=== PATIENT | male | born 1955 | race Caucasian/White ===

== ENCOUNTER 2024-02-21 08:27 | Outpatient (OUT) | payer MEDICARE, OTHER, SELFPAY ==
[2024-02-21 10:13] LABS: Basophils Percent Auto 0.5 % (0.2-2.0); Eosinophils Absolute Auto 0.1 10^3/uL (0.0-0.7); Eosinophils Percent Auto 1.7 % (0.9-7.0); Hematocrit 39.3 % (42.0-54.0); Hemoglobin 13.1 g/dL (14.0-18.0); Immature Granulocytes Abs Auto 0.03 10^3/uL (0.00-0.03); Immature Granulocytes Pct Auto 0.4 % (0.0-0.5); Lymphocytes Absolute Auto 1.9 10^3/uL (1.2-3.8); Lymphocytes Percent Auto 24.4 % (20.5-60.0); Mean Corpuscular HGB Conc 33.3 g/dL (29.9-35.2); Mean Corpuscular Hemoglobin 30.5 pg (25.9-34.0); Mean Corpuscular Volume 91.6 fL (80.0-94.0); Mean Platelet Volume 9.4 fL (9.5-13.5); Monocytes Percent Auto 13.3 % (1.7-12.0); Neutrophils Absolute Auto 4.5 10^3/uL (1.4-6.5); Neutrophils Percent Auto 59.7 % (43.0-75.0); Platelet Count 214 10^3/uL (150-450); Red Blood Count 4.29 10^6/uL (4.70-6.10); Red Cell Distribution Width 12.3 % (11.0-15.0); White Blood Count 7.6 10^3/uL (4.0-11.0)
[2024-02-21 11:30] LABS: Alanine Aminotransferase 33 U/L (16-63); Anion Gap 10.7; Aspartate Amino Transferase 24 U/L (15-37); BUN Creatinine Ratio 20.5; Calcium 9.1 mg/dL (8.5-10.1); Carbon Dioxide 24.5 mmol/L (21.0-32.0); Chloride 107 mmol/L (98-107); Chol HDL Ratio 2.6; Cholesterol 102 mg/dL (<=200); Estimated GFR (African America >60 (>=60); Estimated GFR (Non-African Ame >60 (>=60); Glucose 110 mg/dL (74-106); HDL Cholesterol 39 mg/dL (40-60); Potassium 4.2 mmol/L (3.5-5.1); Sodium 138 mmol/L (136-145); Thyroid Stimulating Hormone 7.153 uIU/mL (0.358-3.740); Triglycerides 60 mg/dL (<=150)
== END 2024-02-21 08:28 | disposition home or self-care (01) ==
PROVIDERS: PCP Internal Medicine; Visit Provider Internal Medicine Cardiovascular Disease
DX: E78.2 Mixed hyperlipidemia (principal); Z12.5 Encounter for screening for malignant neoplasm of prostate; I48.92 Unspecified atrial flutter; Z79.899 Other long term (current) drug therapy; E03.9 Hypothyroidism, unspecified
CPT/HCPCS: 36415; 80048; 80061; 84153; 84443; 84450; 84460; 85025

== ENCOUNTER 2024-02-21 08:33 | Outpatient (OUT) | payer MEDICARE, OTHER, SELFPAY ==
[2024-02-21 11:44] LABS: Prostate Specific Antigen Dx 0.89 ng/mL (<=4.00)
== END 2024-02-21 08:34 | disposition home or self-care (01) ==
LOC: LAB 08:34
PROVIDERS: PCP Internal Medicine; Visit Provider Internal Medicine
DX: Z12.5 Encounter for screening for malignant neoplasm of prostate (principal)
CPT/HCPCS: 36415; 84153

== ENCOUNTER 2024-05-02 09:21 | Outpatient (OUT) | payer MEDICARE, OTHER, SELFPAY ==
--- NOTE | 2024-05-02 09:30 | FL_ITS ---
The [address] [address] Patient Name: PAIGE MONTIEL MRN: [id number] date: 1955 Sex: M Assigned Patient Location: [place] Current Patient Location: [place] Accession/Order Number: [id number] Exam Date: 05/02/2024 09:45 Report Date: 05/02/2024 10:32 At the request of: LOGAN GODDARD Procedure: FL upper GI w air PROCEDURE: FL upper GI w air, FL cineradiography COMPARISON: None. HISTORY: Esophageal Dysphagia R13.19 TECHNIQUE: An air contrast upper gastrointestinal series was performed in the usual manner. Standard level fluoroscopic mode of operation utilized. FINDINGS: ESOPHAGUS:Moderate amount of gastroesophageal reflux extending to the thoracic inlet. No abnormal dilation, stricture, or mucosal irregularity. STOMACH: No obstruction, mass, or ulceration. Normal motility. DUODENUM:No ulceration or diverticulum. OTHER: Negative. FL/FL upper GI w air IMPRESSION: 1. Moderate gastroesophageal reflux. Otherwise unremarkable upper GI study. Electronically authenticated by: DAVID KIM Date: 05/02/2024 10:32
--- NOTE | 2024-05-02 09:30 | FL_ITS ---
The [address] [address] Patient Name: PAIGE MONTIEL MRN: [id number] date: 1955 Sex: M Assigned Patient Location: [place] Current Patient Location: [place] Accession/Order Number: [id number] Exam Date: 05/02/2024 09:45 Report Date: 05/02/2024 10:32 At the request of: LOGAN GODDARD Procedure: FL cineradiography PROCEDURE: FL upper GI w air, FL cineradiography COMPARISON: None. HISTORY: Esophageal Dysphagia R13.19 TECHNIQUE: An air contrast upper gastrointestinal series was performed in the usual manner. Standard level fluoroscopic mode of operation utilized. FINDINGS: ESOPHAGUS:Moderate amount of gastroesophageal reflux extending to the thoracic inlet. No abnormal dilation, stricture, or mucosal irregularity. STOMACH: No obstruction, mass, or ulceration. Normal motility. DUODENUM:No ulceration or diverticulum. OTHER: Negative. FL/FL cineradiography IMPRESSION: 1. Moderate gastroesophageal reflux. Otherwise unremarkable upper GI study. Electronically authenticated by: DAVID KIM Date: 05/02/2024 10:32
--- OUTSIDE RECORDS SUMMARY | 2024-05-02 09:43 | XMS_ITS | CCD ---
Author Organization [facility] Care Team Providers Care Supervisor [employer] Name Role Phone Brian Crowley Primary Care Provider Brian Do Unavailable BRIAN DO Admitting Unavailable BRIAN DO Attending Unavailable BRIAN CROWLEY Referring Unavailable BRIAN CROWLEY Primary Care Unavailable Brian Crowley II Primary Care Provider [phone] Day Romano Unavailable LAURYN Crowley Primary Care Provider [phone] DO Sujit White Emergency Provider Unavailable Unavailable LAURYN Crowley Primary Care Provider DO Sujit White Emergency Provider [phone] DO Vivek Muñiz Admit Provider [phone] DO Vivek Muñiz Attending Provider Unavailable Unavailable DR DAY ROMANO Attending Unavailable ROMANO, DR DAY [place] Consulting Unavailable ROMANO, DR DAY o[place] Admitting Unavailable KEO, DR FORD Primary Care Unavailable [facility] Unavailable KEO, DR FORD Primary Care Unavailable HEMYADIEL, DR NEGIN [place] Admitting Unavailable HEMYADIEL, DR NEGIN [place] Attending Unavailable HEMMER, DR NEGIN [place] Consulting Unavailable KEO, DR FORD Primary Care Unavailable [facility] Unavailable HEMYADIEL, DR NEGIN [place] Admitting Unavailable HEMYADIEL, DR NEGIN [place] Attending Unavailable HEMYADIEL, DR NEGIN [place] Consulting Unavailable LAURYN Crowley Primary Care Provider [phone] DO Jose Owens Attending Provider Jose Owens Attending Unavailable Brian Crowley Primary Care Unavailable Jose Owens Admitting Unavailable Fringjimenez, Vivek Admitting Unavailable Fringjimenez, Vivek Attending Unavailable Brian Crowley Primary Care Unavailable Graciela, Joseluis Meredith Attending Unavail able BRIAN CROWLEY Primary Care Unavailable Graciela, Joseluis Meredith Admitting Unavail able Graciela, Joseluis Meredith Admitting Unavail able Graciela, Joseluis Meredith Attending Unavail able BRIAN CROWLEY Primary Care Unavailable Keo COMBS, Dr. Brian Cano Primary Care [facility] [place] Referring Unavailable Day Romano Attending Unavailable Day Romano Attending Unavailable Keo COMBS, Dr. Brian Cano Primary Care [facility] [place] Referring Unavailable Brian Crowley MD Primary Care Provider [phone] DAY ROMANO Attending BRIAN Riojas Primary Care Unavailable CATHY DUMONT Attending BRIAN Riojas Attending Unavailable BRIAN CROWLEY Attending Unavailable Allergies Allergy Classification Reported Allergen(s) Allergy Type Date of Onset Reaction(s) Facility (1 source) hydrALAZINE Drug Allergy 02-24-2017 [facility] Medications Current Medications Medication Drug Class(es) Dates Sig (Normalized) Sig (Original) amLODIPine 10 mg oral tablet (8 sources) Dihydropyridine Calcium Channel Megan Start: 12-25-2021 End: 02-15-2024 take 1 tablet by mouth once daily amLODIPine (Norvasc) 10 mg tablet Take 1 tablet (10 mg) by mouth once daily. 12/25/2021 02/15/2024 Discontinued (Side effects) Comment on above: Take 10 mg by mouth once daily. apixaban 5 mg oral tablet (9 sources) Factor Xa Inhibitor Start: 02-12-2024 End: 02-15-2024 take 1 tablet by mouth twice daily Eliquis 5 mg tablet Indications: Unspecified atrial flutter (Multi) TAKE 1 TABLET BY MOUTH TWICE A DAY 180 tablet 3 02/12/2024 02/15/2024 Discontinued (Med List Cleanup) Start: 02-23-2022 take 2 tablets by [facility] twice daily Apixaban (Eliquis) 2.5 mg Tablet Active 5 MG PO Twice daily February 23, 2022 12:00am Start: 02-23-2022 take 1 tablet by farzana th twice daily Apixaban (Eliquis) 2.5 mg Tablet Active 2.5 MG PO Twice daily February 23, 2022 9:28am Start: 11-26-2021 take 1 tablet by farzana th twice daily Eliquis 5 MG Oral Tablet take 1 tablet by mouth twice a day Quantity: 180 Refills: 3 Ordered: 10-Jan-2023 Day Romano MD Start : 26-Nov-2021 Active Comment on above: Take 5 mg by mouth t wice daily. atorvastatin 40 mg oral tablet (8 sources) HMG-CoA Reductase Inhibitor Start: 2 take 1 tablet by mouth once daily atorvastatin (Lipitor) 40 mg tablet Take 1 tablet (40 mg) by mouth once daily. 12/03/2021 Active Comment on above: Take 40 mg by mouth once daily. carvedilol 12.5 mg oral tablet (6 sources) alpha-Adrenergic Megan, beta-Adrenergic Megan Start: 2 take 12.5 mg by mouth twice daily Carvedilol Active 12.5 MG PO Twice daily June 25, 2022 12:00am Start: 02-26-2022 take 1 tablet by farzana twice daily at mealtime carvedilol (COREG) 12.5 mg tablet Take 1 tablet by mouth twice daily with meals. 60 tablet 1 02/26/2022 Active take 1 tablet by farzana twice daily carvedilol (Coreg) 6.25 mg tablet Take 1 tablet (6.25 mg) by mouth 2 times daily (morning and late afternoon). Active take 0.5 tablet by m outh in the morning, then take 1 tablet by mouth in the evening Carvedilol 12.5 MG Oral Tablet take 1/2 tablet in the morning, and one whole tablet in the evening Quantity: 0 Refills: 0 Ordered: 10-Jan-2023 DO Active Comment on above: Take 1 tablet by farzana twice daily with meals. chlorthalidone 25 mg oral tablet (4 sources) Thiazide-like Diuretic Start: 2 take 25 mg by mouth once daily Chlorthalidone Active 25 MG PO Daily June 25, 2022 12:00am Start: 02-27-2022 take 1 tablet by farzana th once daily chlorthalidone (HYGROTON) 25 mg tablet Take 1 tablet by mouth once daily. 30 tablet 1 02/27/2022 Active Comment on above: Take 1 tablet by farzana th once daily. ezetimibe 10 mg oral tablet (8 sources) Dietary Cholesterol Absorption Inhibitor Start: take 1 tablet by mouth once daily ezetimibe (Zetia) 10 mg tablet Take 1 tablet (10 mg) by mouth once daily. 09/15/2021 Active Comment on above: Take 10 mg by mouth once daily. GABAPENTIN, BULK, MISC (1 source) GABAPENTIN, BULK , MISC 2 times a day. Active hydroCHLOROthiazide 25 mg / triamterene 37.5 mg oral tablet (7 sources) Potassium-sparing Diuretic, Thiazide Diuretic Start: End: take 1 tablet by mouth once daily triamterene-hydrochl orothiazid (Maxzide-25) 37.5-25 mg tablet Take 1 tablet by mouth once daily. 12/12/2021 Active levothyroxine sodium 0.15 mg oral capsule (7 sources) l-Thyroxine Start: take 150 ug by mouth once daily Levothyroxine Active 150 MCG PO Daily February 23, 2022 12:00am Start: 01-19-2022 take 1 tablet by farzana th once daily Levothyroxine Sodium 150 MCG Oral Tablet TAKE 1 TABLET DAILY. Quantity: 0 Refills: 0 Ordered: 19-Jan-2022 DO Start : 19-Jan-2022 Active Comment on above: Take 150 mcg by mout h daily before breakfast. olmesartan medoxomil 40 mg oral tablet (8 sources) Angiotensin 2 Receptor Megan Start: 2 take 1 tablet by mouth once daily olmesartan (BENIcar) 40 mg tablet Take 1 tablet (40 mg) by mouth once daily. 11/30/2021 Active Comment on above: Take 40 mg by mouth once daily. pantoprazole 40 mg delayed release oral tablet (8 sources) Proton Pump Inhibitor Start: 2 take 1 tablet by mouth once daily pantoprazole (ProtoNix) 40 mg EC tablet Take 1 tablet (40 mg) by mouth once daily. 10/13/2021 Active Comment on above: Take 40 mg by mouth once daily. potassium chloride 20 meq extended release oral tablet (8 sources) Start: take 20 mEq by mouth once daily Potassium Chloride Active 20 MEQ PO Daily February 23, 2022 12:00am Start: 12-03-2021 End: 02-15-2024 take 1 tablet by mouth twice daily potassium chloride CR 20 mEq ER tablet Take 1 tablet (20 mEq) by mouth 2 times a day. 12/03/2021 02/15/2024 Discontinued (Med List Cleanup) take 1 tablet by farzana th once daily potassium chloride CR 20 mEq ER tablet Take 1 tablet (20 mEq) by mouth once daily. Do not crush or chew. Active tamsulosin hydrochloride 0.4 mg oral capsule (8 sources) alpha-Adrenergic Megan Start: 11-09-2021 take 1 capsule by mouth once daily tamsulosin (Flomax) 0.4 mg 24 hr capsule Take 1 capsule (0.4 mg) by mouth once daily. 11/09/2021 Active Comment on above: Take 0.4 mg by mouth once daily. tiZANidine 4 mg oral tablet (7 sources) Central alpha-2 Adrenergic Agonist Start: 01-27-2022 End: 02-15-2024 take 1 tablet by mouth once daily at bedtime tiZANidine (Zanaflex) 4 mg tablet Take 1 tablet (4 mg) by mouth once daily at bedtime. 01/27/2022 02/15/2024 Discontinued (Therapy completed) Start: 01-27-2022 take 4 mg by mouth t hree times daily Tizanidine Active 4 MG PO Three times daily June 25, 2022 12:00am Comment on above: Take 4 mg by mouth o nce daily. Completed/Discontinued Medications Medication Drug Class(es) Dates Sig (Normalized) Sig (Original) levoFLOXacin 500 mg oral tablet (1 source) Quinolone Antimicrobial take 1 tablet by mouth once daily levoFLOXacin 500 MG Oral Tablet TAKE 1 TABLET DAILY. Quantity: 0 Refills: 0 Ordered: 31-Jan-2022 DO Active spironolactone 50 mg oral tablet (1 source) Aldosterone Antagonist Start: 02-27-2022 take 1 tablet by mouth once daily spironolactone (ALDACTONE) 50 mg tablet Take 1 tablet by mouth once daily. 30 tablet 1 02/27/2022 Active Comment on above: Take 1 tablet by farzanaazar rizo once daily. Problems Active Problems Problem Classification Problem Date Documented Da te Episodic/Chronic Aortic; peripheral; and visceral artery aneurysms (9 sources) Dissection of aorta; Translations: [Dissection of unspecified site of aorta] Onset: 02-23-2022 02-23-2022 Chronic Cardiac dysrhythmias (8 sources) Longstanding persistent atrial fibrillation; Translations: [Longstanding persistent atrial fibrillation] Onset: 06-20-2019 02-23-2022 Chronic Cardiac dysrhythmias (1 source) Bradycardia; Translations: [Bradycardia, unspecified] 02-15-2024 Episodic Complications of surgical procedures or medical care (1 source) Drug-induced hypotension; Translations: [Hypotension due to drugs] 02-15-2024 Episodic Disorders of lipid metabolism (8 sources) Mixed hyperlipidemia; Translations: [Mixed hyperlipidemia] Onset: 02-23-2022 02-23-2022 Chronic Essential hypertension (8 sources) Essential hypertension; Translations: [Essential (primary) hypertension] Onset: 02-23-2022 02-23-2022 Chronic Other aftercare (2 sources) Drug therapy finding; Translations: [Long-term (current) use of other medications] Episodic Other aftercare (2 sources) Taking high risk medication; Translations: [Other jail (current) drug therapy] Onset: 11-06-2023 02-15-2024 Episodic Other aftercare (2 sources) Other superintendent terminal (current) drug therapy; Translations: [Other superintendent terminal (current) drug therapy] Onset: 11-06-2023 Episodic Other circulatory disease (4 sources) Other specified disorders of arteries and arterioles; Translations: [OTH SPEC D/O ARTERIES AND ARTERIOLES] Onset: 02-18-2022 Chronic Other injuries and conditions due to external causes (2 sources) At risk for falls ; Translations: [History of fall] Episodic Other nutritional; endocrine; and metabolic disorders (1 source) Simple obesity ; Translations: [Obesity, unspecified] Chronic Other nutritional; endocrine; and metabolic disorders (2 sources) Obesity; Translations: [Obesity, unspecified] Chronic Other nutritional; endocrine; and metabolic disorders (2 sources) Body mass index 30+ - obesity; Translations: [Body mass index (BMI) 38.0-38.9, adult] Onset: 02-15-2024 02-15-2024 Chronic Other nutritional; endocrine; and metabolic disorders (2 sources) Body mass index (BMI) 38.0-38.9, adult; Translations: [Body mass index (BMI) 38.0-38.9, adult] Onset: 02-15-2024 Chronic Other nutritional; endocrine; and metabolic disorders (2 sources) H/O: hypothyroidism; Translations: [Personal history of other endocrine, nutritional and metabolic disease] Onset: 02-23-2022 02-23-2022 Episodic Other nutritional; endocrine; and metabolic disorders (1 source) H/O: raised blood lipids; Translations: [Personal history of other endocrine, nutritional and metabolic disease] Onset: 02-23-2022 02-24-2022 Episodic Residual codes; unclassified (4 sources) Sleep apnea; Translations: [Unspecified sleep apnea] Onset: 11-06-2023 02-15-2024 Chronic Residual codes; unclassified (2 sources) Sleep apnea, unspecified; Translations: [Sleep apnea, unspecified] Onset: 11-06-2023 Chronic Thyroid disorders (10 sources) Hypothyroidism; Translations: [Unspecified acquired hypothyroidism] Onset: 01-13-2023 Chronic Past or Other Problems Problem Classification Problem Date Documented Da te Episodic/Chronic Nonspecific chest pain (6 sources) Chest pain; Translations: [Chest pain, unspecified] Onset: 06-25-2022 06-25-2022 Episodic Other lower respiratory disease (4 sources) Pleurodynia; Translations: [PLEURODYNIA] Onset: 02-08-2022 Episodic Unclassified (2 sources) Never smoked tobacco; Translations: [Never a smoker] Unclassified (1 source) Onset: 02-15-2024 02-15-2024 Results Test Name Value Interpretation Reference Range Facility Office Visit (Cardiology)on 06-08-2023 Follow-up visit Diagnoses/Problems Assessed Atrial flutter (427.32) (I48.92) Hypertension (401.9) (I10) Hyperlipidemia (272.4) (E78.5) Type 1 dissection of ascending aorta (441.01) (I71.010) High risk medication use (V58.69) (Z79.899) Class 2 obesity with body mass index (BMI) of 36.0 to 36.9 in adult (278.00,V85.36) (E66.9,Z68.36) Never a smoker Patient Instructions Please bring all medicines, vitamins, and herbal supplements with you when you come to the office. Prescriptions will not be filled unless you are compliant with your follow up appointments or have a follow up appointment scheduled as per instruction of your physician. Refills should be requested at the time of your visit. Follow up in 6 months Same meds.-remain on Coreg 6.25 mg Chief Complaint PAIGE MONTIEL is being seen for a 6 month follow-up of. Patient is in the office for follow-up for the problems noted below. He has had no cardiac events since he was last seen but he had to cut back on his beta-megan due to dizziness when he stands up. He had recent lab data which I reviewed and discussed with him and his numbers look great. He sees his PCP regularly. He lost 22 pounds since his last visit by healthy lifestyle that he adopted. He was encouraged to continue on same pattern. He has chronic atrial flutter treated with Eliquis and his rate is controlled. He does not have any symptoms associated with it. Apart from class II obesity physical examination was unremarkable Assessment/recommendations : 1?permanent atrial flutter that remains asymptomatic status post radiofrequency ablation.. The patient will be managed with rate control and anticoagulation due to lack of symptoms, Nuclear stress test at [facility] 2018 was normal, echocardiogram 2021 showed normal ejection fraction in 2020 2?high-risk medication with anticoagulation with no bleeding complications, CBC is ordered 3?hypertension on medical therapy under control, 4?sleep apnea on CPAP machine 5?hyperlipidemia on statin therapy,Lipid profile is under excellent control 6?Class II obesity, The patient changed his lifestyle and lost 22 pounds in the process by eating healthy and maintaining adequate exercise. 7?hypothyroidism on replacement therapy followed by PCP 8?status post type I ascending aortic dissection status post surgical repair in [place], most recent CT scan was June 2022 with no progression or changes Surgical History Problems History of Aortic valve repair History of Complete colonoscopy History of Elbow surgery History of Knee replacement History of Lower back surgery Current Meds Medication NameInstruction amLODIPine Besylate 10 MG Oral TabletTAKE 1 TABLET DAILY. Atorvastatin Calcium 40 MG Oral TabletTAKE 1 TABLET DAILY. Eliquis 5 MG Oral Tablettake 1 tablet by mouth twice a day Ezetimibe 10 MG Oral TabletTAKE 1 TABLET DAILY. Levothyroxine Sodium 175 MCG Oral TabletTAKE 1 TABLET DAILY. Olmesartan Medoxomil 40 MG Oral TabletTAKE 1 TABLET DAILY. Pantoprazole Sodium 40 MG Oral Tablet Delayed ReleaseTAKE 1 TABLET DAILY. Potassium Chloride ER 20 MEQ Oral Tablet Extended ReleaseTake 1 tablet twice daily Tamsulosin HCl - 0.4 MG Oral CapsuleTAKE 1 CAPSULE Daily tiZANidine HCl - 4 MG Oral TabletTAKE 1 TABLET AT BEDTIME. Triamterene-HCTZ 37.5-25 MG Oral TabletTAKE 1 TABLET DAILY. Allergies Medication No Known Drug Allergies Recorded By: Eneida Rosenthal; 12/17/2021 10:04:44 AM Social History Problems Alcohol ingestion (V69.8) (Z78.9) ON THE WEEKENDS Caffeine use (V49.89) (Z78.9) 4 CUPS OF COFFEE DAILY Never a smoker No illicit drug use Review of Systems Constitutional: not feeling tired. Cardiovascular: no intermittent leg claudication and as noted in HPI. Respiratory: no cough and no shortness of breath. Gastrointestinal: no change in bowel habits and no blood in stools. Integumentary: no skin rashes. Neurological: no seizures and no frequent falls. All other systems have been reviewed and are negative for complaint. Vitals Vital Signs Recorded: [id number] 08:49AM Heart Rate74, L Radial Qfxajrhx453, LUE, Sitting Caislasrh49, LUE, Sitting Height6 ft 5 in Pabbto289 lb BMI Rsedwkvhxf49.64 kg/m2 BSA Calculated2.69 Tobacco Useb) No Falls Screening (Age 18+)a) No falls within the last year Physical Exam Constitutional: alert and in no acute distress. Neck: neck is supple, symmetric, trachea midline, no masses and no thyromegaly . Pulmonary: no increased work of breathing or signs of respiratory distress and lungs clear to auscultation. Cardiovascular: carotid pulses 2+ bilaterally with no bruit , JVP was normal, no thrills , regular rhythm, normal S1 and S2, no murmurs , pedal pulses 2+ bilaterally and no edema . Abdomen: abdomen non-tender, no masses and no hepatomegaly . Skin: skin warm and dry, normal skin turgor . Psychiatric judgment and insight is normal and oriented to person, place and time . Signatures El (more content not included)... Normal [facility] Coding Summaryon 05-03-2023 Coding Summary HTMLBase 64 OoyuowgjVXf4lHj+PGhlYWQ+PE 6JWGGdY94rkVYalS7gN9POJOmP XaukMZVYBZhVBvMosaUtXG2epZ NjZXJu IC8+UK5tYXTtYyowgFRio6E5uE D1Q25qxu2bIHftbTO5KYBdDyPv vpmbq1nuiJu5HZkoAdqjIqHa SPHvxL03GZG0cK62Ix80zHGccJ Iqr1goyCh4BqOlSHToTXF8qCza ACveb3WlCWEaU79fdCYxa1D5 XHUmvQlliXKgIlKjnXE0nJ6hTG tsllgty5ufnwtqYwl8pq04aMWk z8F6rCQ4B9GmsrT2GZJelJEn WgkogKPAaI5tjwxfs6aigcxfSd HxTGXiSRr0FTx1JDDegBniLmRy VB50XKX0LINhboAmK7KwBCGa jEvrBuD0j3W0Zr1CD0GPWvrdT9 VNTUFSWTwvdGQ+WJ86ae48A9Km JgmlZpc2GWVoEXL5pKN4pG2v QTTnYQcbh8J7cVA1R3IqldMiiv 0lh3afSVEaRPbzL02olOWdp5M7 ZYDjqCV9MDZoeZbeEkSrfU19 Oyc+MTChaOszm3CmLlarl1snb2 tfdAa6StkwSDDeetBcvNiwATY3 q4VpDx9cAESahBB6gYK9hH8q RoWyQgA9FCfuE809LnLuuLTpQp pkU91vS8DwsYN+JDHgBkt0ZODh lBivJU4rC5XhAATomovkrZYw uAhsLE8uHVLmlwntPXFxxN1dDW WfM6g9AfYcQpK5ZAssR9LyIDOq pkbtXv75xD1rVeFqCuH6CTkq B1QqkuL1ECQzpGStMMvpDSW8O0 9sj7Z9FKDqZYAaHGQ1gNW7tD5o bGlnbjogbGVmdDsgdmVydGlj XEuxSPykR040PHIllZsaJsIhIW luZyBEYXRlOiAgMDgvMjMvMjAy MzwvdGQ+EEAfHQG1yLkwXNTc bFRzYGrpSy4haXijgFhtYT7qYX ZebdvyZGBarA4aMJZsdRThmFdz RI0yWLPhthvff768RdZsVZF9 XGXdlFZdY0AqaP8pEsIzKEDrZW UcT9LagKEcIRhxN920QTlmZpP7 SDAynvZyF6NwZOCbwIbsNqW2 j9S0Mr6He1EjiariT9LgiYWdMr KaPshyIUg2D0RoBkaowTH+PC90 RQWfCJ01HUl3DQP6eYwvSAqd ZHGcU3KbtS5oSmSpJSRqYZYrBo c+PHRhYmxlIHdpZHRoPScxMDAl FwPkbIzhJM6zNx6yKNCrOQUs aHtcuXUzDlPcz3vsQRLiDGqbTB 8ysEbmS5QkrSQ9XJXag4b5Ha31 S08iT9LzuPA+TLKvqCZ1xEH6 yC7jUjQmEeA5QOliS277VgBtvY OgTjysr7dqr9mtsWd4IjU6HOMu saDsbAhnJRG2l4MwRi36D83z IHdpZHRoPSIxNSUiIHZhbGlnbj 0pxB2gQi2+ZRNkoSG0rXT5hA8q XiTnQpV7QDxiM086MoQgvDFu Cvnxb0bjw5eljNe8QaVqLOAiss LmxHjbZWX5z5VzAk54H1BmsAyz p2EtLna0ut27dKWos5R2dJX8 I2GtGXHbkoeioTYmvPjmOD3pZB OklwvhWGCjaT2hZAJtQ3l9BqQz ZhY6LWldJ2KumiC8YCUmmIVz WABzuDUFoM6dysppx4tlskopPn HfBJYrQLi4NSh4DACtdWriXkQo WNN2OfO3RNS1kKJlvA0uxKcd pptrqU2bMgz+UKQ9qPFbjYDCDM 1lOjwvdGQ+JCBfUYH6zKsgCLnk DOOjnS4yLSFwR9l2XmEaHcY3 JCfzS1ZmmcQ5PBXrmTIaYAWxkJ TYcL9wgsona3cgweuaUeImNKNa LUa7KKf3ACXhaEvrUqTaONK8 LaI2KYY4zSRinG5oiIncxngpyA 9wOyc+QltffIkhSND9ZGp7I0Zt Bjf0TVJyzDcsTN8ukHNgMJht Lr8xcHpzqPwiKT0pREReqkyng4 67EeHes0vxHFBbpQJnTQnkWGU1 C28ir1T9EIFjULYkIBS9zEU2 eJ2qfPosateeqKSjxBfydePxfK fsIFcbVRqlT374BCShkEhgBzKt GDr7I8AmJhv8QBImfJywDZ5d eQZpTUtxLl3hcLsjwRmkRE3tTH Brkqcpl705EdUje0avEOIlvDCc SPleRUN3M84cu0K4IBDwUCDf SVZ8eQF4sQ2qgYdbeevdvUWzsJ ddjhXckUdcPJjwMEadF499GEVf bSflRzQqcSd6V9ZpMob4WYFs hOhiGO4cwFVqKTliEy0bzNxcwA xbPQ1zKEXtarhfg252JhAfx6kp VBNruJAcHFzzNYM7R84db4F6 IYIjWPFfTUQ5sHZ2fQ8jgGkuzr ogbGVmdDsgdmVydGljYWwtYWxp K050WMKroZvjBiZaxCnvzbWd COopNOm3H2HbIhplxBQ+PC90YW RiVD91uYTxrMYqm9nghMk5CaXb AUSrMLO2vRteZNakj3ZxOAPh N46lmQQqz4G2RLHajZzyqCQnMg MhhTK4lM5xYEjtiuukm7vtqroy Ltzue1hmey34kS74O54oCIuz LUNeJSCaPCPjBHPgmLyooo4uyZ 9wIi8+SCEcvQA2hKJ1gI6fBBYr CwL7RRmpA996JaYpiCVpMmdj q0mch6fcyKv8DzD6XNHdlvWsmI xlJYS0y3UfBw77I85eBKmsQOCa EUQhVLIwLVKdjRgbha1hdA4x Ii8+VHYodMS8pJC3xU3jOtFzQr S3RRysX880PoSvnHExBzgaS05a D7MgmRD+XGZrUxn6KOBdvDwj SN8loWArQTboCp5fEIQ6AiSxFz PqVCixT3LkMNVevtedjrzzjCM5 YKKwJJMvkE59Rh2cvYjlNNZg wFNXtY4rhlzgi8vvkoalFsHiHC ZxODa7LNb5JUDpnUxsMkVeKOD3 XqF0XHW3sKBykM8gpEruifkl yY0oV2CdIXPgpfmeXw50uP8yIv ZoXjZ9OLrmZyq+P1iJSCRIRgqb R1DFFDLRRTqXPySFIV78YB35 vOHdr3O7pSH9V4PzFJMqictvjx obyUQ4HHUfPJIlrU06rDBkMGpi Qv8gm0E9q534HNPnMHZghQ81 Kr9fgKzcTOLpfIFGsL1qvtiwt9 phweczZyYdTPXcBMa0TAu8SXFi uQtgVuRfTGW9LjE9GIY0fRYo zG0saSnyypbjzX8wDsv+MDkvMj JlBRi4QFxmpOC+LLDxGWM8qYzk CXbdIBLczB8lXUUbT4r1TmYu BuP1NQnkM2DsJFXhjdeaXo21pQ 7vUwMxDpL3QXcnJ0KxsmK2DTHs xPQqJDgeOYR5O45px1V4CJIg IPKiQQR8kEE7cA1yiDwlpbvbxH HqlZrndrPfrPxiXObjULicG283 KCUjfVffNmM5CLenRCJyYS66 RA63bZQzs2B7cYS4W7IrBDZyem mcopzhnJC1IHEbVCUzzA34rHEs PQyfEr1sn7L3b836CAInPNZb lM14Nq2fpJivUATbfQOEtW9iwt hqi8ebyicfUiFsYEDvIHa8RBk3 PSQmiUugOgJyAFA0LoV8WEH8 wTJtzG4smVwbsllszY0wCuw+TU FMRTwvdGQ+PTGlANF6lUdkETve MDCttT7yTHGtY2o5AwYzPvI2 OOriR3AcTWKtfgvvHb11gI6eZr OqXmP2VSihG2QhugU7VKTvtLMb VItiQPG9Q86ih7W2BQLmNFWe OMJ0rVQ2aU6dyMwaiaukaVVntP rtycBgyGwpPBwqCBxqC160PDGs zIvjGzOyoLXSgRDqCIL8GI75 ZI44E9QgHheomVKfxYZ+PHRhYm xlIHdpZHRoPScxMDAlJyBzdHls HE9tVj0uVGYyERHetMqqlTFv SpYnh9fnPNYvYExpCR1qqEdfV8 CccGD3GILqk3c8Fz58L41nY4Dv dXA+EXNpeVG3aVP5bG7uPlOl WhA3LVdhZ161QsPdiMOwVsshg0 hdp2kyuPx8GjRwFFJnyrTqzCku PXU7g4HlTz43X07eAYypJFAd TMMmUGHmHHHqdXgtep1ciH7mRn 8+YIXddOG2qKI7pH2uVeSePxE5 WXkwY789QqQnzDWjMtphV92w J7QoxZM+YLUgGvw6MHImoEwlFV 7htZEdTRjbFm9dRAA1LbQyEkJf VApgQ5LiTUKkwnpdvyuijFG9 KKTyCFGcsS46Ag6ujAvuNm1uSS YyKDX1VISweXNsI7MxiY9qEbWw LYKeIBPyX2LepGJrZJyrW979 BQcsIiV9VLQunpKzV8WnCUIsgT fxUmO2a2P3Fo5WdSkayLIeFJ0m TdQwGVl1F3OeQfb6YUJbbGtx BP5vxSNyYSsnCt2wlQlxdWwiWL 9aRGDlhsnls939CbPjy3djOVIj pRQnZLsbOFM0H22bb2V9AVOs GZHwCUJ9hNA6xE4reYmjwdnaeQ RlbCsoufMorHqgZNdcTInuO203 YHNfaMyzQiVQVju0Q8OjDhh7 PPAirHcgGY0acDNzQJkhMi7dgV ybmAozXJ8bYBAasfbwa580CbUz b8geCQWukPWtIHvbDTE3Q58z w9H6WGYiFRCvMCE2yER3gV1jzJ lnbjogbGVmdDsgdmVydGljYWwt TMitH029GYGfdIanNe9DNkn2 L8WlZss7PJRytMjmOO0orKFvGY ibVb6lpYsgdMtvMG7uKKVrbqrb o765HxAqu2kkTAHuvNZqHRxf DHQ8G32ux2S6NZYbSHZeHZV3hN A2lI0dnFxvnmzvzIWnpWiigcRz gKwcBCayEUebC806YPHxpDxt PlBheWVyOjwvdGQ+XS82gb71M2 JfXbcrMsb5NXUhHMU4lDS6jE7w NYVlFNywa3U6fSV6W6HdaoAn ci1 (more content not included)... [facility] Resultson 3 [facility] - [facility] Results [id number]#1.[facility] Teston Pathology Send Out. See Report [facility] Comment on above: Order Comment: GANGL ION CYST OF RIGHT ELBOW Performed By: #### 2 [id number] ####[facility] (DEFAULT)[address] [place] [address] Consent Formson 04-25-2023 Consent Forms [id number]#1.[facility] Discharge Instructions [id number]#1.00[facility] Outside Recordson 04-25-2023 Outside Records [id number]#1.00[facility] Telemetry Stripson 3 Telemetry Strips [id number]#1.00[facility] 04-24-2023 Anesthesia Note Patient: SA HELEN MONTIEL Age: 67 years Sex: MALE : 1955 Associated Diagnoses: None Author: Jeromy Holman MD Postoperative Information Anesthetic utilized: General. Assessment Anesthetic outcome No anesthetic complications noted. Plan Transfer/ Discharge: Patient can be discharged from PACU when criteria met. Condition good. [Electronically Signed on: 04/24/2023 12:21 EDT] Jeromy Holman MD [Verified on: 04/24/2023 12:21 EDT] Jeromy Holman MD [facility] Anesthesia Note Patient: SA HELEN MONTIEL Age: 67 years Sex: MALE : 1955 Associated Diagnoses: None Author: Jeromy Holman MD Preoperative Information Anesthesia history: Family history. Patient history: No prior anesthesia problems. Review of Systems Constitutional: Negative. Cardiovascular: No Chest Pain. No SOB. Health Status Allergies: Allergic Reactions (All) No known allergies Current medications: Home Medications (13) Active amLODIPine 10 mg oral tablet 10 mg = 1 tab(s), PO, Daily apixaban 5 mg oral tablet 5 mg = 1 tab(s), PO, BID atorvastatin 40 mg oral tablet 40 mg = 1 tab(s), PO, Daily carvedilol 12.5 mg oral tablet 12.5 mg = 1 tab(s), PO, BID chlorthalidone 25 mg oral tablet 25 mg = 1 tab(s), PO, Daily gabapentin 100 mg oral capsule 200 mg = 2 cap(s), PO, TID Klor-Con M20 oral tablet, extended release 20 mEq = 1 tab(s), PO, Daily levothyroxine 175 mcg (0.175 mg) oral tablet 175 mcg = 1 tab(s), PO, Daily olmesartan 40 mg oral tablet 40 mg = 1 tab(s), PO, Daily pantoprazole 40 mg oral delayed release tablet 40 mg = 1 tab(s), PO, Daily spironolactone 50 mg oral tablet 50 mg = 1 tab(s), PO, Daily tamsulosin 0.4 mg oral capsule 0.4 mg = 1 cap(s), PO, Daily Zetia 10 mg oral tablet 10 mg = 1 tab(s), PO, Daily Problem list (past medical history): All Problems Aortic dissection / SNOMED CT 157701441 / Confirmed H/O hyperlipidemia / SNOMED CT 876576530 / Confirmed H/O sleep apnea / SNOMED CT 365786003 / Confirmed H/O atrial flutter / SNOMED CT 5810761677 / Confirmed HTN (hypertension) / SNOMED CT 3230126508 / Confirmed Hypothyroid / SNOMED CT 33267006 / Confirmed Histories Family History: Aorta Father Procedure history: Dissection of ascending aorta and aortic arch ([id number]) in 2013 at 58 Years. 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 Back ([id number]) in 2010 at 56 Years. Comments: 04/18/2023 13:30 Ijeoma Mcghee RN rods in back Colonoscopy ([id number]). Social History Electronic Cigarette/Vaping Assessment Electronic Cigarette Use: Never. Alcohol Assessment Use: Current. Beer, 1-2 times per week Tobacco Assessment Never tobacco user Tobacco Use:. Substance Abuse Assessment Substance use: Never. Employment/School Assessment Retired . Social & Psychosocial Habits Alcohol 04/18/2023 Alcohol Use: Current Type: Beer Frequency: 1-2 times per week Employment/School 04/18/2023 Status: Retired Substance Use 04/18/2023 Substance use: Never Tobacco 04/18/2023 Smoking tobacco use: Never tobacco user Electronic Cigarette/Vaping 04/18/2023 Electronic Cigarette Use: Never . Physical Examination Pain assessment: Self-reports no pain. General: Alert and oriented. Airway: Mallampati classification: II (soft palate, fauces, uvula visible). Temporomandibular joint mobility: Good. Mouth: Teeth ( Several missing; deines loose ). HENT: Normocephalic. Respiratory: Lungs are clear to auscultation. Cardiovascular: Regular rhythm. Neurologic: Alert, Oriented. Review / Management Laboratory Results Plan Citizen Of The [place] Society of Anesthesiologists#(ASA) physical status classification: Class III. Anesthetic Preoperative Plan Anesthesia: General. . Anesthetic plan, risks, benefits, and alternatives discussed with the patient and/or family. Patient verbalized understanding. Informed consent was given. Anesthetic technique: General anesthesia. [Electronically Signed on: 04/24/2023 10:43 EDT] Jeromy Holman MD [Verified on: 04/24/2023 10:43 EDT] Jeromy Holman MD Normal [facility] Inpatient Patient Summaryon 04-24-2023 [place]patient [place] [address] Patient Discharge Instructions Name: DINESHPAIGE : 1955 Patient Address: [address] [place] [address] Primary Care Provider: Name: BRIAN CROWLEY After you are discharged if you find you have any questions, please, call [phone] ext [phone] to speak to a nurse. Discharge Diagnosis: Ulnar neuropathy at elbow of right upper extremity Prescription Information: If you have been given a prescription for narcotics, seek immediate medical attention if you have any difficulty breathing or any sudden status changes such as confusion and sleepiness. If you or anyone you know is experiencing suicidal thoughts, mental health, alcohol and/or drug addiction problems; contact the [facility] 03/04 Crisis Hotline -Text 4HIYF rb [phone]. If you received any narcotics, sedation, or any other medication that causes drowsiness for the next 24 hours, unless otherwise directed: ? Do not drive a car. ? Do not operate machinery such as power tools, lawn mowers, drills, sewing machines, or stoves ? Avoid alcoholic beverages and drugs for allergies, nerves, or sleep ? Do not make important personal or business decisions or sign any legal documents [facility] would like to thank you for allowing us to assist you with your healthcare needs. The following includes patient education materials and information regarding your injury/illness. PAIGE MONTIEL has been given the following list of follow-up instructions, prescriptions, and patient education materials: Follow-up Instructions With: Address: When: Javi [address] [place] [address] [facility] (1) 05/04/2023 10:45 AM Medications During the course of your visit, your medication list was updated with the most current information. The details of those changes are reflected below: Medications to Continue That Have Not Changed Other Medications amLODIPine (amLODIPine 10 mg oral tablet) 1 tab(s) Oral every day. apixaban (apixaban 5 mg oral tablet) 1 tab(s) Oral 2 times a day. atorvastatin (atorvastatin 40 mg oral tablet) 1 tab(s) Oral every day. carvedilol (carvedilol 12.5 mg oral tablet) 1 tab(s) Oral 2 times a day. chlorthalidone (chlorthalidone 25 mg oral tablet) 1 tab(s) Oral every day. ezetimibe (Zetia 10 mg oral tablet) 1 tab(s) Oral every day. gabapentin (gabapentin 100 mg oral capsule) 2 cap(s) Oral 3 times a day. levothyroxine (levothyroxine 175 mcg (0.175 mg) oral tablet) 1 tab(s) Oral every day. olmesartan (olmesartan 40 mg oral tablet) 1 tab(s) Oral every day. pantoprazole (pantoprazole 40 mg oral delayed release tablet) 1 tab(s) Oral every day. potassium chloride (Klor-Con M20 oral tablet, extended release) 1 tab(s) Oral every day. spironolactone (spironolactone 50 mg oral tablet) 1 tab(s) Oral every day. tamsulosin (tamsulosin 0.4 mg oral capsule) 1 cap(s) Oral every day. It is important to always keep an active list of medications available so that you can share with other providers and manage your medications appropriately. As an additional courtesy, we are also providing you with your final active medications list that you can keep with you. amLODIPine (amLODIPine 10 mg oral tablet) 1 tab(s) Oral every day. apixaban (apixaban 5 mg oral tablet) 1 tab(s) Oral 2 times a day. atorvastatin (atorvastatin 40 mg oral tablet) 1 tab(s) Oral every day. carvedilol (carvedilol 12.5 mg oral tablet) 1 tab(s) Oral 2 times a day. chlorthalidone (chlorthalidone 25 mg oral tablet) 1 tab(s) Oral every day. ezetimibe (Zetia 10 mg oral tablet) 1 tab(s) Oral every day. gabapentin (gabapentin 100 mg oral capsule) 2 cap(s) Oral 3 times a day. levothyroxine (levothyroxine 175 mcg (0.175 mg) oral tablet) 1 tab(s) Oral every day. olmesartan (olmesartan 40 mg oral tablet) 1 tab(s) Oral every day. pantoprazole (pantoprazole 40 mg oral delayed release tablet) 1 tab(s) Oral every day. potassium chloride (Klor-Con M20 oral tablet, extended release) 1 tab(s) Oral every day. spironolactone (spironolactone 50 mg oral tablet) 1 tab(s) Oral every day. tamsulosin (tamsulosin 0.4 mg oral capsule) 1 cap(s) Oral every day. Take only the medications listed above. Contact your doctor prior to taking any medications not on this list. Diet & Activity Patient Activity Level: Patient Diet: Patient Activity Restrictions: Comment: Patient education materials, if any, will display below DR. MILLER POST OPERATIVE ELBOW/ULNAR NERVE TRANSPOSITION INSTRUCTIONS SURGEONS WRITTEN INSTRUCTIONS: Keep your hand elevated above your elbow as much as possible. Wiggle your fingers frequently while awake DO NOT lift heavy objects or fireworks inspector forcefully with the affected extremity. DO NOT remove your dressing until seen in office. If the dressing/splint becomes (more content not included)... [facility] 04-24-2023 L ------ Specimen: [id number] Received: 04/25/23 Status: DERREK Pickett Num: [id number] Spec Type: Surgical Subm Dr: Masoud Owens Tissues: A Ganglion Cyst (RT ELBOW) Procedures: HE, Gross/Micro L3 Age/ Patient Sex Location Account Attending Physician Paige Montiel 67/M [facility] [id number] Masoud Owens SPEC NUM: [id number] RECD: 04/25/23 STATUS: DERREK PICKETT NUM: [id number] KAVITA: 04/24/23-8 [facility] DR: Masoud Owens ENTERED: 04/25/23-12[address] [facility] [address]: Radha,Lab SPEC TYPE: Surgical DEPT: MAG BHARDWAJ ORDERED: ANGIE, Gross/Micro L3 ORDERED: ANGIE, Gross/Micro L3 Pathological Diagnosis Soft tissue, right elbow, excision: - Chronic and large degenerated ganglion cyst Clinical Information None provided Gross Description Received in formalin labeled with the patient's name, date of and ganglion cyst right elbow is a 1.7 x 0.6 x 0.3 cm cárdenas-white, rubbery tissue with a rubbery, pacheco-cárdenas cut surface. Entirely submitted in one cassette labeled A1. Microscopic Description One H E slide reviewed. The microscopic examination confirms the diagnosis. CPT Codes 01213 Specimen: [id number] Received: 04/25/23 Status: DERREK Pickett Num: [id number] Spec Type: Surgical Subm Dr: Masoud Owens Tissues: A Ganglion Cyst (RT ELBOW) Procedures: Marivel DOTSON/Kate L3 Patient: Paige Montiel [id number] (Continued) Signed (signature on file) Elliott Burkett MD 04/26/231913 [facility] MAGR Intraoperative Recordon 04-24-2023 MAGR Intraoperative Record MAGR Intra-Op Record Summary Primary Physician: Joseluis Owens DO Finalized Date/Time: 04/24/23 12:22:48 Pt. Name: PAIGE MONTIEL /Sex: 1955 MALE Med Rec #: [id number] Physician: Joseluis Owens DO Financial #: [id number] Pt. Type: D Room/Bed: / Admit/Disch: 04/24/23 07:46:32 - Institution: Case Times MAGR Entry 1 Patient In Room Time 04/24/23 10:40:00 Out Room Time 04/24/23 12:22:00 Anesthesia Start Time 04/24/23 10:41:00 Stop Time 04/24/23 12:21:00 Surgery Start Time 04/24/23 11:04:00 Stop Time 04/24/23 12:13:00 Last Modified By: Phyllis Wills RN 04/24/23 12:22:21 Case Attendance MAGR Entry 1 Entry 2 Entry 3 Case Attendee Joseluis Owens William MD Kokinda, Diane RN Andrew DO Role Performed Surgeon - Primary Anesthesiologist of Jute Bag Cutting Machine Operator Record Time In 04/24/23 10:55:00 04/24/23 10:40:00 04/24/23 10:40:00 Time Out 04/24/23 12:02:00 04/24/23 12:22:00 04/24/23 12:22:00 Procedure Ulnar Nerve Ulnar Nerve Ulnar Nerve Decompression(Right) Decompression(Right) Decompression(Right) Last Modified By: Phyllis Wills RN, Diane RN Kokinda, Diane RN 04/24/23 12:22:23 04/24/23 12:22:23 04/24/23 12:22:23 Entry 4 Entry 5 Case Attendee Laury Pelayo Leigh-Ann CSFA CATTLE CARE WORKER CATTLE CARE WORKER Role Performed Scrub Personnel Embedded Systems Software Engineer Time In 04/24/23 10:40:00 04/24/23 10:40:00 Time Out 04/24/23 12:22:00 04/24/23 12:22:00 Procedure Ulnar Nerve Ulnar Nerve Decompression(Right) Decompression(Right) Last Modified By: Phyllis Wills RN, Diane RN 04/24/23 12:22:23 04/24/23 12:22:23 Surgical Procedures MAGR Pre-Care Text: A.20 Verifies operative procedure, surgical site, and laterality Im.150 Develops individualized plan of care Entry 1 Procedure Ulnar Nerve Primary Procedure Yes Decompression Primary Surgeon Joseluis Owens Modifiers Right Masoud DO Surgeon Comment RIGHT ULNAR NERVE Start 04/24/23 11:04:00 TRANSPOSTION Stop 04/24/23 12:13:00 Anesthesia Type General Surgical Service Orthopedics Wound Class Clean Technique Details Closure Technique Primary Entire procedure No was performed via laparoscope or robotic assistance Last Modified By: Phyllis Wills RN 04/24/23 12:22:32 Post-Care Text: O.730 The patient's care is consistent with the individualized perioperative plan of care General Case Data MAGR Pre-Care Text: A.350.1 Classifies surgical wound Entry 1 Case Information OR MAGR OR 01 Case Level Level 4 Wound Class Clean Specialty Orthopedics ASA Class 3 Diagnosis Preop Diagnosis ULNAR NEUROPATHY Postop Same As Preop No Postop Diagnosis ULNAR NEUROPATHY-DECOMPRESSION ULNAR NERVE Blunt or No Is the procedure No penetrating injury considered occured prior to Emergent/Urgent? the start of the procedure: Last Modified By: Phyllis Wills RN 04/24/23 11:46:21 Post-Care Text: O.760 Patient receives consistent and comparable care regardless of the setting Patient Positioning MAGR Pre-Care Text: A.280 Identifies baseline musculoskeletal status Im.40 Positions the patient Im.80 Applies safety devices Entry 1 Procedure Ulnar Nerve Body Position Supine Decompression(Right) Left Arm Position Extended on Hand Table Right Arm Position Extended on padded arm board Left Leg Position Extended Right Leg Position Extended Feet Uncrossed? Yes Press Points Checked Yes Positioning Device Arm Boards, Arm Strap, Outcome Met (O.80) Yes Pillow, Safety Strap Last Modified By: Phyllis Wills RN 04/24/23 11:11:08 Post-Care Text: E.290 Evaluates musculoskeletal status O.80 Patient is free from signs and symptoms of injury related to positioning Skin Prep MAGR Pre-Care Text: A.30 Verifies allergies Im.270 Performs skin preparation Im.270.1 Implements protective measures to prevent skin and tissue injury due to chemical sources Entry 1 Skin Prep Syntegrity Prep Agents (Im.270) 7.5% Povidone-Iodine Prep By Phyllis Wills RN Scrub 10% Povidone-Iodine [place] Prep Area (Im.270) Elbow and forearm, Hand Prep Area Details Right Skin Prep Agent Dry Yes Without Pooling Hair Removal Syntegrity Hair Removal Methods No hair removal performed Outcome Met (O.100) Yes Last Modified By: Phyllis Wills RN 04/24/23 11:11:45 Post-Care Text: E.10 Evaluates for signs and symptoms of physical injury to skin and tissue O.100 Patient is free from signs and symptoms of chemical injury Counts Verification MAGR Pre-Care Text: A.20 Verifies operative procedure, surgical site, and laterality A.20.2 Assesses the risk for unintended retained foreign body Im.20 Performs required counts Entry 1 Procedure Ulnar Nerve Decompression(Right) Counts Verification Initial Counts Items included in Sponges, Sharps Initial Counts Manual the Initial Count Method Initial Counts Phyllis Wills RN, Initial Count Time 04/24/23 10:24:00 (more content not included)... [facility] Record [facility] Physician: Joseluis Owens DO Finalized Date/Time: 04/24/23 13:04:42 Pt. Name: PAIGE MONTIEL/Sex: 1955 MALE Med Rec #: [id number] Physician: Joseluis Owens DO Financial #: [id number] Pt. Type: D Room/Bed: / Admit/Disch: 04/24/23 07:46:32 - Institution: PACU Case Times MAGR Entry 1 In PACU I 04/24/23 12:23:00 Discharge from PACU 04/24/23 13:03:00 I Last Modified By: Kimberly Bryant RN 04/24/23 13:04:40 Finalized By: Kimberly Bryant RN Document Signatures Signed By: Kimberly Bryant RN 04/24/23 13:04 [facility] 04-24-2023 MAGR Postoperative Record MAGR Phase II Record Summary Primary Physician: Joseluis Owens DO Finalized Date/Time: 04/24/23 13:50:16 Pt. Name: PAIGE MONTIEL/Sex: 1955 MALE Med Rec #: [id number] Physician: Joseluis Owens DO Financial #: [id number] Pt. Type: D Room/Bed: / Admit/Disch: 04/24/23 07:46:32 - Institution: Phase II Case Times MAGR Pre-Care Text: Patient is free from s/s of injury. Patient remains free from compromised physical state related to surgery or anesthesia. Patient comfort maintained. Patient/family verbalize understanding of discharge instructions. Entry 1 In PACU II 04/24/23 13:05:00 Discharge from PACU 04/24/23 13:42:00 II Last Modified By: Isabel Arriola RN 04/24/23 13:50:09 Post-Care Text: The patient remains free from s/s of injury. Patient's vital signs stable, circulation maintained, return to preop mental and physical status, opsite/dressing intact, minimal or absent nausea and vomiting, tolerates po intake. Patient verbalizes adequate pain control. Patient/family express understanding of discharge instructions. Finalized By: Isaebl Arriola RN Document Signatures Signed By: Isabel Arriola RN 04/24/23 13:50 [facility] 0 04-24-2023 MAGR Preoperative Record MAGR Pre-Op Record Summary Primary Physician: Joseluis Owens DO Finalized Date/Time: 04/24/23 13:11:44 Pt. Name: PAIGE MONTIEL/Sex: 1955 MALE Med Rec #: [id number] Physician: Joseluis Owens DO Financial #: [id number] Pt. Type: D Room/Bed: / Admit/Disch: 04/24/23 07:46:32 - Institution: Pre-Op Case Times MAGR Pre-Care Text: Patient will be optimally prepared for surgery. Patient is free from s/s of injury. Provide information to patient/family related to plan of care. Verify patient allergies. Confirm identity and verify consent before the operative or invasive procedure. Entry 1 Patient Arrival Time 04/24/23 07:55:00 Preop Departure 04/24/23 10:38:00 Last Modified By: Isabel Arriola RN 04/24/23 13:11:36 Post-Care Text: Patient is prepared mentally and physically and is ready for surgery. The patient remains free from s/s of injury. Patient/family express understanding of plan of care and participate in decisions affecting his or her perioperrative plan of care. Allergies documented appropriately. Patient identifiers and consent correct. General Comments: Reviewed for the next 24 hours not to do anything that requires concentration. Denies chest pain, shortness of breath or illnessess. Denies pacemaker/defib. Denies sleep apnea. 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 Anesthesia: General Indications for surgery: The patient had progressive loss of function of the ulnar nerve with atrophy of the interosseous muscle weakness and loss of sensation. He had failed conservative treatment and he was experiencing an ongoing neurologic deficit. Estimated blood loss: Scant Complications: None Findings: Entrapment of the ulnar nerve at the cubital tunnel additionally an incidental finding was made of a large ganglion compressing the ulnar nerve distal to the cubital tunnel the ganglion was 3 cm in diameter Procedure summary: After administration of general anesthesia the right upper extremities prepped and draped in usual fashion a timeout was taken the arm was exsanguinated and tourniquet was inflated to 250 mmHg. A curvilinear incision was made over the cubital tunnel. It was noted that the patient had a previous surgical scar around the triceps and ulna but this was not in direct communication with the cubital tunnel. The ulnar nerve was identified the cubital tunnel was incised and other nerve was gently freed up I then created a fascial sling anterior to the medial epicondyle. I began to transpose the nerve into the sling but distally the nerve was hung up so I dissected further and discovered a ganglion cyst in direct approximation and compression on the nerve. The cyst had a stalk that seem to emanate from the ulnar humeral joint. This was cut off at its base and then sewed closed with a #2 Vicryl suture. Approximately 3 cc of gelatinous fluid was expressed from the cyst and a small amount of capsule was excised and sent to the lab for histopathologic studies the cyst was then direct approximation and partially scarred to the nerve. I was then able to complete the transposition of the nerve. The sling was sewed over the nerve with a #2 Vicryl suture. I then took the elbow through range of motion and noted that the nerve was free and could be translated within the fascial sling. I irrigated thoroughly and achieved hemostasis and then closed the subcutaneous layer with a #2 Ethibond suture and then the skin with a 3-0 nylon suture. Sterile dressings were applied. [Electronically Signed on: 04/24/2023 12:13 EDT] Joseluis Owens DO [Verified on: 04/24/2023 12:13 EDT] Joseluis Owens DO [facility] Patient Handouton 04-24-[address] MILLER POST OPERATIVE ELBOW/ULNAR NERVE TRANSPOSITION INSTRUCTIONS SURGEONS WRITTEN INSTRUCTIONS: Keep your hand elevated above your elbow as much as possible. Wiggle your fingers frequently while awake DO NOT lift heavy objects or fireworks inspector forcefully with the affected extremity. DO NOT remove your dressing until seen in office. If the dressing/splint becomes too tight, you may loosen or remove and rewrap the outer elastic bandage. You may shower in 1 day but you must keep the dressing dry. If you have any problems or concerns, please call the office at [phone] or go to the emergency room. 7. Follow up as scheduled Normal [facility] Coding Summaryon 04-21-2023 Coding Summary HTMLBase 64 NvgwkbecPZp5fMf+PGhlYWQ+PE 2UVGNmQ26btYOltZ8cR4PYQOxS XjtpKVEZCGhCObBcojMiMW2vaH NjZXJu IC8+QM6fQTBvGbhgcPDzk5A3yE J3X39jfk9rDBxriJV1EPQkIkIr ltlrm9wfcEh2ODbqUlkqYrMp HHHvgM65PTO8iG04Nq75tPIslM Feg0cpgMx5LzKxFMJdOEH5rMmr SVhcd5WoWPHgC29maNIvf7J4 RKZsaIobzETeXhAwqIC0xJ5bLB rdhcwdi3ffgthtMcz4da36tUCz n2E0kNQ8E2SzprO4TUGgtPNa IwqufWDFcM5lbpoyf7hlicbxEx JnOHFbMUc6BBq8CGWfuVnwAbSt UM35SXY7FOUftgStU7GhKNFg zZhiEtW0f0M8Ti1LE6JMNfykH3 VNTUFSWTwvdGQ+OV04xc22Z3Ct PuorHdi1KGFjLSG9vMF1dB0s HDVmVHloz0P6hAC0B4VdljVaqf 3hy8wnMARuVMeuD32tdKTnw0J3 ZAHzeWV3KGHayAyuCxDwlD68 Oyc+SBQmgCfbr3QaAavtc8mto9 rbzCa7HxzsYOApyvPsbQzwEIV4 b3WgAb6fBAGdvZR2rMJ8uF6b FsIwSsF4DQifQ343HqSwpRZmQa amB30rH5JqoLW+FQQhAli2PYUh kCjsRV9wJ8TjVFBfjtjvoBGn vGbzHG0bZXAnuwwzFTXvsF4wCH VcI8s5WyWlXsV4BEfeK0VeEGCu swpwWu92nP9rNjVySlS1IQym T7IkvgM5UNHcvFNeNWzuJPO8W4 8ft0Z8QUJbUFGgJSX3wPO6aT9e bGlnbjogbGVmdDsgdmVydGlj CCgkKBetS276KLSmuCqpNxRwOX luZyBEYXRlOiAgMDgvMTEvMjAy MzwvdGQ+WRBfZTT9fQapUXCg cSRtLZbsYn9goLlwbGobBS0pIO AzundeTWYctM8eUWKljWQcjYkg KD8wLRWayzwrf858IaMyNMJ0 TVZgqOSyW0LrkF9mCaOeFOJsAY GhN5DcmDAySTrgJ317XIxuPkU3 FZShxqFhS4RhGXHqhCkbStA8 v3A4Nd1Yx9DqmllgP2WskVOyEa ZqQtnhHVj3P6BbXfzvqJD+PC90 QAMwYV74IBe4OAT5lXqgSUfk IRUvN5JggV4lEdSgTOQeYSHpJo c+PHRhYmxlIHdpZHRoPScxMDAl CkKuzEciEG9mGx2pOHWrMQZx jGuqxRCcFuJjd9unWUIeKAjqXT 7ehSwmG6IwtSC5TBRlg0k2Iz78 B46kG3XzwLA+RHMyxGA4pCB4 wW8sJdJsLeS9RXzlK074BmAreP PfRcazg7ber9cpfEd9HeN7FGUj kvAuqAkiDFL4g0VhHb31Y60j IHdpZHRoPSIxNSUiIHZhbGlnbj 7xgX6xAt3+LNUugKB9oZU4oK7o PuQqQeK1XUrgR559MqIlcERa Fikra2ygo2wvxUd7FmIpICNixt TloYomTWC1x3PsHr18V3QkoVej r2XkTmi8ux58aFJkv0N0qOF5 T6YfKIRcctreyUCukFipBW6zXD DgrjhoNXYyuZ6lZWKiJ7u6PgGc GsG4YVbfE9HulzL4UJArzPPk IBOmtNRSjO0occrcp0weuikmQp GjFOZuSKt7DFr6QFKrrRqcCgPp GKZ3IpD4XIS4gBVxdS6cjMrk tkxspA0lFdg+AVY9oWHkiSCADJ 1lOjwvdGQ+TTDgYGS4kCopEGoy QWNopQ3sIAXhP2q1AiStCmE3 VRcoD8AtkuN2WNLhhNIxUOHzgP PRcQ4gznpph2heisdkDeHoXYHf YBf1TTb6AYGjtRncXcHlZYT1 UnE2NAT1tYQjjC3hvBvpsmqteK 9wOyc+FrrnlEfmAVZ8XTr1J7Ok Jvt4BYIebXxhXL4evEDgNWql Ej2siCbrcJvxDS8zYGVqpsnlh9 54VeUln0nmIJZpsFNbNFuzWVR4 D50ef2M3CCUdMLUiODH4wNA0 sV1nkMmymbgcwSRyvPvksuOzkA mvWJpsIJhxI812MLDieWtjNrDz UEt2I9JrXht0CSZodIvnWM7k sCSaXHbxHg5pzGwvnYuaUS9fBS Hiazyse523QiZan6ooBFAltAUu FHezDXQ0Y10ih5K1WKOdBYTp XYT3iGG0qN2naZocndzpxWVmiL zdpuEiwRfhSMllMSjtV149GXSe tOiyRjUbrBt1E6CqXlx8RIKe vWtnXW1tgITjHGevVn7avObyuU puUY8eXPHfxonaw881CsImu8mu YQMdkSZuBRsiTFI7D04tv8O9 MCBfIQJzHQT7nBX1dG2clIcazs ogbGVmdDsgdmVydGljYWwtYWxp F134ORLedXkaXlVteEmsxiSf NOpvWYx6R0EyVykfzAE+PC90YW NxYD09lUDdvEUdn9tuxFq4YzFx BLAmMOJ0cMqdWUibe5FyWFTp M89kfLFzf4N3AWFklTegxBZxUb AusVA2hG3cTJrpfrijs8hjgipr Ngkns2mzva99zH11B81mFHou QLAiTHPeKDYlMSFgvAcktr2ppQ 9wIi8+NMBvgHQ2nPE8lM9gACQm NjS2BLtyE312MmHiwNDwFvoi t3nbq2eccWq3EmO3PNPldxHpsX bvTWM8b2NwFy75A36wNYlsANNq RRVfZCRlQVHhmRcxru0ouJ1q Ii8+HNJiwRO0qVX1zQ0dKnZzAx Y4RGzhF070YtMafBEqPesyB68v A0VjhZR+AJLpVsf6PZWszIbe FA7itKEgYXmfMs6aLJX2PqBtIp KnBGiaL5OpCQRholbqtijfvLH2 YFMiCXBkkL02Rd7luMagGOVl dBATuV1zzxbkd2ummspiHeLdTJ RyUMd5JGo4LLCswMlsFhXyUYM3 TkW7BRX4oCQmiN2mpOiammcv yV9sW0PaZULmlfpkSt45eA9eGx LuCjU6DNbuDuo+W8pQJPHHGhla I3FSWNLPWPtFHwHORS95ID10 uIIih9D9sQO6B4LkUCQqygylrd pfmBD1OEZlFYNkcI96rRRpZWkc Aj9oz6F9f414AGAwQPVpdP68 Bf0hgMvtPCQikCYJkM8sggyih4 binwpuCpHnZLSfDRm0UHr1NLAj oNbsDuRjJJT5BrS2MSO3wDJh kO0ybCickybvwT1sEoa+MDkvMj GoTLi5FFellET+IZSlKZK0iHzc ZBccHIMkcO3bNSFoX5e5AdIp DnX9URjqN3ZaQLUwrxhpEz36dG 3hCmUvTfT5GBdzI5SvbdG1QNNt xVWnSQeqKZZ0E25qm9W0KKEy JTYmQFY4gJQ3sD3dnZnloqholI ZbfLdfujFfhBqnBTzxZFxsX190 LDOykNqcKqF1QXcxFECuAY70 NY62aGQuv9P1yYN6Y6AvOCBzyy qiywuciEQ3CRFeLYLylP75fNKd GUiqWx9xw3U8a849KWCbSRPc aO45Ow6euSuwOVYpcWJYlY8urv hil7tdvwzgQpNdMDByUVe3PPk6 VQIgsGtdIqDtCTU4ZeQ9QEW0 aTJljW2chVplbuwwtE0oLbq+TU FMRTwvdGQ+TYAcLTP0wHtwPSdw NMImyJ9hVMGpV3b9KoGzEnQ5 XUznA8WgBTMksdugDm09uR0bLh XwLqC8RRmrR7FvasJ3MJIaeUKo AXsrDMW4U47sn1W9EIKtBUHg ELF9iGO4xN4qeKagitkcdGQyeY ryudNixUdnAWxwJAqtM851TCPx oRsrZt6IFS82SU80A4IuStgj dGFibGU+PHRhYmxlIHdpZHRoPS mwPSAiVdOheZryIU7gGg4kCZLz VDQppLxvxJJvKoPeh6ezARUx ZJdsIY3zrHucY0OvvNU1DVKra1 s4Li00R50xM3SvpFB+PGNvbCB3 aUF2uH6uOnAuVbB4AUqqK795 JaIdyCMpVtapd3zau3aunPh1Ba CaPAFfnvTdcBdiPNP2r6NzCl86 C51wELejMNUrSVZvBGVgETYc nCllds8lsZ4uSw2+XOPbdTF2fO N3vQ6pGjKdLnF2VCrwH970BsEl cYRvJggcR51gA5GxiZW+PHRy Gqc8OPQxuGbaXR4zzNLaPEjaRf 1rOLP7QvMeVqJzJOlgK8CaMIAe vduobghrnIZ4SJDgYWMjyI84 Zi1hoLlaXw3lKCRtDVA5MGYbdJ TtF5BqpU1qHfQwUULtZYUiD3Eg fAFrXIrfC153YAwmHcI4QXNw xaUmE5JjLVTwjGlmFaU8v5S4Mj 9NaRsuhXJgQG0uPfXnIXo2R3Mf Hpc6AYNwrSoqWB3tpWWeKDun Gx3awUgqzMjxFD4jAKGotnhpy3 10DfNlu6gyALGnbLCrHIqvEFG8 T76kz8L7BXQtIPSyHPF1xIU2 cK1shIyroukksULhpMpcdkKbnD giCNcqWYjjI476DOTibJetOeVA Wqg4S3NkWqj8GSYykBfrTU2f eAGkLBwqJp9gcHosbMbhEB5eFZ Rhhlboh470TeFud6drJHPrdVWf VPlvDOP0A08wo9R5DGWuDQAr LOG0tAI6tP7lxFhtfwwqtBXdsT gbmhVvuAkaZJlpTGooE458UOPe sGgnQp5FHvk8A5ExFrn0DNUc tYoyGD9obMKkBZgcGh1cjJbavC fyQT1hAUCgcsqge425OdQym7yu CERfeVZqTEcxMOC6F07nl1W2 QDBcUXGfQWL9jGX4sM6cbEpxlj ogbGVmdDsgdmVydGljYWwtYWxp M923MBHymRafTfHztWRaKmbu dGQ+VA39ys28G1PpXqadPma7MG HaJVP9hSF3oM4eTUGzSEjxm0Z6 sBH9O5LhbhOhvw3vy6tiALJe ZTo (more content not included)... Normal [facility] .Auto Diff 04-18-2023 Auto [place] % 11 % Normal -12 [facility] Comment on above: Performed By: #### 1 [id number], [id number], [id number] ####[facility] (DEFAULT)[address] [place] [address] 99425 Baso Abs# 0.1 x10 Normal 0.0-0.2 [facility] Comment on above: Performed By: #### 1 [id number], [id number], [id number] ####[facility] (DEFAULT)[address] [place] [address] 86531 Basophils/100 WBC (Bld) 0.7 % Normal 0.2-2.0 [facility] Comment on above: Performed By: #### 1 [id number], [id number], [id number] ####[facility] (DEFAULT)[address] [place] [address] 66638 Eos Abs# 0.1 x10 Normal 0.0-0.4 [facility] Comment on above: Performed By: #### 1 [id number], [id number], [id number] ####[facility] (DEFAULT)[address] [place] [address] 56839 Eosinophils/100 WBC (Bld) 1.1 % Normal 0.9-4.0 [facility] Comment on above: Performed By: #### 1 [id number], [id number], [id number] ####[facility] (DEFAULT)[address] [place] [address] 23275 Lymph Abs# 1.7 x10 Normal 1.3-2.9 [facility] Comment on above: Performed By: #### 1 [id number], [id number], [id number] ####[facility] (DEFAULT)[address] [place] [address] 67387 Lymphocytes/100 WBC (Bld) 20 % Normal 14-48 [facility] Comment on above: Performed By: #### 1 [id number], [id number], [id number] ####[facility] (DEFAULT)[address] [place] [address] 48571 [place] Abs# 0.9 x10 High 0.0-0.8 [facility] Comment on above: Performed By: #### 1 [id number], [id number], [id number] ####[facility] (DEFAULT)[address] [place] [address] 78368 Neut Abs# 5.5 x10 Normal 1.5-9.2 [facility] Comment on above: Performed By: #### 1 [id number], [id number], [id number] ####[facility] (DEFAULT)[address] [place] [address] 80299 Neutrophils/100 WBC (Bld) 67 % Normal 44-88 [facility] Comment on above: Performed By: #### 1 [id number], [id number], [id number] ####[facility] (DEFAULT)[address] [place] [address]00[facility] Standardon 04-18-2023 eGFR Non AA 56 mL/min/1.73m2 Invalid Interpretation Code [facility] Comment on above: Performed By: #### 1 [id number], [id number], [id number] ####[facility] (DEFAULT)[address] [place] [address] 37189 eGFR AA >60 Invalid Interpretation Code [facility] Comment on above: Performed By: #### 1 [id number], [id number], [id number] ####[facility] (DEFAULT)[address] [place] [address] 90992 Anion gap [Moles/Vol] 9.8 mmol/L Normal 5.0-19.0 [facility] Comment on above: Performed By: #### 1 [id number], [id number], [id number] ####[facility] (DEFAULT)[address] [place] [address] 55652 Calcium [Mass/Vol] 9.1 mg/dL Normal 8.9-10.3 [facility] Comment on above: Performed By: #### 1 [id number], [id number], [id number] ####[facility] (DEFAULT)[address] [place] [address] 63224 Chloride [Moles/Vol] 111 mmol/L Normal 101-111 [facility] Comment on above: Performed By: #### 1 [id number], [id number], [id number] ####[facility] (DEFAULT)[address] [place] [address] 63013 CO2 [Moles/Vol] 25 mmol/L Normal 21-32 [facility] Comment on above: Performed By: #### 1 [id number], [id number], [id number] ####[facility] (DEFAULT)[address] [place] [address] 51518 Creatinine [Mass/Vol] 1.28 mg/dL Normal 0.90-1.30 [facility] Comment on above: Performed By: #### 1 [id number], [id number], [id number] ####[facility] (DEFAULT)[address] [place] [address] 29499 Glucose [Mass/Vol] 112.0 mg/dL Normal 74.0-118.0 [facility] Comment on above: Performed By: #### 1 [id number], [id number], [id number] ####[facility] (DEFAULT)[address] [place] [address] 36038 Osmolality 288 mOsm/L Invalid Interpretation Code [facility] Comment on above: Performed By: #### 1 [id number], [id number], [id number] ####[facility] (DEFAULT)[address] [place] [address] 22419 Potassium [Moles/Vol] 4.8 mmol/L Normal 3.6-5.1 [facility] Comment on above: Performed By: #### 1 [id number], [id number], [id number] ####[facility] (DEFAULT)[address] [place] [address] 62477 Sodium [Moles/Vol] 141.0 mmol/L Normal 136.0-144 . 0 [facility] Comment on above: Performed By: #### 1 [id number], [id number], [id number] ####[facility] (DEFAULT)[address] [place] [address] 53540 Urea nitrogen [Mass/Vol] 31 mg/dL High 8-26 [facility] Comment on above: Performed By: #### 1 [id number], [id number], [id number] ####[facility] (DEFAULT)[address] [place] [address] 64396 Urea nitrogen/Creatinine [Mass ratio] 24.2 mg/mg High 4.6-16.2 [facility] Comment on above: Performed By: #### 1 [id number], [id number], [id number] ####[facility] (DEFAULT)[address] [place] [address] CBC w/ Auto Diffon 3 Erythrocyte distribution width (RBC) [Ratio] 13.2 % Normal 11.5-15.0 [facility] Comment on above: Performed By: #### 1 [id number], [id number], 5401602 ####[facility] (DEFAULT)[address] [place] [address] 09470 Hematocrit (Bld) [Volume fraction] 36.4 % Normal 34.8-51.9 [facility] Comment on above: Performed By: #### 1 [id number], [id number], [id number] ####[facility] (DEFAULT)[address] [place] [address] 58369 Hemoglobin (Bld) [Mass/Vol] 12.5 g/dL Normal 11.8-17.7 [facility] Comment on above: Performed By: #### 1 [id number], [id number], [id number] ####[facility] (DEFAULT)[address] [place] [address] 89322 Man Diff? Auto Invalid Interpretation Code [facility] Comment on above: Performed By: #### 1 [id number], [id number], [id number] ####[facility] (DEFAULT)[address] [place] [address] 95715 MCH (RBC) [Entitic mass] 31 pg Normal 24-34 [facility] Comment on above: Performed By: #### 1 [id number], [id number], [id number] ####[facility] (DEFAULT)[address] [place] [address] 81016 MCHC (RBC) [Mass/Vol] 34 g/dL Normal 26-37 [facility] Comment on above: Performed By: #### 1 [id number], [id number], 7763609 ####[facility] (DEFAULT)[address] [place] [address] MCV (RBC) [Entitic vol] 90 fL Normal 81-100 [facility] Comment on above: Performed By: #### 1 [id number], [id number], [id number] ####[facility] (DEFAULT)[address] [place] [address] Platelet 228 x10 Normal 138-427 [facility] Comment on above: Performed By: #### 1 [id number], [id number], [id number] ####[facility] (DEFAULT)[address] [place] [address] Platelet mean volume (Bld) [Entitic vol] 6.8 fL Normal 6.3-10.2 [facility] Comment on above: Performed By: #### 1 [id number], [id number], [id number] ####[facility] (DEFAULT)[address] [place] [address] 67294 RBC 4.04 x10 Normal 3.70-5.30 [facility] Comment on above: Performed By: #### 1 [id number], [id number], [id number] ####[facility] (DEFAULT)[address] [place] [address] WBC 8.2 x10 Normal 3.5-10.5 [facility] Comment on above: Performed By: #### 1 [id number], [id number], [id number] ####[facility] (DEFAULT)[address] [place] [address] LIPID PROFILEon 01-13-2023 CHOL-HDL RATIO NORM SEE BELOW Normal [facility] Comment on above: Result Comment: 3.3 - 4.4 LOW RISK 4.4 - 7.1 AVERAGE RISK 7.1 - 11.0 MODERATE RISK >11.0 HIGH RISK Performed By: #### T SH, LIPID #### [facility] [address] [place] [address] Dr. Manav Burkett Cholesterol [Mass/Vol] 99 mg/dL Normal <=200 [facility] Comment on above: Performed By: #### T SH, LIPID #### [facility] [address] [place] [address] Dr. Manav Burkett Cholesterol in HDL [Mass/Vol] 35 mg/dL Critically low 40-60 [facility] Comment on above: Performed By: #### T SH, LIPID #### [facility] [address] [place] [address] Dr. Manav Burkett Cholesterol in LDL [Mass/Vol] 53.4 mg/dL Normal [facility] Comment on above: Performed By: #### T SH, LIPID #### [facility] [address] [place] [address] Dr. Manav Burkett Cholesterol.total/Audrey sterol in HDL [Mass ratio] 2.8 {ratio} Normal [facility] Comment on above: Performed By: #### T SH, LIPID #### [facility] [address] [place] [address] Dr. Manav Burkett HDL NORMAL > or = 60 mg/dl - LO W CARDIOVASCULAR RISK <40 mg/dl - HIGH CARDIOVASCULAR RISK Normal [facility] Comment on above: Performed By: #### T SH, LIPID #### [facility] [address] [place] [address] Dr. Manav Burkett LDL CALC NORMAL SEE BELOW Normal [facility] Comment on above: Result Comment: <100 mg/dl OPTIMAL 100 - 129 mg/dl NEAR OR ABOVE OPTIMAL 130 - 159 mg/dl BORDERLINE HIGH 160 - 189 mg/dl HIGH >190 mg/dl VERY HIGH Performed By: #### T SH, LIPID #### [facility] [address] [place] [address] Dr. Manav Burkett Triglyceride [Mass/Vol] 53 mg/dL Normal <=150 T [facility] Comment on above: Performed By: #### T SH, LIPID #### [facility] [address], [place] [address] Dr. Manav Burkett VLDL CALC 10.6 mg/dL Normal [facility] Comment on above: Performed By: #### T SH, LIPID #### [facility] [address], [place] [address] Dr. Manav Burkett TSHon 01-13-2023 TSH 10.864 uIU/mL Critically high 0.358-3.74 0 [facility] Comment on above: Performed By: #### T SH, LIPID #### [facility] [address], [place] [address] Dr. Manav Burkett Office Visit (Cardiology)on 01-10-2023 Follow-up visit Diagnoses/Problems Assessed Atrial flutter (427.32) (I48.92) Hyperlipidemia (272.4) (E78.5) Hypertension (401.9) (I10) Hypothyroidism (244.9) (E03.9) High risk medication use (V58.69) (Z79.899) Observed sleep apnea (780.57) (G47.30) Type 1 dissection of ascending aorta (441.01) (I71.010) Class 2 obesity with body mass index (BMI) of 39.0 to 39.9 in adult (278.00,V85.39) (E66.9,Z68.39) Orders Atrial flutter Renew: Eliquis 5 MG Oral Tablet; take 1 tablet by mouth twice a day Class 2 obesity with body mass index (BMI) of 39.0 to 39.9 in adult Healthy Weight Tips; Status:Complete - Retrospective Authorization; Done: 10Jan2023 Some eating tips that can help you lose weight.; Status:Complete - Retrospective Authorization; Done: 10Jan2023 Hyperlipidemia Renew: Atorvastatin Calcium 40 MG Oral Tablet; TAKE 1 TABLET DAILY Hyperlipidemia, Hypothyroidism Lipid Panel; Status:Active - Retrospective Authorization; Requested for:10Jan2023; TSH - Thyroid Stimulating Hormone, Serum; Status:Active - Retrospective Authorization; Requested for:10Jan2023; Patient Instructions Please bring all medicines, vitamins, and herbal supplements with you when you come to the office. Prescriptions will not be filled unless you are compliant with your follow up appointments or have a follow up appointment scheduled as per instruction of your physician. Refills should be requested at the time of your visit. Fall prevention education given Chief Complaint PAIGE MONTIEL is being seen for a 6 month follow-up of. Patient is in the office for follow-up for the problems noted below. Since he was last seen in the office he had a visit to the hospital in June 2022 for chest pain. 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 During that visit his TSH was around 18 and unfortunately was never addressed. He is on thyroid supplement and scheduled to see his PCP next week. Has not had lipid profile since last year. This was ordered as well. He had minor issues with her lower back limiting his physical activities and as a result his weight has increased. He does have sleep apnea on CPAP machine and has been compliant. He has chronic for after failing ablation, his rhythm appears regular on examination today but that is because he has 4:1 AV conduction. His cardiac examination otherwise was unremarkable his lungs sounded normal he has no lower extremity edema. He has no side effect of current medications which will be renewed. Assessment/recommendations : 1?permanent atrial flutter that remains asymptomatic status post radiofrequency ablation.. The patient will be managed with rate control and anticoagulation due to lack of symptoms, Nuclear stress test at [facility] 2018 was normal, echocardiogram recently showed normal ejection fraction in 2020 2?high-risk medication with anticoagulation with no bleeding complications, CBC is ordered 3?hypertension on medical therapy under control, 4?sleep apnea on CPAP machine 5?hyperlipidemia on statin therapy, due for lipid profile which is ordered 6?morbid obesity, more weight control was recommended emphasizing low calorie diet. 7?hypothyroidism on replacement therapy followed by PCP, TSH is ordered since his TSH in June 2022 was elevated. 8?status post type I ascending aortic dissection status post surgical repair in [place], most recent CT scan was June 2022 with no progression or changes Surgical History Problems History of Aortic valve repair History of Complete colonoscopy History of Knee replacement History of Lower back surgery Current Meds Medication NameInstruction amLODIPine Besylate 10 MG Oral TabletTAKE 1 TABLET DAILY. Atorvastatin Calcium 40 MG Oral TabletTAKE 1 TABLET DAILY. Carvedilol 12.5 MG Oral Tablettake 1/2 tablet in the morning, and one whole tablet in the evening Eliquis 5 MG Oral Tablettake 1 tablet by mouth twice a day Ezetimibe 10 MG Oral TabletTAKE 1 TABLET DAILY. Levothyroxine Sodium 150 MCG Oral TabletTAKE 1 TABLET DAILY. Olmesartan Medoxomil 40 MG Oral TabletTAKE 1 TABLET DAILY. Pantoprazole Sodium 40 MG Oral Tablet Delayed ReleaseTAKE 1 TABLET DAILY. Potassium Chloride ER 20 MEQ Oral Tablet Extended ReleaseTake 1 tablet twice daily Tamsulosin HCl - 0.4 MG Oral CapsuleTAKE 1 CAPSULE Daily tiZANidine HCl - 4 MG Oral TabletTAKE 1 TABLET AT BEDTIME. Triamterene-HCTZ 37.5-25 MG Oral TabletTAKE 1 TABLET DAILY. Patient did not bring medication list or bottles. Updated verbally with patient Allergies Medication No Known Drug Allergies Recorded By: Eneida Rosenthal; 12/17/2021 10:04:44 AM Social History Problems Alcohol ingestion (V69.8) (Z78.9) ON THE WEEKENDS Caffeine use (V49.89) (Z78.9) 4 CUPS OF COFFEE DAILY Never a smoker No illicit drug use Review of Systems Constitutional: not feeling tired. Cardiovascular: no intermittent leg claudication and as noted in H (more content not included)... Normal [employer] Tobacco Screening.on 023 Adult depression screening assessment No [facility] [employer] DO Work Phone: Fall risk assessment b) One or more fall s in the last year [facility] [employer] DO Work Phone: Tobacco use status CP b) No M [facility] [employer] DO Work Phone: Basic Metabolic Panelon 10- Anion gap [Moles/Vol] 9.6 mmol/L Normal 6.0-15.0 [facility] Comment on above: Performed By: #### S CAN CBC, PT, BNP, HS TROP, PTT, LIPASE, BMP, HEPATIC #### [facility] [address] Calcium [Mass/Vol] 9.3 mg/dL Normal 8.2-10.2 [facility] Comment on above: Performed By: #### S CAN CBC, PT, BNP, HS TROP, PTT, LIPASE, BMP, HEPATIC #### [facility] [address] Chloride [Moles/Vol] 103 mmol/L Normal 95-114 [facility] Comment on above: Performed By: #### S CAN CBC, PT, BNP, HS TROP, PTT, LIPASE, BMP, HEPATIC #### [facility] [address] CO2 [Moles/Vol] 27.6 mmol/L Normal 22.0-30.0 [facility] Comment on above: Performed By: #### S CAN CBC, PT, BNP, HS TROP, PTT, LIPASE, BMP, HEPATIC #### [facility] [address] Creatinine [Mass/Vol] 1.05 mg/dL Normal 0.64-1.27 [facility] Comment on above: Performed By: #### S CAN CBC, PT, BNP, HS TROP, PTT, LIPASE, BMP, HEPATIC #### [facility] [address] Creatinine Clr Calc Pharmacy 104.51 [facility] Comment on above: Performed By: #### S CAN CBC, PT, BNP, HS TROP, PTT, LIPASE, BMP, HEPATIC #### [facility] [address] Estimated GFR ( [place] > 60 [facility] Comment on above: Result Comment: GFR estimated reference range: According to KDOQI guidelines, <60 ml/min/1.73m2 is sufficient to diagnose a patient with chronic kidney disease. Performed By: #### S CAN CBC, PT, BNP, HS TROP, PTT, LIPASE, BMP, HEPATIC #### [facility] [address] Estimated GFR (Non- Am > 60 [facility] Comment on above: Performed By: #### S CAN CBC, PT, BNP, HS TROP, PTT, LIPASE, BMP, HEPATIC #### [facility] [address] Glucose [Mass/Vol] 98 mg/dL Normal 70-100 [facility] Comment on above: Result Comment: [place] om Glucose Reference Range is dependent on time and content of last meal. Glucose of more than 200 mg/dL in a nonstressed, ambulatory subject supports the diagnosis of Diabetes Mellitus. ADA recommended reference range Performed By: #### S CAN CBC, PT, BNP, HS TROP, PTT, LIPASE, BMP, HEPATIC #### [facility] [address] Potassium [Moles/Vol] 4.2 mmol/L Normal 3.5-5.1 [facility] Comment on above: Performed By: #### S CAN CBC, PT, BNP, HS TROP, PTT, LIPASE, BMP, HEPATIC #### [facility] [address] Sodium [Moles/Vol] 136 mmol/L Normal 136-146 [facility] Comment on above: Performed By: #### S CAN CBC, PT, BNP, HS TROP, PTT, LIPASE, BMP, HEPATIC #### [facility] [address] Urea nitrogen [Mass/Vol] 21 mg/dL Normal 9-23 [facility] Comment on above: Performed By: #### S CAN CBC, PT, BNP, HS TROP, PTT, LIPASE, BMP, HEPATIC #### [address] Basophils Auto (Bld) [#/Vol] Ordered By: Vivek Muñiz on 06-26-2022 Basophils (Bld) [#/Vol] 0.1 10*3/uL 0.0-0.2 [facility] Basophils/100 WBC Auto (Bld) Ordered By: Vivek Muñiz on 06-26-2022 Basophils/100 WBC (Bld) 0.7 % . [facility] Creatine Kinaseon 06-26-2022 CK [Catalytic activity/Vol] 57 U/L Normal 22- [facility] Comment on above: Performed By: #### S CAN CBC, PT, BNP, HS TROP, PTT, LIPASE, BMP, HEPATIC #### [facility] [address] CK [Catalytic activity/Vol] 68 U/L Normal 22- [facility] Comment on above: Performed By: #### S CAN CBC, PT, BNP, HS TROP, PTT, LIPASE, BMP, HEPATIC #### [facility] [address] Creatine kinase [Enzymatic a ctivity/volume] in Serum or PlasmaOrdered By: Vivek Muñiz on 06-26-2022 CK [Catalytic activity/Vol] 57 U/L [facility] Creatinine Kinase MBon 06-26 CK.MB [Mass/Vol] 3.2 ng/mL Normal 0.6-6.3 [facility] Comment on above: Performed By: #### S CAN CBC, PT, BNP, HS TROP, PTT, LIPASE, BMP, HEPATIC #### [facility] [address] CKMB Relative Index 5.6 % High 0.00-2.50 [facility] Comment on above: Performed By: #### S CAN CBC, PT, BNP, HS TROP, PTT, LIPASE, BMP, HEPATIC #### [facility] [address] CK.MB [Mass/Vol] 3.9 ng/mL Normal 0.6-6.3 [facility] Comment on above: Performed By: #### S CAN CBC, PT, BNP, HS TROP, PTT, LIPASE, BMP, HEPATIC #### [facility] [address] [place] [address] [place] CKMB Relative Index 5.7 % High 0.00-2.50 [facility] Comment on above: Performed By: #### S CAN CBC, PT, BNP, HS TROP, PTT, LIPASE, BMP, HEPATIC #### [facility] [address] [place] [address] [place] Creatinine and Glomerular fi ltration rate.predicted panel (S/P/Bld)Ordered By: Vivek Muñiz on 06-26-2022 Creatinine [Mass/Vol] 1.05 mg/dL 0.64-1.27 [facility] Eosinophils Auto (Bld) [#/Vo l]Ordered By: Vivek Muñiz on 06-26-2022 Eosinophils (Bld) [#/Vol] 0.1 10*3/uL 0.0-0.45 [facility] Eosinophils/100 WBC Auto (Bl d)Ordered By: Vivek Muñiz on 06-26-2022 Eosinophils/100 WBC (Bld) 1.3 % . [facility] Erythrocyte distribution wid th Auto (RBC) [Ratio]Ordered By: Vivek Muñiz on 06-26-2022 Erythrocyte distribution width (RBC) [Ratio] 13.9 % 12.0-14.8 [facility] Estimated glomerular filtrat ion rate (GFR) non- AmericanOrdered By: Vivek Muñiz on 06-26-2022 GFR/1.73 sq M.predicted among non-blacks MDRD (S/P/Bld) [Vol rate/Area] > 60 mL/Min [facility] Free T4 (Free Thyroxine)on Free T4 [Mass/Vol] 0.84 ng/dL Normal 0.61-1.12 [facility] Comment on above: Performed By: #### S CAN CBC, PT, BNP, HS TROP, PTT, LIPASE, BMP, HEPATIC #### [facility] [address] Hematocrit Auto (Bld) [Volum e fraction]Ordered By: Vivek Muñiz on 06-26-2022 Hematocrit (Bld) [Volume fraction] 40.3 % 38.8-50.0 [facility] Hemoglobin [Mass/volume] in BloodOrdered By: Vivek Muñiz on 06-26-2022 Hemoglobin (Bld) [Mass/Vol] 13.8 g/dL 13.0-17.0 [facility] - Chemistry and C hemistry - challengeOrdered By: Vivek Muñiz on 06-26-2022 Magnesium [Mass/Vol] 1.7 mg/dL 1.6-2.6 [facility] - Hematology and Cell countsOrdered By: Vivek Muñiz on 06-26-2022 Nucleated RBC/100 WBC (Bld) [Ratio] 0.1 % 0-0.5 [facility] Leukocytes [#/volume] in Blo od by Automated countOrdered By: Vivek Muñiz on 06-26-2022 WBC (Bld) [#/Vol] 11.1 10*3/uL 4.5-11.0 [facility] Lymphocytes Auto (Bld) [#/Vo l]Ordered By: Vivek Muñiz on 06-26-2022 Lymphocytes (Bld) [#/Vol] 3.0 10*3/uL 1.00-4.8 [facility] Lymphocytes/100 WBC Auto (Bl d)Ordered By: Vivek Muñiz on 06-26-2022 Lymphocytes/100 WBC (Bld) 26.5 % . [facility] MCH Auto (RBC) [Entitic mass ]Ordered By: Vivek Muñiz on 06-26-2022 MCH (RBC) [Entitic mass] 30.8 pg 27.5-35.2 [facility] MCHC Auto (RBC) [Mass/Vol]Or dered By: Vivek Muñiz on 06-26-2022 MCHC (RBC) [Mass/Vol] 34.3 g/dL 32.5-35.6 [facility] MCV Auto (RBC) [Entitic vol] Ordered By: Vivek Muñiz on 06-26-2022 MCV (RBC) [Entitic vol] 89.9 fL 83.5-101 [facility] Magnesiumon 06-26-2022 Magnesium [Mass/Vol] 1.7 mg/dL Normal 1.6-2.6 [facility] Comment on above: Performed By: #### S CAN CBC, PT, BNP, HS TROP, PTT, LIPASE, BMP, HEPATIC #### [facility] [address] [place] [address] Monocytes Auto (Bld) [#/Vol] Ordered By: Vivek Muñiz on 06-26-2022 Monocytes (Bld) [#/Vol] 1.6 10*3/uL 0.0-0.8 [facility] Monocytes/100 WBC Auto (Bld) Ordered By: Vivek Muñiz on 06-26-2022 Monocytes/100 WBC (Bld) 14.1 % . [facility] Neutrophils Auto (Bld) [#/Vo l]Ordered By: Vivek Muñiz on 06-26-2022 Neutrophils (Bld) [#/Vol] 6.4 10*3/uL 1.8-7.7 [facility] Neutrophils/100 WBC Auto (Bl d)Ordered By: Vivek Muñiz on 06-26-2022 Neutrophils/100 WBC (Bld) 57.4 % . [facility] No Panel InformationOrdered By: Vivek Muñiz on 06-26-2022 Estimated GFR () > 60 mL/Min [facility] Comment on above: GFR estimated refere nce range: According to KDOQI guidelines, <60 ml/min/1.73m2 is sufficient to diagnose a patient with chronic kidney disease. Pharmacy Creatinine Clearance (Chem 104.51 [facility] Platelet Estimate Normal Normal [facility] Platelet Morphology Comment Normal Normal [facility] Platelet mean volume Auto (B ld) [Entitic vol]Ordered By: Vivek Muñiz on 06-26-2022 Platelet mean volume (Bld) [Entitic vol] 6.8 fL 6.6-10.1 [facility] Platelets Auto (Bld) [#/Vol] Ordered By: Vivek Muñiz on 06-26-2022 Platelets (Bld) [#/Vol] 281 10*3/uL 150-450 [facility] RBC Auto (Bld) [#/Vol]Ordere d By: Vivek Muñiz on 06-26-2022 RBC (Bld) [#/Vol] 4.48 10*6/uL 3.90-5.60 [facility] RBC morphologyOrdered By: Jenny Muñiz on 06-26-2022 RBC morphology finding Nom (Bld) Normal [facility] Scan and CBCon 06-26-2022 Basophils (Bld) [#/Vol] 0.1 10*3/uL Normal 0.0-0.2 [facility] Comment on above: Performed By: #### S CAN CBC, PT, BNP, HS TROP, PTT, LIPASE, BMP, HEPATIC #### [facility] [address] Basophils/100 WBC (Bld) 0.7 % Normal . [facility] Comment on above: Performed By: #### S CAN CBC, PT, BNP, HS TROP, PTT, LIPASE, BMP, HEPATIC #### [facility] [address] Eosinophils (Bld) [#/Vol] 0.1 10*3/uL Normal 0.0-0.45 [facility] Comment on above: Performed By: #### S CAN CBC, PT, BNP, HS TROP, PTT, LIPASE, BMP, HEPATIC #### [address] Eosinophils/100 WBC (Bld) 1.3 % Normal . [facility] Comment on above: Performed By: #### S CAN CBC, PT, BNP, HS TROP, PTT, LIPASE, BMP, HEPATIC #### [address] Erythrocyte distribution width (RBC) [Ratio] 13.9 % Normal 12.0-14.8 [facility] Comment on above: Performed By: #### S CAN CBC, PT, BNP, HS TROP, PTT, LIPASE, BMP, HEPATIC #### [address] Hematocrit (Bld) [Volume fraction] 40.3 % Normal 38.8-50.0 [facility] Comment on above: Performed By: #### S CAN CBC, PT, BNP, HS TROP, PTT, LIPASE, BMP, HEPATIC #### [address] Hemoglobin (Bld) [Mass/Vol] 13.8 g/dL Normal 13.0-17.0 [facility] Comment on above: Performed By: #### S CAN CBC, PT, BNP, HS TROP, PTT, LIPASE, BMP, HEPATIC #### [address] Lymphocytes (Bld) [#/Vol] 3.0 10*3/uL Normal 1.00-4.8 [facility] Comment on above: Performed By: #### S CAN CBC, PT, BNP, HS TROP, PTT, LIPASE, BMP, HEPATIC #### [address] Lymphocytes/100 WBC (Bld) 26.5 % Normal . [facility] Comment on above: Performed By: #### S CAN CBC, PT, BNP, HS TROP, PTT, LIPASE, BMP, HEPATIC #### [address] MCH (RBC) [Entitic mass] 30.8 pg Normal 27.5-35.2 [facility] Comment on above: Performed By: #### S CAN CBC, PT, BNP, HS TROP, PTT, LIPASE, BMP, HEPATIC #### [facility] [address] MCV (RBC) [Entitic vol] 89.9 fL Normal 83.5-101 [facility] Comment on above: Performed By: #### S CAN CBC, PT, BNP, HS TROP, PTT, LIPASE, BMP, HEPATIC #### [address] Mean Corpuscular HGB Conc 34.3 g/dL Normal 32.5-35.6 [facility] Comment on above: Performed By: #### S CAN CBC, PT, BNP, HS TROP, PTT, LIPASE, BMP, HEPATIC #### [address] Monocytes (Bld) [#/Vol] 1.6 10*3/uL High 0.0-0.8 [facility] Comment on above: Performed By: #### S CAN CBC, PT, BNP, HS TROP, PTT, LIPASE, BMP, HEPATIC #### [address] Monocytes/100 WBC (Bld) 14.1 % Normal . [facility] Comment on above: Performed By: #### S CAN CBC, PT, BNP, HS TROP, PTT, LIPASE, BMP, HEPATIC #### [address] Neutrophils (Bld) [#/Vol] 6.4 10*3/uL Normal 1.8-7.7 [facility] Comment on above: Performed By: #### S CAN CBC, PT, BNP, HS TROP, PTT, LIPASE, BMP, HEPATIC #### [facility] [address] Neutrophils/100 WBC (Bld) 57.4 % Normal . [facility] Comment on above: Performed By: #### S CAN CBC, PT, BNP, HS TROP, PTT, LIPASE, BMP, HEPATIC #### [facility] [address] Nucleated RBC/100 WBC (Bld) [Ratio] 0.1 % Normal 0-0.5 [facility] Comment on above: Performed By: #### S CAN CBC, PT, BNP, HS TROP, PTT, LIPASE, BMP, HEPATIC #### [facility] [address] Platelet Estimate Normal Normal Normal [facility] Comment on above: Performed By: #### S CAN CBC, PT, BNP, HS TROP, PTT, LIPASE, BMP, HEPATIC #### [facility] [address] Platelet mean volume (Bld) [Entitic vol] 6.8 fL Normal 6.6-10.1 [facility] Comment on above: Performed By: #### S CAN CBC, PT, BNP, HS TROP, PTT, LIPASE, BMP, HEPATIC #### [facility] [address] Platelet Morphology Normal Normal Normal [facility] Comment on above: Result Comment: PERF ORMED BY: [place] [address] PATHOLOGIST [employer]PERATOR STELLA CEJA M.D. Performed By: #### S CAN CBC, PT, BNP, HS TROP, PTT, LIPASE, BMP, HEPATIC #### [facility] [address] [place] [address] [place] Platelets (Bld) [#/Vol] 281 10*3/uL Normal 150-450 [facility] Comment on above: Performed By: #### S CAN CBC, PT, BNP, HS TROP, PTT, LIPASE, BMP, HEPATIC #### [facility] [address] [place] [address] [place] RBC (Bld) [#/Vol] 4.48 10*6/uL Normal 3.90-5.60 [facility] Comment on above: Performed By: #### S CAN CBC, PT, BNP, HS TROP, PTT, LIPASE, BMP, HEPATIC #### [facility] [address] RBC morphology finding Nom (Bld) Normal Normal [facility] Comment on above: Performed By: #### S CAN CBC, PT, BNP, HS TROP, PTT, LIPASE, BMP, HEPATIC #### [facility] [address] WBC (Bld) [#/Vol] 11.1 10*3/uL High 4.5-11.0 [facility] Comment on above: Performed By: #### S CAN CBC, PT, BNP, HS TROP, PTT, LIPASE, BMP, HEPATIC #### [facility] [address] Serum or plasma anion gap de terminationOrdered By: Vivek Muñiz on 06-26-2022 Anion gap [Moles/Vol] 9.6 mmol/L 6.0-15.0 [facility] Serum or plasma calcium simin urement (mass/volume)Ordered By: Vivek Muñiz on 06-26-2022 Calcium [Mass/Vol] 9.3 mg/dL 8.2-10.2 [facility] Serum or plasma chloride rick surement (moles/volume)Ordered By: Vivek Muñiz on 06-26-2022 Chloride [Moles/Vol] 103 mmol/L 95-114 [facility] Serum or plasma creatine kin ase MB (CKMB)/total creatine kinase (CK) ratio by calculaOrdered By: Vivek Muñiz on 06-26-2022 CK.MB Calc [Catalytic fraction] 5.6 % 0.00-2.50 [facility] Serum or plasma creatine kin ase MB measurement (mass/volume)Ordered By: Vivek Muñiz on 06-26-2022 CK.MB [Mass/Vol] 3.2 ng/mL 0.6-6.3 [facility] Serum or plasma glucose simin urement (mass/volume)Ordered By: Vivek Muñiz on 06-26-2022 Glucose [Mass/Vol] 98 mg/dL 70-100 [facility] Comment on above: ADA recommended refe rence rangeRandom Glucose Reference Range is dependent on time and content of last meal. Glucose of more than 200 mg/dL in a nonstressed, ambulatory subject supports the diagnosis of Diabetes Mellitus. Serum or plasma potassium me asurement (moles/volume)Ordered By: Vivek Muñiz on 06-26-2022 Potassium [Moles/Vol] 4.2 mmol/L 3.5-5.1 [facility] Serum or plasma sodium measu rement (moles/volume)Ordered By: Vivek Muñiz on 06-26-2022 Sodium [Moles/Vol] 136 mmol/L 136-146 [facility] Serum or plasma total carbon dioxide measurement (moles/volume)Ordered By: Vivek Muñiz on 06-26-2022 CO2 [Moles/Vol] 27.6 mmol/L 22.0-30.0 [facility] Serum or plasma urea nitroge n measurement (mass/volume)Ordered By: Vivek Muñiz on 06-26-2022 Urea nitrogen [Mass/Vol] 21 mg/dL 9-23 [facility] TSH DL <= 0.005 mIU/L QnOrde red By: Vivek Muñiz on 06-26-2022 TSH Qn 18.07 m[IU]/L 0.45-5.33 [facility] Thyroid Stimulating Hormoneo n 06-26-2022 TSH Qn 18.07 m[IU]/L High 0.45-5.33 [facility] Comment on above: Result Comment: PERF ORMED BY: [facility] [address] [place] [address] PATHOLOGIST [employer] OPERATOR STELLA CEJA M.D. Performed By: #### S CAN CBC, PT, BNP, HS TROP, PTT, LIPASE, BMP, HEPATIC #### [address] Thyroxine (T4) free [Mass/vo lume] in Serum or PlasmaOrdered By: Vivek Muñiz on 06-26-2022 Free T4 [Mass/Vol] 0.84 ng/dL 0.61-1.12 [facility] Troponin I High Sensitivityo n 06-26-2022 Troponin I High Sensitivity 8 pg/mL Normal 0-20 [facility] Comment on above: Result Comment: PERF ORMED BY: [place] [address] PATHOLOGIST W[employer] OPERATOR STELLA CEJA M.D. Performed By: #### S CAN CBC, PT, BNP, HS TROP, PTT, LIPASE, BMP, HEPATIC #### [facility] [address] Troponin I High Sensitivity 8 pg/mL Normal 0-20 [facility] Comment on above: Result Comment: PERF ORMED BY: [place] [address] PATHOLOGIST W[employer] OPERATOR STELLA CEJA M.D. Performed By: #### S CAN CBC, PT, BNP, HS TROP, PTT, LIPASE, BMP, HEPATIC #### [facility] [address] [place] [address] Troponin I.cardiac [Mass/vol ume] in Serum or Plasma by High sensitivity methodOrdered By: Vivek Muñiz on 06-26-2022 Troponin I.cardiac High sensitivity method [Mass/Vol] 8 pg/mL 0-20 [facility] Activated partial thrombopla stin time (aPTT) in platelet poor plasma by coagulation aOrdered By: Sujit White on 06-25-2022 aPTT Coag (PPP) [Time] 27.5 s 25.1-36.5 [facility] Albumin [Mass/volume] in Ser um or PlasmaOrdered By: Sujit White on 06-25-2022 Albumin [Mass/Vol] 3.8 g/dL 3.2-5.5 [facility] B-Type Natriuretic Peptideon 06-25-2022 Natriuretic peptide B (Bld) [Mass/Vol] 46.0 pg/mL Normal 5-100 [facility] Comment on above: Result Comment: PERF ORMED BY: [place] [address] PATHOLOGIST W[employer] OPERATOR STELLA CEJA M.D. Performed By: #### S CAN CBC, PT, BNP, HS TROP, PTT, LIPASE, BMP, HEPATIC #### [facility] [address] Basic Metabolic Panelon 06-11 Anion gap [Moles/Vol] 14.1 mmol/L Normal 6.0-15.0 [facility] Comment on above: Performed By: #### S CAN CBC, PT, BNP, HS TROP, PTT, LIPASE, BMP, HEPATIC #### [facility] [address] Calcium [Mass/Vol] 9.9 mg/dL Normal 8.2-10.2 [facility] Comment on above: Performed By: #### S CAN CBC, PT, BNP, HS TROP, PTT, LIPASE, BMP, HEPATIC #### [address] Chloride [Moles/Vol] 102 mmol/L Normal 95-114 [facility] Comment on above: Performed By: #### S CAN CBC, PT, BNP, HS TROP, PTT, LIPASE, BMP, HEPATIC #### [facility] [address] CO2 [Moles/Vol] 24.3 mmol/L Normal 22.0-30.0 [facility] Comment on above: Performed By: #### S CAN CBC, PT, BNP, HS TROP, PTT, LIPASE, BMP, HEPATIC #### [facility] [address] Creatinine [Mass/Vol] 1.13 mg/dL Normal 0.64-1.27 [facility] Comment on above: Performed By: #### S CAN CBC, PT, BNP, HS TROP, PTT, LIPASE, BMP, HEPATIC #### [facility] [address] Creatinine Clr Calc Pharmacy 96.76 [facility] Comment on above: Performed By: #### S CAN CBC, PT, BNP, HS TROP, PTT, LIPASE, BMP, HEPATIC #### [facility] [address] Estimated GFR ( [place]y > 60 [facility] Comment on above: Result Comment: GFR estimated reference range: According to KDOQI guidelines, <60 ml/min/1.73m2 is sufficient to diagnose a patient with chronic kidney disease. Performed By: #### S CAN CBC, PT, BNP, HS TROP, PTT, LIPASE, BMP, HEPATIC #### [facility] [address] Estimated GFR (Non- Am > 60 [facility] Comment on above: Performed By: #### S CAN CBC, PT, BNP, HS TROP, PTT, LIPASE, BMP, HEPATIC #### [facility] [address] Glucose [Mass/Vol] 116 mg/dL High 70-100 [facility] Comment on above: Result Comment: [place] om Glucose Reference Range is dependent on time and content of last meal. Glucose of more than 200 mg/dL in a nonstressed, ambulatory subject supports the diagnosis of Diabetes Mellitus. ADA recommended reference range Performed By: #### S CAN CBC, PT, BNP, HS TROP, PTT, LIPASE, BMP, HEPATIC #### [facility] [address] Potassium [Moles/Vol] 4.4 mmol/L Normal 3.5-5.1 [facility] Comment on above: Performed By: #### S CAN CBC, PT, BNP, HS TROP, PTT, LIPASE, BMP, HEPATIC #### [facility] [address] Sodium [Moles/Vol] 136 mmol/L Normal 136-146 [facility] Comment on above: Performed By: #### S CAN CBC, PT, BNP, HS TROP, PTT, LIPASE, BMP, HEPATIC #### [facility] [address] Urea nitrogen [Mass/Vol] 28 mg/dL High 9-23 [facility] Comment on above: Performed By: #### S CAN CBC, PT, BNP, HS TROP, PTT, LIPASE, BMP, HEPATIC #### [facility] [address] [place] [address] [facility] Basophils Auto (Bld) [#/Vol] Ordered By: Sujit White on 06-25-2022 Basophils (Bld) [#/Vol] 0.1 10*3/uL 0.0-0.2 [facility] Basophils/100 WBC Auto (Bld) Ordered By: Sujit White on 06-25-2022 Basophils/100 WBC (Bld) 0.9 % . [facility] COVID-19 Antigenon 2 COVID-19 Antigen Healthcare Worker?: N Reference Range: Negative Negative results, from patients with symptom onset beyond five days, should be treated as presumptive and confirmation with a molecular assay, if necessary, for patient management, may be performed. Negative results do not rule out COVID-19 and should not be used as the sole basis for treatment or patient management decisions, including infection control decisions. Negative results should be considered in the context of a patient's recent exposures, history and the presence of clinical signs and symptoms consistent with COVID-19. The Erica SARS Antigen NNIO does not differentiate between SARS-CoV and SARS-CoV-2. This test was developed and its performance characteristic determined by [employer] and validated at [facility]. This test has not been FDA cleared or approved. This test has been authorized by FDA under an Emergency Use Authorization (EUA). This test has been validated in accordance with the FDA's Guidance Document (Policy for Diagnostics Testing in Laboratories Certified to Perform High Complexity Testing under CLIA prior to Emergency Use Authorization for Coronavirus Disease-2019 during the Public Health Emergency) issued on December 12, 2019. This test is only authorized for the duration of time the declaration that circumstances exist justifying the authorization of the emergency use of in vitro diagnostic tests for detection of SARS-CoV-2 virus and/or diagnosis of COVID-19 infection under section 564(b)(1) of the Act, 21 U.S.C. 360bbb-3(b)(1), unless the authorization is terminated or revoked sooner. SARS-CoV+SARS-CoV-2 (COVID-19) Ag [Presence] in Respiratory specimen by Rapid immunoassay Negative for SARS Antigen by [employer]INO PERFORMED BY: [place] [id number] [place] [address] PATHOLOGIST WATER G[employer] OPERATOR STELLA CEJA M.D. Normal [facility] Comment on above: Performed By: #### S CAN CBC, PT, BNP, HS TROP, PTT, LIPASE, BMP, HEPATIC #### [facility] [address] [place] [address] [facility] COVID-19 FRMCon 06-25-2022 SARS-CoV-2 (COVID-19) RNA BRIAN+probe Ql (Unsp spec) Negative Normal Negative [facility] Comment on above: Order Comment: Healt hcare Worker?: N Result Comment: Testing for SARS-CoV-2 by RT-PCR This test was developed and its performance characteristics determined by [employer] and validated at the [facility]. This test has not been FDA cleared or approved. This test has been authorized by FDA under an Emergency Use Authorization (EUA). This test has been validated in accordance with the FDA's Guidance Document (Policy for Diagnostics Testing in Laboratories Certified to Perform High Complexity Testing under CLIA prior to Emergency Use Authorization for Coronavirus Disease-2019 during the Public Health Emergency) issued on December 12, 2019. This test is only authorized for the duration of time the declaration that circumstances exist justifying the authorization of the emergency use of in vitro diagnostic tests for detection of SARS-CoV-2 virus and/or diagnosis of COVID-19 infection under section 564(b)(1) of the Act, 21 U.S.C. 360bbb-3(b)(1), unless the authorization is terminated or revoked sooner. PERFORMED BY: [place] [id number] PATHOLOGIST WATER GAS OPERATOR STELLA CEJA M.D. Performed By: #### S CAN CBC, PT, BNP, HS TROP, PTT, LIPASE, BMP, HEPATIC #### [facility] [address] [place], [place] [id number] [facility] COVID-19 Positive/NegativeOr dered By: Sujit White on 06-25-2022 SARS-CoV-2 (COVID-19) N gene BRIAN+probe Ql (Resp) Negative Negative [facility] Comment on above: Testing for SARS-CoV -2 by RT-PCRThis test was developed and its performance characteristics determined by [employer] and validated at the [facility]. This test has not been FDA cleared or approved. This test has been authorized by FDA under an Emergency Use Authorization (EUA). This test has been validated in accordance with the FDA's Guidance Document (Policy for Diagnostics Testing in Laboratories Certified to Perform High Complexity Testing under CLIA prior to Emergency Use Authorization for Coronavirus Disease-2019 during the Public Health Emergency) issued on December 12, 2019. This test is only authorized for the duration of time the declaration that circumstances exist justifying the authorization of the emergency use of in vitro diagnostic tests for detection of SARS-CoV-2 virus and/or diagnosis of COVID-19 infection under section 564(b)(1) of the Act, 21 U.S.C. 360bbb-3(b)(1), unless the authorization is terminated or revoked sooner. COVID-19 SOFIAOrdered By: Milton White on 06-25-2022 SARS-CoV+SARS-CoV-2 (COVID-19) Ag IA.rapid Ql (Resp) Negative Negative [facility] Comment on above: This is a duplicate Erica SARS Antigen (NINO) result to be used for statistical tracking purpose only. CT angio cheston 06-25-2022 CT angio chest [facility] [place] [address] CT Scan Report Signed Patient: Paige Montiel MR#: [id number] : 1955 Acct:[id number] Age/Sex: 67 / M ADM Date: 06/25/22 Loc: ER Room: Type: [facility] ER Attending Dr: Copies to: Sujit White DO Ordering Provider: Sujit White DO Date of Service: 06/25/22 CT/CT angio chest: prior dissection, worsening pain today CTA CHEST WITH CONTRAST CLINICAL HISTORY: Sharp mid chest and left shoulder pain. History of thoracic aortic dissection. COMPARISON: 02/23/2022 TECHNIQUE: Spiral images were obtained through the chest following intravenous administration of 90 mL of Isovue 370. Images were reviewed using both narrow and wide window settings. Sagittal, coronal and 3 D volume-rendered reconstructions were performed and reviewed. This CT exam was performed using one or more following dose reduction techniques: Automated exposure control, adjustment of the mA and/or kV according to patient size, or use of iterative reconstruction technique. FINDINGS: The heart is mildly prominent. There is no pericardial effusion. Coronary artery calcification and/or stents are seen. There is stable aneurysmal dilatation of the aorta. At the root, the aorta again measures 4.3 cm. The remainder the ascending aorta is within normal limits for diameter. The diameter increases to approximately 4.7 cm through the arch and descending aorta. There is redemonstration of an aortic dissection which begins at the proximal arch before the great vessels. The great vessels arise from the true lumen. The dissection extends into the abdomen and beyond the images of the study. Once again it extends into the superior mesenteric artery. There is no periaortic fluid to suggest rupture. There is adequate opacification of the pulmonary arteries. No emboli are identified. No pathologic lymphadenopathy is seen. There is minor gynecomastia. There is dextroscoliotic curvature and mild degenerative changes involving the spine. There is no infiltrate, effusion or discrete soft tissue nodules. There is no pneumothorax. Limited cuts through the upper abdomen show hepatic cysts.. CT/CT angio chest IMPRESSION: MILD CARDIOMEGALY. STABLE THORACIC AORTIC ANEURYSM/DISSECTION. NO CT EVIDENCE OF PULMONARY EMBOLISM. NO ACUTE INTRATHORACIC FINDINGS. Impression dictated by: Negin More M.D.06/25/2022 4:52 PM Dictation Location: [place] [address] Transcribed By: [facility] 06/25/221651 Dictated By: Negin More MD 06/25/22 1639 Signed By: 06/25/22 1652 Normal [facility] Creatine Kinaseon 06-25-2022 CK [Catalytic activity/Vol] 70 U/L Normal 22-269 [facility] Comment on above: Performed By: #### S CAN CBC, PT, BNP, HS TROP, PTT, LIPASE, BMP, HEPATIC #### [address] Creatinine Kinase MBon 06-25 CK.MB [Mass/Vol] 4.1 ng/mL Normal 0.6-6.3 [facility] Comment on above: Performed By: #### S CAN CBC, PT, BNP, HS TROP, PTT, LIPASE, BMP, HEPATIC #### [facility] [address] CKMB Relative Index 5.8 % High 0.00-2.50 [facility] Comment on above: Performed By: #### S CAN CBC, PT, BNP, HS TROP, PTT, LIPASE, BMP, HEPATIC #### [facility] [address] Creatinine and Glomerular fi ltration rate.predicted panel (S/P/Bld)Ordered By: Sujit White on 06-25-2022 Creatinine [Mass/Vol] 1.13 mg/dL 0.64-1.27 [facility] Direct bilirubin measurement Ordered By: Sujit White on 06-25-2022 Bilirubin.direct [Mass/Vol] mg/dL 0.0-0.4 [facility] ECG 12 lead ECGon 06-25-2022 ECG 12 lead ECG [facility] [place] [address] Electrocardiograph Report Signed Patient: Paige Montiel MR#: [id number] : 1955 Acct:[id number] Age/Sex: 67 / M ADM Date: 06/25/22 Loc: Room: [address] [place] [address] Type: DIS INOo Attending Dr: Vivek Muñiz DO Ordering Provider: Sujit White DO Date of Service: 06/25/22 ECG/ECG 12 lead ECG: Chest Pain Copies to: Test Reason : Blood Pressure : 201/110 mmHG Vent. Rate : 063 BPM Atrial Rate : 063 BPM P-R Int : 236 ms QRS Dur : 104 ms QT Int : 420 ms P-R-T Axes : 000 -01 051 degrees QTc Int : 429 ms Atrial flutter with 3 to 1 block Confirmed by Sujit WHITE DO ([id number]) on 06/25/2022 5:40:35 PM Referred By: Electronically Signed By:Sujit WHITE DO Transcribed By: MUS Signed By Sujit White DO 1 1740 Normal [facility] ECG 12 lead ECG [facility] [place] [address] Electrocardiograph Report Signed Patient: Paige Montiel MR#: [id number] : 1955 Acct:[id number] Age/Sex: 67 / M ADM Date: 06/25/22 Loc: 3T Room: [address] [place] [address] Type: DIS INOo Attending Dr: Vivek Muñiz DO Ordering Provider: DARI ORLANDO Date of Service: 06/25/22 ECG/ECG 12 lead ECG: Chest Pain Copies to: Test Reason : Blood Pressure : 114/059 mmHG Vent. Rate : 068 BPM Atrial Rate : 241 BPM P-R Int : 000 ms QRS Dur : 096 ms QT Int : 380 ms P-R-T Axes : -83 031 015 degrees QTc Int : 404 ms Atrial flutter with variable AV block Nonspecific ST and T wave abnormality Confirmed by Sujit WHITE DO ([id number]) on 06/25/2022 5:39:45 PM Referred By: Electronically Signed By:Sujit WHITE DO Transcribed By: MUS Signed By Sujit White DO 1 1739 Normal [facility] Eosinophils Auto (Bld) [#/Vo l]Ordered By: Sujit White on 06-25-2022 Eosinophils (Bld) [#/Vol] 0.1 10*3/uL 0.0-0.45 [facility] Eosinophils/100 WBC Auto (Bl d)Ordered By: Sujit White on 06-25-2022 Eosinophils/100 WBC (Bld) 1.0 % . [facility] Erythrocyte distribution wid th Auto (RBC) [Ratio]Ordered By: Sujit White on 06-25-2022 Erythrocyte distribution width (RBC) [Ratio] 13.9 % 12.0-14.8 [facility] Estimated glomerular filtrat ion rate (GFR) non- AmericanOrdered By: Sujit White on 06-25-2022 GFR/1.73 sq M.predicted among non-blacks MDRD (S/P/Bld) [Vol rate/Area] > 60 mL/Min [facility] Globulin Calc (S) [Mass/Vol] Ordered By: Sujit White on 06-25-2022 Globulin (S) [Mass/Vol] 3.1 g/dL [facility] Hematocrit Auto (Bld) [Volum e fraction]Ordered By: Sujit White on 06-25-2022 Hematocrit (Bld) [Volume fraction] 41.6 % 38.8-50.0 [facility] Hemoglobin [Mass/volume] in BloodOrdered By: Sujit White on 06-25-2022 Hemoglobin (Bld) [Mass/Vol] 13.8 g/dL 13.0-17.0 [facility] Hepatic Panelon 06-25-2022 Albumin [Mass/Vol] 3.8 g/dL Normal 3.2-5.5 [facility] Comment on above: Performed By: #### S CAN CBC, PT, BNP, HS TROP, PTT, LIPASE, BMP, HEPATIC #### [facility] [address] Albumin/Globulin [Mass ratio] 1.2 {ratio} Normal [facility] Comment on above: Performed By: #### S CAN CBC, PT, BNP, HS TROP, PTT, LIPASE, BMP, HEPATIC #### [facility] [address] [place] [address] [place] ALP [Catalytic activity/Vol] 48 U/L Normal 32-92 [facility] Comment on above: Performed By: #### S CAN CBC, PT, BNP, HS TROP, PTT, LIPASE, BMP, HEPATIC #### [facility] [address] [place] [address] [place] ALT [Catalytic activity/Vol] 41 U/L Normal 10-60 [facility] Comment on above: Performed By: #### S CAN CBC, PT, BNP, HS TROP, PTT, LIPASE, BMP, HEPATIC #### [facility] [address] [place] [address] [place] AST [Catalytic activity/Vol] 27 U/L Normal 10-42 [facility] Comment on above: Performed By: #### S CAN CBC, PT, BNP, HS TROP, PTT, LIPASE, BMP, HEPATIC #### [facility] [address] [place] [address] [place] Bilirubin [Mass/Vol] 0.8 mg/dL Normal 0.3-1.2 [facility] Comment on above: Performed By: #### S CAN CBC, PT, BNP, HS TROP, PTT, LIPASE, BMP, HEPATIC #### [facility] [address] Bilirubin,Indirect Not performed Normal [facility] Comment on above: Performed By: #### S CAN CBC, PT, BNP, HS TROP, PTT, LIPASE, BMP, HEPATIC #### [facility] [address] Bilirubin.indirect [Mass/Vol] mg/dL Normal 0.0-0.4 [facility] Comment on above: Performed By: #### S CAN CBC, PT, BNP, HS TROP, PTT, LIPASE, BMP, HEPATIC #### [facility] [address] Globulin (S) [Mass/Vol] 3.1 g/dL Normal [facility] Comment on above: Performed By: #### S CAN CBC, PT, BNP, HS TROP, PTT, LIPASE, BMP, HEPATIC #### [facility] [address] Protein [Mass/Vol] 6.9 g/dL Normal 6.1-7.9 [facility] Comment on above: Performed By: #### S CAN CBC, PT, BNP, HS TROP, PTT, LIPASE, BMP, HEPATIC #### [facility] [address] Laboratory - Chemistry and C hemistry - challengeOrdered By: Sujit White on 06-25-2022 Lipase [Catalytic activity/Vol] 37.0 U/L 22-51 [facility] Natriuretic peptide B (Bld) [Mass/Vol] 46.0 pg/mL 5-100 [facility] Laboratory - CoagulationOrde red By: Sujit White on 06-25-2022 PT Coag (PPP) [Time] 15.5 s 9.0-12.9 [facility] Laboratory - Hematology and Cell countsOrdered By: Sujit White on 06-25-2022 Nucleated RBC/100 WBC (Bld) [Ratio] 0.1 % 0-0.5 [facility] - Microbiology an d Antimicrobial susceptibilityOrdered By: Sujit White on 06-25-2022 SARS-CoV-2 (COVID-19) RNA BRIAN+probe Ql (Unsp spec) N/A [facility] Leukocytes [#/volume] in Blo od by Automated countOrdered By: Sujit White on 06-25-2022 WBC (Bld) [#/Vol] 12.7 10*3/uL 4.5-11.0 [facility] Lipaseon 06-25-2022 Lipase [Catalytic activity/Vol] 37.0 U/L Normal 22-51 [facility] Comment on above: Result Comment: PERF ORMED BY: [place] [address] PATHOLOGIST [employer] OPERATOR STELLA CEJA M.D. Performed By: #### S CAN CBC, PT, BNP, HS TROP, PTT, LIPASE, BMP, HEPATIC #### [facility] [address] [place] [address] Lymphocytes Auto (Bld) [#/Vo l]Ordered By: Sujit White on 06-25-2022 Lymphocytes (Bld) [#/Vol] 2.8 10*3/uL 1.00-4.8 [facility] Lymphocytes/100 WBC Auto (Bl d)Ordered By: Sujit White on 06-25-2022 Lymphocytes/100 WBC (Bld) 21.8 % . [facility] MCH Auto (RBC) [Entitic mass ]Ordered By: Sujit White on 06-25-2022 MCH (RBC) [Entitic mass] 29.7 pg 27.5-35.2 [facility] MCHC Auto (RBC) [Mass/Vol]Or dered By: Sujit White on 06-25-2022 MCHC (RBC) [Mass/Vol] 33.2 g/dL 32.5-35.6 [facility] MCV Auto (RBC) [Entitic vol] Ordered By: Sujit White on 06-25-2022 MCV (RBC) [Entitic vol] 89.7 fL 83.5-101 [facility] Monocytes Auto (Bld) [#/Vol] Ordered By: Sujit White on 06-25-2022 Monocytes (Bld) [#/Vol] 1.9 10*3/uL 0.0-0.8 [facility] Monocytes/100 WBC Auto (Bld) Ordered By: Sujit White on 06-25-2022 Monocytes/100 WBC (Bld) 15.3 % . [facility] Neutrophils Auto (Bld) [#/Vo l]Ordered By: Sujit White on 06-25-2022 Neutrophils (Bld) [#/Vol] 7.7 10*3/uL 1.8-7.7 [facility] Neutrophils/100 WBC Auto (Bl d)Ordered By: Sujit White on 06-25-2022 Neutrophils/100 WBC (Bld) 61.0 % . [facility] No Panel InformationOrdered By: Sujit White on 06-25-2022 Estimated GFR () > 60 mL/Min [facility] Comment on above: GFR estimated refere nce range: According to KDOQI guidelines, <60 ml/min/1.73m2 is sufficient to diagnose a patient with chronic kidney disease. Pharmacy Creatinine Clearance (Chem 96.76 [facility] Platelet Estimate Normal Normal [facility] Platelet Morphology Comment Normal Normal [facility] SARS Antigen (LFIA) [facility] Partial Thromboplastin Timeo n 06-25-2022 aPTT Coag (Bld) [Time] 27.5 s Normal 25.1-36.5 [facility] Comment on above: Result Comment: PERF ORMED BY: [place] [address] PATHOLOGIST W[employer] OPERATOR STELLA CEJA M.D. Performed By: #### S CAN CBC, PT, BNP, HS TROP, PTT, LIPASE, BMP, HEPATIC #### [facility] [address] [place] [address] Platelet mean volume Auto (B ld) [Entitic vol]Ordered By: Sujit White on 06-25-2022 Platelet mean volume (Bld) [Entitic vol] 7.3 fL 6.6-10.1 [facility] Platelet poor plasma interna tional normalized ratio (INR) by coagulation assay (relatOrdered By: Sujit White on 06-25-2022 INR Coag (PPP) [Relative time] 1.4 {INR} [facility] Comment on above: INR Therapeutic Rang e A) Pre- and Peroperative OAT started two weeks before surgery. NOT HIP SURGERY: 1.5 - 2.5 HIP SURGERY: 2 - 3B) Primary and secondary prevention of venous THROMBOSIS: 2 - 3C) Active venous thrombosis, pulmonary embolismand prevention of recurrent venous thrombosis: 2 - 3D) Prevention of arterial thromboembolismincluding patients with mechanical heart valves: 3 - 4.5 Platelets Auto (Bld) [#/Vol] Ordered By: Sujit White on 06-25-2022 Platelets (Bld) [#/Vol] 273 10*3/uL 150-450 [facility] Protein [Mass/volume] in Ser um or PlasmaOrdered By: Sujit White on 06-25-2022 Protein [Mass/Vol] 6.9 g/dL 6.1-7.9 [facility] Prothrombin Time INRon 06-25 INR Coag (PPP) [Relative time] 1.4 {INR} Normal [facility] Comment on above: Result Comment: INR Therapeutic Range A) Pre- and Peroperative OAT started two weeks before surgery. NOT HIP SURGERY: 1.5 - 2.5 HIP SURGERY: 2 - 3 B) Primary and secondary prevention of venous THROMBOSIS: 2 - 3 C) Active venous thrombosis, pulmonary embolism and prevention of recurrent venous thrombosis: 2 - 3 D) Prevention of arterial thromboembolism including patients with mechanical heart valves: 3 - 4.5 Performed By: #### S CAN CBC, PT, BNP, HS TROP, PTT, LIPASE, BMP, HEPATIC #### [facility] [address] [place] [address] [place] PT Coag (PPP) [Time] 15.5 s High 9.0-12.9 [facility] Comment on above: Performed By: #### S CAN CBC, PT, BNP, HS TROP, PTT, LIPASE, BMP, HEPATIC #### [facility] [address] RBC Auto (Bld) [#/Vol]Ordere d By: Sujit White on 06-25-2022 RBC (Bld) [#/Vol] 4.64 10*6/uL 3.90-5.60 [facility] RBC morphologyOrdered By: Milton White on 06-25-2022 RBC morphology finding Nom (Bld) Normal [facility] Scan and CBCon 06-25-2022 Basophils (Bld) [#/Vol] 0.1 10*3/uL Normal 0.0-0.2 [facility] Comment on above: Performed By: #### S CAN CBC, PT, BNP, HS TROP, PTT, LIPASE, BMP, HEPATIC #### [facility] [address] Basophils/100 WBC (Bld) 0.9 % Normal . [facility] Comment on above: Performed By: #### S CAN CBC, PT, BNP, HS TROP, PTT, LIPASE, BMP, HEPATIC #### [facility] [address] Eosinophils (Bld) [#/Vol] 0.1 10*3/uL Normal 0.0-0.45 [facility] Comment on above: Performed By: #### S CAN CBC, PT, BNP, HS TROP, PTT, LIPASE, BMP, HEPATIC #### [facility] [address] Eosinophils/100 WBC (Bld) 1.0 % Normal . [facility] Comment on above: Performed By: #### S CAN CBC, PT, BNP, HS TROP, PTT, LIPASE, BMP, HEPATIC #### [facility] [address] Erythrocyte distribution width (RBC) [Ratio] 13.9 % Normal 12.0-14.8 [facility] Comment on above: Performed By: #### S CAN CBC, PT, BNP, HS TROP, PTT, LIPASE, BMP, HEPATIC #### [facility] [address] Hematocrit (Bld) [Volume fraction] 41.6 % Normal 38.8-50.0 [facility] Comment on above: Performed By: #### S CAN CBC, PT, BNP, HS TROP, PTT, LIPASE, BMP, HEPATIC #### [facility] [address] Hemoglobin (Bld) [Mass/Vol] 13.8 g/dL Normal 13.0-17.0 [facility] Comment on above: Performed By: #### S CAN CBC, PT, BNP, HS TROP, PTT, LIPASE, BMP, HEPATIC #### [address] Lymphocytes (Bld) [#/Vol] 2.8 10*3/uL Normal 1.00-4.8 [facility] Comment on above: Performed By: #### S CAN CBC, PT, BNP, HS TROP, PTT, LIPASE, BMP, HEPATIC #### [address] Lymphocytes/100 WBC (Bld) 21.8 % Normal . [facility] Comment on above: Performed By: #### S CAN CBC, PT, BNP, HS TROP, PTT, LIPASE, BMP, HEPATIC #### [address] MCH (RBC) [Entitic mass] 29.7 pg Normal 27.5-35.2 [facility] Comment on above: Performed By: #### S CAN CBC, PT, BNP, HS TROP, PTT, LIPASE, BMP, HEPATIC #### [address] MCV (RBC) [Entitic vol] 89.7 fL Normal 83.5-101 [facility] Comment on above: Performed By: #### S CAN CBC, PT, BNP, HS TROP, PTT, LIPASE, BMP, HEPATIC #### [address] Mean Corpuscular HGB Conc 33.2 g/dL Normal 32.5-35.6 [facility] Comment on above: Performed By: #### S CAN CBC, PT, BNP, HS TROP, PTT, LIPASE, BMP, HEPATIC #### [address] Monocytes (Bld) [#/Vol] 1.9 10*3/uL High 0.0-0.8 [facility] Comment on above: Performed By: #### S CAN CBC, PT, BNP, HS TROP, PTT, LIPASE, BMP, HEPATIC #### [facility] [address] [place] [address] [place] Monocytes/100 WBC (Bld) 15.3 % Normal . [facility] Comment on above: Performed By: #### S CAN CBC, PT, BNP, HS TROP, PTT, LIPASE, BMP, HEPATIC #### [facility] [address] Neutrophils (Bld) [#/Vol] 7.7 10*3/uL Normal 1.8-7.7 [facility] Comment on above: Performed By: #### S CAN CBC, PT, BNP, HS TROP, PTT, LIPASE, BMP, HEPATIC #### [facility] [address] Neutrophils/100 WBC (Bld) 61.0 % Normal . [facility] Comment on above: Performed By: #### S CAN CBC, PT, BNP, HS TROP, PTT, LIPASE, BMP, HEPATIC #### [facility] [address] Nucleated RBC/100 WBC (Bld) [Ratio] 0.1 % Normal 0-0.5 [facility] Comment on above: Performed By: #### S CAN CBC, PT, BNP, HS TROP, PTT, LIPASE, BMP, HEPATIC #### [facility] [address] Platelet Estimate Normal Normal Normal [facility] Comment on above: Performed By: #### S CAN CBC, PT, BNP, HS TROP, PTT, LIPASE, BMP, HEPATIC #### [facility] [address] [place] [address] [place] Platelet mean volume (Bld) [Entitic vol] 7.3 fL Normal 6.6-10.1 [facility] Comment on above: Performed By: #### S CAN CBC, PT, BNP, HS TROP, PTT, LIPASE, BMP, HEPATIC #### [facility] [address] Platelet Morphology Normal Normal Normal [facility] Comment on above: Result Comment: PERF ORMED BY: [place] [address] PATHOLOGIST W[employer] OPERATOR STELLA CEJA M.D. Performed By: #### S CAN CBC, PT, BNP, HS TROP, PTT, LIPASE, BMP, HEPATIC #### [facility] [address] Platelets (Bld) [#/Vol] 273 10*3/uL Normal 150-450 [facility] Comment on above: Performed By: #### S CAN CBC, PT, BNP, HS TROP, PTT, LIPASE, BMP, HEPATIC #### [facility] [address] RBC (Bld) [#/Vol] 4.64 10*6/uL Normal 3.90-5.60 [facility] Comment on above: Performed By: #### S CAN CBC, PT, BNP, HS TROP, PTT, LIPASE, BMP, HEPATIC #### [facility] [address] RBC morphology finding Nom (Bld) Normal Normal [facility] Comment on above: Performed By: #### S CAN CBC, PT, BNP, HS TROP, PTT, LIPASE, BMP, HEPATIC #### [facility] [address] WBC (Bld) [#/Vol] 12.7 10*3/uL High 4.5-11.0 [facility] Comment on above: Performed By: #### S CAN CBC, PT, BNP, HS TROP, PTT, LIPASE, BMP, HEPATIC #### [facility] [address] Serum or plasma alanine vasquez otransferase measurement without P-5'-P (enzymatic activiOrdered By: Sujit White on 06-25-2022 ALT No additional P-5'-P [Catalytic activity/Vol] 41 U/L 10-60 [facility] Serum or plasma albumin/glob ulin mass ratioOrdered By: Sujit White on 06-25-2022 Albumin/Globulin [Mass ratio] 1.2 {ratio} [facility] Serum or plasma alkaline natalya sphatase measurement (enzymatic activity/volume)Ordered By: Sujit White on 06-25-2022 ALP [Catalytic activity/Vol] 48 U/L 32-92 [facility] Serum or plasma anion gap de terminationOrdered By: Sujit White on 06-25-2022 Anion gap [Moles/Vol] 14.1 mmol/L 6.0-15.0 [facility] Serum or plasma aspartate am inotransferase measurement (enzymatic activity/volume)Ordered By: Sujit White on 06-25-2022 AST [Catalytic activity/Vol] 27 U/L 10- [facility] Serum or plasma calcium simin urement (mass/volume)Ordered By: Sujit White on 06-25-2022 Calcium [Mass/Vol] 9.9 mg/dL 8.2-10.2 [facility] Serum or plasma chloride rick surement (moles/volume)Ordered By: Sujit White on 06-25-2022 Chloride [Moles/Vol] 102 mmol/L 95-114 [facility] Serum or plasma glucose simin urement (mass/volume)Ordered By: Sujit White on 06-25-2022 Glucose [Mass/Vol] 116 mg/dL 70-100 [facility] Comment on above: ADA recommended refe rence rangeRandom Glucose Reference Range is dependent on time and content of last meal. Glucose of more than 200 mg/dL in a nonstressed, ambulatory subject supports the diagnosis of Diabetes Mellitus. Serum or plasma non-glucuron idated bilirubin measurement (mass/volume)Ordered By: Sujit White on 06-25-2022 Bilirubin.indirect [Mass/Vol] TNP [facility] Comment on above: Test not performed Serum or plasma potassium me asurement (moles/volume)Ordered By: Sujit White on 06-25-2022 Potassium [Moles/Vol] 4.4 mmol/L 3.5-5.1 [facility] Serum or plasma sodium measu rement (moles/volume)Ordered By: Sujit White on 06-25-2022 Sodium [Moles/Vol] 136 mmol/L 136-146 [facility] Serum or plasma total biliru bin measurement (mass/volume)Ordered By: Sujit Maurerrubina on 06-25-2022 Bilirubin [Mass/Vol] 0.8 mg/dL 0.3-1.2 [facility] Serum or plasma total carbon dioxide measurement (moles/volume)Ordered By: Sujit White on 06-25-2022 CO2 [Moles/Vol] 24.3 mmol/L 22.0-30.0 [facility] Serum or plasma urea nitroge n measurement (mass/volume)Ordered By: Sujit Maurerrubina on 06-25-2022 Urea nitrogen [Mass/Vol] 28 mg/dL 06-03 [facility] Erica Ag Negativeon 06-25-20 Erica Ag Negative Negative Normal Negative [facility] Comment on above: Result Comment: This is a duplicate Erica SARS Antigen (NINO) result to be used for statistical tracking purpose only. PERFORMED BY: [place] [address] PATHOLOGIST W[employer] G[employer] OPERATOR STELLA CEJA M.D. Performed By: #### S CAN CBC, PT, BNP, HS TROP, PTT, LIPASE, BMP, HEPATIC #### [facility] [address] [place] [address] [place] Troponin I High Sensitivityo n 06-25-2022 Troponin I High Sensitivity 8 pg/mL Normal 0-20 [facility] Comment on above: Result Comment: PERF ORMED BY: [place] [address] PATHOLOGIST WATER G[employer] OPERATOR STELLA CEJA M.D. Performed By: #### S CAN CBC, PT, BNP, HS TROP, PTT, LIPASE, BMP, HEPATIC #### [facility] [address] [place] [address] [facility] Troponin I High Sensitivity 12 pg/mL Normal 0-20 [facility] Comment on above: Result Comment: PERF ORMED BY: [place] [address] PATHOLOGIST WATER G[employer] OPERATOR STELLA CEJA M.D. Performed By: #### S CAN CBC, PT, BNP, HS TROP, PTT, LIPASE, BMP, HEPATIC #### [facility] [address] [place] [address] [facility] Troponin I.cardiac [Mass/vol ume] in Serum or Plasma by High sensitivity methodOrdered By: Sujit White on 06-25-2022 Troponin I.cardiac High sensitivity method [Mass/Vol] 12 pg/mL 0-20 [facility] MRI Shoulder w/o Righton MRI Shoulder w/o Right HISTORY: Anterior shoulder pain for 3 to 4 years. Numbness and tingling in the forearm. TECHNIQUE: Routine non-contrast MRI of the shoulder , right side. Some decreased signal related to patient body habitus. COMPARISON: Radiographs 02/08/2022. RESULT: Rotator Cuff Tendons: Mild to moderate tendinosis involving supraspinatus, infraspinatus, and subscapularis, without tear. Reactive cystic changes at the insertions. Teres minor appears intact. Long Head Biceps Tendon: Intact with appropriate location. Muscle: Muscle bulk and signal intensity are within normal limits. Labrum: Fraying/tearing. Bones and Marrow: No evidence of fracture or bone marrow replacing process. Glenohumeral Joint: Osteophytes with at least small areas of full-thickness chondral loss. No joint effusion. Acromioclavicular Joint: Moderate degenerative changes. Downsloping of the acromion. Undersurface osteophytes. Other: No other significant abnormality. IMPRESSION: Rotator cuff tendinosis without tear. Report reported and signed by Brian Styles on 03/18/2022 1521 Normal [facility] Patient Safety Manager [place] 02-28-2022 [facility] Telephone ([facility]) -- PAIGE MONTIEL ([id number]) 1955 M Date Time Provider [facility] your visit today, we recorded the following information about you: Isadora Siddiqui 02/28/2022 12:21 PM Signed Need copy of insurance card Allergies As of Date: 02/28/2022 (No Known Allergies) Date Reviewed: 02/26/2022 Reviewed by: Negin Daley RN - Fully Assessed Reason for Visit: Insurance Authorization [[id number]] Prescriptions as of 02/28/2022 - carvedilol (COREG) 12.5 mg tablet Take 1 tablet by mouth twice daily with meals. - chlorthalidone (HYGROTON) 25 mg tablet Take 1 tablet by mouth once daily. - spironolactone (ALDACTONE) 50 mg tablet Take 1 tablet by mouth once daily. - amLODIPine (NORVASC) 10 mg tablet Take 10 mg by mouth once daily. - apixaban (ELIQUIS) 5 mg tab(s) Take 5 mg by mouth twice daily. - atorvastatin (LIPITOR) 40 mg tablet Take 40 mg by mouth once daily. - ezetimibe (ZETIA) 10 mg tablet Take 10 mg by mouth once daily. - levothyroxine (SYNTHROID) 150 mcg tablet Take 150 mcg by mouth daily before breakfast. - olmesartan (BENICAR) 40 mg tablet Take 40 mg by mouth once daily. - pantoprazole DR (PROTONIX) 40 mg tablet Take 40 mg by mouth once daily. - tamsulosin (FLOMAX) 0.4 mg Take 0.4 mg by mouth once daily. - tiZANidine (ZANAFLEX) 4 mg tablet Take 4 mg by mouth once daily. Problem List As Of Date 02/28/2022 Noted Resolved Ascending aortic dissection (HCC) [I71.01] 02/23/2022 Longstanding persistent atrial fibrillation (HC*06/20/2019 Primary hypertension [I10] 02/23/2022 History of hypothyroidism [Z86.39] 02/23/2022 History of hyperlipidemia, mixed [Z86.39] 02/23/2022 Encounter Status:Closed by ISADORA HERNANDES on 02/28/22 Normal [facility] CBC panel Auto (Bld)on 02-26 Erythrocyte distribution width (RBC) [Ratio] 13.6 % Normal 11.5-15.0 [facility] Comment on above: Order Comment: Speci men Type: BLOOD SPECIMEN Ordering Facility: [facility] Address: [address] [place] [address] [place] [address] Performed By: #### Epifanio KCKMB, [id number], [id number], #### [facility] CLIA [id number] [address] [place] [address] [place] Hematocrit (Bld) [Volume fraction] 44.4 % Normal 39.0-51.0 [facility] Comment on above: Order Comment: Speci men Type: BLOOD SPECIMEN Ordering Facility: [facility] Address: [address] [place] [address] Performed By: #### Epifanio KCKMSandrine, [id number], [id number], #### [facility] CLIA [id number] [address] [place] [address] [place] Hemoglobin (Bld) [Mass/Vol] 14.7 g/dL Normal 13.0-17.0 [facility] Comment on above: Order Comment: Speci men Type: BLOOD SPECIMEN Ordering Facility: [facility] Address: [address] [place], [place] [id number] Performed By: #### Epifanio NELSONKMSandrine, [id number], 2157-02, #### [facility] CLIA [id number] [address] [place] [address] [place] MCH (RBC) [Entitic mass] 29.6 pg Normal 26.0-34.0 [facility] Comment on above: Order Comment: Speci men Type: BLOOD SPECIMEN Ordering Facility: [facility] Address: [address] [place], [place] [address] Performed By: #### Epifanio KCKMSandrine, 67960-3, 2157-02, #### [facility] CLIA [id number] [address] [place] [address] [place] MCHC (RBC) [Mass/Vol] 33.1 g/dL Normal 30.5-36.0 [facility] Comment on above: Order Comment: Speci men Type: BLOOD SPECIMEN Ordering Facility: [facility] Address: [address] [place], [place] [address] Performed By: #### Epifanio DEE, , 2157-02, #### [facility] CLIA [id number] [address] [place] [address] [place] MCV (RBC) [Entitic vol] 89.3 fL Normal 80.0-100.0 [facility] Comment on above: Order Comment: Speci men Type: BLOOD SPECIMEN Ordering Facility: [facility] Address: [address] [place], [place] [address] Performed By: #### Epifanio DEE, , 2157-02, #### [facility] CLIA [id number] [address] [place] [address] [place] Nucleated RBC (Bld) [#/Vol] 10*3/uL Normal <0.01 [facility] Comment on above: Order Comment: Speci men Type: BLOOD SPECIMEN Ordering Facility: [facility] Address: [address] [place], [place] [address] Performed By: #### Epifanio DEE, , 2157-02, #### [facility] CLIA [id number] [address] [place] [address] [place] Platelet mean volume (Bld) [Entitic vol] 9.5 fL Normal 9.0-12.7 [facility] Comment on above: Order Comment: Speci men Type: BLOOD SPECIMEN Ordering Facility: [facility] Address: [address] [place], [place] [address] Performed By: #### Epifanio DEE, , 2157-02, #### [facility] CLIA [id number] [address] [place] [address] [place] Platelets (Bld) [#/Vol] 203 10*3/uL Normal 150-400 [facility] Comment on above: Order Comment: Speci men Type: BLOOD SPECIMEN Ordering Facility: [facility] Address: [address] [place] [address] Performed By: #### C KCKMB, 80581-9, 6, 46064-4 #### [facility] CLIA [id number] [address] [place] [address] [place] [facility] RBC (Bld) [#/Vol] 4.97 10*6/uL Normal 4.20-6.[address] [facility] Comment on above: Order Comment: Speci men Type: BLOOD SPECIMEN Ordering Facility: [facility] Address: [address] [place] [address] Performed By: #### C KCKMB, 67690-9, 2157-02, #### [facility] CLIA [id number] [address] [place] [address] [place] WBC (Bld) [#/Vol] 7.85 10*3/uL Normal 3.70-11.[address] [facility] Comment on above: Order Comment: Speci men Type: BLOOD SPECIMEN Ordering Facility: [facility] Address: [address] [place] [address] Performed By: #### C KCKMB, 70341-0, 2157-02, #### [facility] CLIA [id number] [address] [place] [address] OF [facility] CNDSon 02-26-2022 CNDS HNO ID: [id number] Author: Juaquin Vaca MD Service: Cardiovascular Medicine Author Type: Physician Type: Discharge Summary Filed: 03/08/2022 4:36 PM Note Text: Department of Cardiovascular Medicine Discharge Summary (Template ID [id number]) PATIENT NAME: Paige Montiel ADMISSION DATE: 02/23/2022 DISCHARGE DATE: 02/26/2022 Attending Physician: No att. providers found Code Status: Not on file Primary Service: Hvi Imaging Admission Diagnosis: Type A aortic dissection Discharge Diagnosis: Type A aortic dissection Secondary Diagnoses: Patient Active Hospital Problem List: Ascending aortic dissection (HCC) (02/23/2022) Longstanding persistent atrial fibrillation (HCC) (06/20/2019) Primary hypertension (02/23/2022) History of hypothyroidism (02/23/2022) History of hyperlipidemia, mixed (02/23/2022) Reason for Hospitalization: Mr. Montiel with a history of TAAD s/p repair (2012), HTN, HLD, persistent AF s/p ablation (2014) and multiple DCCV (last 2015) on apixaban. He was transferred to [facility] with concern for acute type A aortic dissection. Hospital Course: On admission, he was evaluated by cardiac and vascular surgery. CTA from 02/23/[address] from 02/18/2022: Repaired type-A Aortic dissection: [place] about 4.7 cm; Intact surgical graft ascending aorta; residual dissection beyond graft, proximal descending about 4.4 cm (need to confirm in 3D reconstruction); abdominal aorta with poor contrast enhancement; no interval change; no leakage/rupture, no pericardial effusion; patient has coronary calcification Both teams did not feel any acute intervention was necessary at this time. He was continued on impulse control. Medication changes made, - Start carvedilol 12.5 mg two times per day - Start chlorthalidone 25 mg daily - Start spironolactone 50 mg daily - Continue amlodipine 10 mg daily - Continue olmesartan 40 mg daily - STOP triamterene-HCTZ 37.5-25 mg daily - CONTINUE your other medications as you had prior to this admission. Request for follow up with Dr. Howell was made at discharge. Consults: Vascular surgery Cardiac surgery Major Procedure or Operation: None Other Procedures, Testing AND Radiology: CTA chest Patient Condition at Discharge: Stable Disposition: Home with Self Care Information Provided to the Patient: Patient given copy of After Visit Summary which included activity instructions, diet instructions, wound care instructions, medication instructions and follow up appointment. ALLERGIES No Known Allergies Discharge Medications: Discharge Medication List as of 02/26/2022 2:40 PM START taking these medications carvedilol (COREG) 12.5 mg tablet Take 1 tablet by mouth twice daily with meals. Normal, Disp-60 tablet, R-1, Long-term chlorthalidone (HYGROTON) 25 mg tablet Take 1 tablet by mouth once daily. Normal, Disp-30 tablet, R-1, Long-term spironolactone (ALDACTONE) 50 mg tablet Take 1 tablet by mouth once daily. Normal, Disp-30 tablet, R-1, Long-term CONTINUE these medications which have NOT CHANGED amLODIPine (NORVASC) 10 mg tablet Take 10 mg by mouth once daily. Historical Med, Long-term apixaban (ELIQUIS) 5 mg tab(s) Take 5 mg by mouth twice daily. Historical Med atorvastatin (LIPITOR) 40 mg tablet Take 40 mg by mouth once daily. Historical Med, Long-term ezetimibe (ZETIA) 10 mg tablet Take 10 mg by mouth once daily. Historical Med, Long-term levothyroxine (SYNTHROID) 150 mcg tablet Take 150 mcg by mouth daily before breakfast. Historical Med, Long-term olmesartan (BENICAR) 40 mg tablet Take 40 mg by mouth once daily. Historical Med, Long-term pantoprazole DR (PROTONIX) 40 mg tablet Take 40 mg by mouth once daily. Historical Med, Long-term tamsulosin (FLOMAX) 0.4 mg Take 0.4 mg by mouth once daily. Historical Med, Long-term tiZANidine (ZANAFLEX) 4 mg tablet Take 4 mg by mouth once daily. Historical Med STOP taking these medications triamterene-hydroCHLOROthi azide (MAXZIDE-25) 37.5-25 mg per tablet Comments: Reason for Stopping: Transitions of Care Critical Issues: Outpatient Management: * Are there important medication changes and/or outstanding issues that need to be addressed: BP control BMP * What is the plan for follow up: Follow up with Dr. Howell requested Future Appointments: Please follow-up as recommended by your provider. Highest Readmission Risk Score: 14 The 30 day readmissions risk score is derived from an internally validated risk model which evaluates patient level characteristics, utilization history, medication orders and lab results up until the day of discharge. Patients with a score of 40 or above are considered highest risk for readmission. Specific patient level drivers will be listed at the bottom of the summary. The patient's risk for 30-day readmission is determined using the following contributing factors: Pt varia (more content not included)... Normal [facility] metabolic 2000 panelon 02-26-2022 Albumin [Mass/Vol] 4.0 g/dL Normal 3.9-4.9 [facility] Comment on above: Order Comment: Speci men Type: BLOOD SPECIMEN Ordering Facility: [facility] Address: [address] [place] [address] Performed By: #### Epifanio EDE, 69661-3, 2157-02, #### [facility] CLIA [id number] [address] [place] [address] [place] ALP [Catalytic activity/Vol] 74 U/L Normal 38-113 [facility] Comment on above: Order Comment: Speci men Type: BLOOD SPECIMEN Ordering Facility: [facility] Address: [address] [place] [address] Performed By: #### Epifanio DEE, 92149-0, 2157-02, #### [facility] CLIA [id number] [address] [place] [address] [place] ALT [Catalytic activity/Vol] 21 U/L Normal 10-54 [facility] Comment on above: Order Comment: Speci men Type: BLOOD SPECIMEN Ordering Facility: [facility] Address: [address] [place] [address] Result Comment: Resu lts may be falsely increased due to interference from hemolysis. Suggest reorder as clinically indicated. Performed By: #### Epifanio DEE, 60347-9, 2157-02, #### [facility] CLIA [id number] [address] [place] [address] [place] Anion gap [Moles/Vol] 13 mmol/L Normal 9-18 [facility] Comment on above: Order Comment: Speci men Type: BLOOD SPECIMEN Ordering Facility: [facility] Address: [address] [place] [address] Performed By: #### Epifanio DEE, 98211-6, 2157-02, #### [facility] CLIA [id number] [address] [place] [address] [place] AST [Catalytic activity/Vol] 27 U/L Normal 14-40 [facility] Comment on above: Order Comment: Speci men Type: BLOOD SPECIMEN Ordering Facility: [facility] Address: [address] [place] [address] Result Comment: Resu lts may be falsely increased due to interference from hemolysis. Suggest reorder as clinically indicated. Performed By: #### Epifanio DEE, 77114-0, 2157-02, #### [facility] CLIA [id number] [address] [place] [address] [place] Bilirubin [Mass/Vol] 0.7 mg/dL Normal 0.2-1.[address] [facility] Comment on above: Order Comment: Speci men Type: BLOOD SPECIMEN Ordering Facility: [facility] Address: [address] [place], [place] [address] Performed By: #### Epifanio DEE, 73259-1, 2157-02, #### [facility] CLIA [id number] [address] [place] [address] [place] Calcium [Mass/Vol] 9.4 mg/dL Normal 8.5-10.2 [facility] Comment on above: Order Comment: Speci men Type: BLOOD SPECIMEN Ordering Facility: [facility] Address: [address] [place], [place] [address] Performed By: #### Epifanio DEE, 41368-9, 2157-02, #### [facility] CLIA [id number] [address] [place] [address] [place] Chloride [Moles/Vol] 103 mmol/L Normal 97-[address] [facility] Comment on above: Order Comment: Speci men Type: BLOOD SPECIMEN Ordering Facility: [facility] Address: [address] [place], [place] [address] Performed By: #### Epifanio DEE, , 2157-02, #### [facility] CLIA [id number] [address] [place] [address] [place] CO2 [Moles/Vol] 21 mmol/L Low 22-30 [facility] Comment on above: Order Comment: Speci men Type: BLOOD SPECIMEN Ordering Facility: [facility] Address: [address] [place] [address] Performed By: #### C KCKMSandrine, , 2157-02, #### [facility] CLIA [id number] [address] [place] [address] [place] Creatinine [Mass/Vol] 0.71 mg/dL Low 0.73-1.22 [facility] Comment on above: Order Comment: Speci men Type: BLOOD SPECIMEN Ordering Facility: [facility] Address: [address] [place] [address] Performed By: #### Epifanio KCKMSandrine, , 2157-02, #### [facility] CLIA [id number] [address] [place] [address] [place] ESTIMATED GLOMERULAR FILTRATION RATE 101 mL/min/1.73m??? Normal >=60 [facility] Comment on above: Order Comment: Speci men Type: BLOOD SPECIMEN Ordering Facility: [facility] Address: [address] [place] [address] Result Comment: Anat mated Glomerular Filtration Rate (eGFR) is calculated using the 2020 CKD-EPI creatinine equation. This equation utilizes serum creatinine, sex, and age as parameters. The creatinine assay has traceable calibration to isotope dilution-mass spectrometry. Refer to KDIGO guidelines for clinical interpretation. In patients with unstable renal function, e.g. those with acute kidney injury, the eGFR may not accurately reflect actual GFR. Performed By: #### C KCKMB, , 2157-02, #### [facility] CLIA [id number] [address] [place] [address] [place] Glucose [Mass/Vol] 99 mg/dL Normal 74-99 [facility] Comment on above: Order Comment: Speci men Type: BLOOD SPECIMEN Ordering Facility: [facility] Address: [address] [place] [address] Result Comment: [place] Diabetes Association (ADA) provides guidance for cutoff values for fasting glucose and random glucose. The ADA defines fasting as no caloric intake for at least 8 hours. Fasting plasma glucose results between 100 to 125 mg/dL indicate increased risk for diabetes (prediabetes). Fasting plasma glucose results greater than or equal to 126 mg/dL meet the criteria for diagnosis of diabetes. In the absence of unequivocal hyperglycemia, results should be confirmed by repeat testing. In a patient with classic symptoms of hyperglycemia or hyperglycemic crisis, random plasma glucose results greater than or equal to 200 mg/dL meet the criteria for diagnosis of diabetes. Reference: Standards of Medical Care in Diabetes 2016, [place] Diabetes Association. Diabetes Care. 2016.39(Suppl 1). Performed By: #### C LEILA, 98583-9, 2157-02, #### [facility] CLIA [id number] [address] [place] [address] [place] Potassium [Moles/Vol] Normal [facility] Comment on above: Order Comment: Maribeli george Type: BLOOD SPECIMEN Ordering Facility: [facility] Address: [address] [place] [address] Result Comment: Unab le to assay due to interference from hemolysis. Suggest reorder as clinically indicated. Performed By: #### C LESLIEKMSandrine, 69312-5, 2157-02, #### [facility] CLIA [id number] [address] [place] [address] [place] Protein [Mass/Vol] 7.5 g/dL Normal 6.3-8.0 [facility] Comment on above: Order Comment: Cristina vazquez Type: BLOOD SPECIMEN Ordering Facility: [facility] Address: [address] [place], [place] [address] Performed By: #### C LEILA, 65374-8, 2157-02, #### [facility] CLIA [id number] [address] [place] [address] [place] Sodium [Moles/Vol] 137 mmol/L Normal 136-144 [facility] Comment on above: Order Comment: Speci men Type: BLOOD SPECIMEN Ordering Facility: [facility] Address: [address] [place] [address] Performed By: #### C KCKMB, 28183-6, 2157-02, #### [facility] CLIA [id number] [address] [place] [address] [place] Urea nitrogen [Mass/Vol] 14 mg/dL Normal 9-24 [facility] Comment on above: Order Comment: Speci men Type: BLOOD SPECIMEN Ordering Facility: [facility] Address: [address] [place] [address] Performed By: #### C KCKMB, 49986-9, 2157-02, #### [facility] CLIA [id number] [address] [place] [address] [place] Magnesium SerPl-mCncon 02-26 Magnesium [Mass/Vol] 2.0 mg/dL Normal 1.7-2.[address] [facility] Comment on above: Order Comment: Speci men Type: BLOOD SPECIMEN Ordering Facility: [facility] Address: [address] [place] [address] Performed By: #### C KCKMB, 99616-5, 2157-02, #### [facility] CLIA [id number] [address] [place] [address] [place] NURSING PROGon 02-26-2022 NURSING PROG HNO ID: [id number] Author: Rayna Lagos RN Service: Nursing Author Type: Registered Nurse Type: Nursing Progress Note Filed: 02/25/2022 10:09 PM Note Text: Nursing Progress Note Patient Name: Paige Montiel Patient Location: [address]03-11-05 Transfer Note: Patient transferred into room/unit J71-05 in stable condition. Actions taken: Patient belongings with patient. Transfer orders released. This note was completed by: Rayna VOGEL RN Normal [facility] POTASSIUM Leo 02-26-2022 Potassium [Moles/Vol] 3.9 mmol/L Normal 3.7-5.1 [facility] Comment on above: Order Comment: Speci men Type: BLOOD SPECIMEN Ordering Facility: [facility] Address: [address] [place] [address] Performed By: #### C KCKMB, 77668-6, 2157-6, 05117-6 #### [facility] CLIA [id number] [address] [place] [address] [place] XR CHEST 1V FRONTAL PORTon 0 02-26-2022 XR CHEST 1V FRONTAL PORT * * *Final Report* * * DATE OF EXAM: Feb 26 2022 7:03AM JIX [id number] - XR CHEST 1V FRONTAL PORT / PROCEDURE REASON: Chest pain, nonspecific * * * * Physician Interpretation * * * * EXAMINATION: CHEST RADIOGRAPH (PORTABLE SINGLE VIEW AP) Exam Date/Time: 02/26/2022 7:03 AM Clinical History: Chest pain, nonspecific MQ: [id number] Comparison: 1 day prior RESULT: Lines, tubes, and devices: None. Lungs and pleura: No focal consolidation or overt pulmonary edema. No pleural effusion or pneumothorax. The lungs are hyperinflated. Cardiomediastinal silhouette: Stable cardiomediastinal silhouette noting tortuous and ectatic thoracic aorta.. Other: Status post median sternotomy. IMPRESSION: See result. Sales Route Driver: PSCB Transcribe Date/Time: Feb 26 2022 10:08A Dictated by : MELODIE VARNER MD This examination was interpreted and the report reviewed and electronically signed by: MELODIE VARNER MD on Feb 26 2022 10:08AM EST [id number] Normal [facility] Basic metabolic 2000 panelon 02-25-2022 Anion gap [Moles/Vol] 11 mmol/L Normal 9-18 [facility] Comment on above: Order Comment: Speci men Type: BLOOD SPECIMEN Ordering Facility: [facility] Address: [address] [place], [place] [address] Performed By: #### Epifanio DEE, 80678-2, 2157-02, #### [facility] CLIA [id number] [address] [place] [address] [place] Calcium [Mass/Vol] 9.7 mg/dL Normal 8.5-10.2 [facility] Comment on above: Order Comment: Speci men Type: BLOOD SPECIMEN Ordering Facility: [facility] Address: [address] [place], [place] [address] Performed By: #### Epifanio DEE, 70279-4, 2157-02, #### [facility] CLIA [id number] [address] [place] [address] [place] Chloride [Moles/Vol] 103 mmol/L Normal 97-[address] [facility] Comment on above: Order Comment: Speci men Type: BLOOD SPECIMEN Ordering Facility: [facility] Address: [address] [place], [place] [address] Performed By: #### Epifanio NELSONKMB, 04128-3, 2157-02, #### [facility] CLIA [id number] [address] [place] [address] [place] CO2 [Moles/Vol] 24 mmol/L Normal 22-30 [facility] Comment on above: Order Comment: Speci men Type: BLOOD SPECIMEN Ordering Facility: [facility] Address: [address] [place], [place] [address] Performed By: #### C KCKMB, 02845-2, 2157-02, #### [facility] CLIA [id number] [address] [place] [address] [place] Creatinine [Mass/Vol] 0.74 mg/dL Normal 0.73-1.22 [facility] Comment on above: Order Comment: Speci men Type: BLOOD SPECIMEN Ordering Facility: [facility] Address: [address] [place], [place] [address] Performed By: #### C KCKMB, 82646-1, 2157-02, #### [facility] CLIA [id number] [address] [place] [address] [place] ESTIMATED GLOMERULAR FILTRATION RATE 99 mL/min/1.73m??? Normal >=60 [facility] Comment on above: Order Comment: Maribeli men Type: BLOOD SPECIMEN Ordering Facility: [facility] Address: [address] [place], [place] [address] Result Comment: Anat mated Glomerular Filtration Rate (eGFR) is calculated using the 2020 CKD-EPI creatinine equation. This equation utilizes serum creatinine, sex, and age as parameters. The creatinine assay has traceable calibration to isotope dilution-mass spectrometry. Refer to KDIGO guidelines for clinical interpretation. In patients with unstable renal function, e.g. those with acute kidney injury, the eGFR may not accurately reflect actual GFR. Performed By: #### Epifanio KCKMB, 49020-3, 2157-02, #### [facility] CLIA [id number] [address] [place] [address] [place] Glucose [Mass/Vol] 108 mg/dL High 74-99 [facility] Comment on above: Order Comment: Speci men Type: BLOOD SPECIMEN Ordering Facility: [facility] Address: [address] [place], [place] [address] Result Comment: The [place] Diabetes Association (ADA) provides guidance for cutoff values for fasting glucose and random glucose. The ADA defines fasting as no caloric intake for at least 8 hours. Fasting plasma glucose results between 100 to 125 mg/dL indicate increased risk for diabetes (prediabetes). Fasting plasma glucose results greater than or equal to 126 mg/dL meet the criteria for diagnosis of diabetes. In the absence of unequivocal hyperglycemia, results should be confirmed by repeat testing. In a patient with classic symptoms of hyperglycemia or hyperglycemic crisis, random plasma glucose results greater than or equal to 200 mg/dL meet the criteria for diagnosis of diabetes. Reference: Standards of Medical Care in Diabetes 2016, [place] Diabetes Association. Diabetes Care. 2016.39(Suppl 1). Performed By: #### Epifanio KCKMB, 77854-3, 2157-02, #### [facility] CLIA [id number] [address] [place] [address] [place] Potassium [Moles/Vol] 4.0 mmol/L Normal 3.7-5.1 [facility] Comment on above: Order Comment: Cristina vazquez Type: BLOOD SPECIMEN Ordering Facility: [facility] Address: [address] [place], [place] [address] Performed By: #### Epifanio KCKMB, , 2157-02, #### [facility] CLIA [id number] [address] [place] [address] [place] Sodium [Moles/Vol] 138 mmol/L Normal 136-144 [facility] Comment on above: Order Comment: Cristina vazquez Type: BLOOD SPECIMEN Ordering Facility: [facility] Address: [address] [place], [place] [id number] Performed By: #### C KCKMB, , 2157-02, #### [facility] CLIA [id number] [address] [place] [address] [place] Urea nitrogen [Mass/Vol] 15 mg/dL Normal 9-24 [facility] Comment on above: Order Comment: Maribeli men Type: BLOOD SPECIMEN Ordering Facility: [facility] Address: [address] [place], [place] [address] Performed By: #### Epifanio DEE, , 2157-02, #### [facility] CLIA [id number] [address] [place] [address] [place] CBC panel Auto (Bld)on 02-25 Erythrocyte distribution width (RBC) [Ratio] 14.0 % Normal 11.5-15.0 [facility] Comment on above: Order Comment: Speci men Type: BLOOD SPECIMEN Ordering Facility: [facility] Address: [address] [place], [place] [address] Performed By: #### Epifanio DEE, , 2157-02, #### [facility] CLIA [id number] [address] [place] [address] [place] Hematocrit (Bld) [Volume fraction] 38.4 % Low 39.0-51.0 [facility] Comment on above: Order Comment: Speci men Type: BLOOD SPECIMEN Ordering Facility: [facility] Address: [address] [place], [place] [address] Performed By: #### Epifanio DEE, , 2157-02, #### [facility] CLIA [id number] [address] [place] [address] [place] Hemoglobin (Bld) [Mass/Vol] 12.4 g/dL Low 13.0-17.0 [facility] Comment on above: Order Comment: Speci men Type: BLOOD SPECIMEN Ordering Facility: [facility] Address: [address] [place], [place] [address] Performed By: #### Epifanio DEE, , 2157-02, #### [facility] CLIA [id number] [address] [place] [address] [place] MCH (RBC) [Entitic mass] 29.2 pg Normal 26.0-34.0 [facility] Comment on above: Order Comment: Speci men Type: BLOOD SPECIMEN Ordering Facility: [facility] Address: [address] [place], [place] [address] Performed By: #### Epifanio DEE, 32343-4, 2157-02, #### [facility] CLIA [id number] [address] [place] [address] [place] MCHC (RBC) [Mass/Vol] 32.3 g/dL Normal 30.5-36.0 [facility] Comment on above: Order Comment: Speci men Type: BLOOD SPECIMEN Ordering Facility: [facility] Address: [address] [place] [address] Performed By: #### C LEILA, 53216-9, 2157-02, #### [facility] CLIA [id number] [address] [place] [address] [place] MCV (RBC) [Entitic vol] 90.4 fL Normal 80.0-100.0 [facility] Comment on above: Order Comment: Speci men Type: BLOOD SPECIMEN Ordering Facility: [facility] Address: [address] [place] [address] Performed By: #### Epifanio DEE, , 2157-02, #### [facility] CLIA [id number] [address] [place] [address] [place] Nucleated RBC (Bld) [#/Vol] 10*3/uL Normal <0.01 [facility] Comment on above: Order Comment: Speci men Type: BLOOD SPECIMEN Ordering Facility: [facility] Address: [address] [place], [place] [address] Performed By: #### C LESLIEKMSandrine, , 2157-02, #### [facility] CLIA [id number] [address] [place] [address] [place] Platelet mean volume (Bld) [Entitic vol] 9.2 fL Normal 9.0-12.7 [facility] Comment on above: Order Comment: Speci men Type: BLOOD SPECIMEN Ordering Facility: [facility] Address: [address] [place] [address] Performed By: #### Epifanio DEE, 02491-6, 2157-02, #### [facility] CLIA [id number] [address] [place] [address] [place] Platelets (Bld) [#/Vol] 202 10*3/uL Normal 150-400 [facility] Comment on above: Order Comment: Speci men Type: BLOOD SPECIMEN Ordering Facility: [facility] Address: [address] [place] [address] Performed By: #### Epifanio DEE, 04378-4, 2157-02, #### [facility] CLIA [id number] [address] [place] [address] [place] RBC (Bld) [#/Vol] 4.25 10*6/uL Normal 4.20-6.[address] [facility] Comment on above: Order Comment: Speci men Type: BLOOD SPECIMEN Ordering Facility: [facility] Address: [address] [place] [address] Performed By: #### Epifanio DEE, 00020-0, 2157-02, #### [facility] CLIA [id number] [address] [place] [address] [place] WBC (Bld) [#/Vol] 9.34 10*3/uL Normal 3.70-11.[address] [facility] Comment on above: Order Comment: Speci men Type: BLOOD SPECIMEN Ordering Facility: [facility] Address: [address] [place] [address] Performed By: #### Epifanio DEE, 24714-6, 2157-02, #### [facility] CLIA [id number] [address] [place] [address] [place] Comprehensive metabolic 2000 panelon 02-25-2022 Albumin [Mass/Vol] 3.5 g/dL Low 3.9-4.9 [facility] Comment on above: Order Comment: Speci men Type: BLOOD SPECIMEN Ordering Facility: [facility] Address: [address] [place], [place] [address] Performed By: #### Epifanio NELSONKMSandrine, 72261-2, 2157-02, #### [facility] CLIA [id number] [address] [place] [address] [place] ALP [Catalytic activity/Vol] 67 U/L Normal 38-113 [facility] Comment on above: Order Comment: Speci men Type: BLOOD SPECIMEN Ordering Facility: [facility] Address: [address] [place] [address] Performed By: #### Epifanio DEE, 88749-7, 2157-02, #### [facility] CLIA [id number] [address] [place] [address] [place] ALT [Catalytic activity/Vol] 17 U/L Normal 10-54 [facility] Comment on above: Order Comment: Speci men Type: BLOOD SPECIMEN Ordering Facility: [facility] Address: [address] [place] [address] Performed By: #### Epifanio NELSONKMSandrine, 55922-1, 2157-02, #### [facility] CLIA [id number] [address] [place] [address] [place] Anion gap [Moles/Vol] 7 mmol/L Low 9-18 [facility] Comment on above: Order Comment: Speci men Type: BLOOD SPECIMEN Ordering Facility: [facility] Address: [address] [place] [address] Performed By: #### Epifanio NELSONKMSandrine, 98194-6, 2157-02, #### [facility] CLIA [id number] [address] [place] [address] [place] AST [Catalytic activity/Vol] 17 U/L Normal 14-40 [facility] Comment on above: Order Comment: Speci men Type: BLOOD SPECIMEN Ordering Facility: [facility] Address: [address] [place] [address] Performed By: #### Epifanio KCKMaSndrine, 68184-8, 2157-02, #### [facility] CLIA [id number] [address] [place] [address] [place] Bilirubin [Mass/Vol] 0.6 mg/dL Normal 0.2-1.[address] [facility] Comment on above: Order Comment: Speci men Type: BLOOD SPECIMEN Ordering Facility: [facility] Address: [address] [place] [address] Performed By: #### Epifanio NELSONKMSandrine, 16967-5, 2157-02, #### [facility] CLIA [id number] [address] [place] [address] [place] Calcium [Mass/Vol] 9.2 mg/dL Normal 8.5-10.2 [facility] Comment on above: Order Comment: Speci men Type: BLOOD SPECIMEN Ordering Facility: [facility] Address: [address] [place], [place] [address] Performed By: #### Epifanio KCKMSandrine, , 2157-02, #### [facility] CLIA [id number] [address] [place], [place] [address] [place] Chloride [Moles/Vol] 104 mmol/L Normal 97-[address] [facility] Comment on above: Order Comment: Speci men Type: BLOOD SPECIMEN Ordering Facility: [facility] Address: [address] [place], [place] [address] Performed By: #### C LEILA, , 2157-02, #### [facility] CLIA [id number] [address] [place] [address] [place] CO2 [Moles/Vol] 27 mmol/L Normal 22-30 [facility] Comment on above: Order Comment: Speci men Type: BLOOD SPECIMEN Ordering Facility: [facility] Address: [address] [place] [address] Performed By: #### C LEILA, 09966-1, 2157-02, #### [facility] CLIA [id number] [address] [place] [address] [place] Creatinine [Mass/Vol] 0.85 mg/dL Normal 0.73-1.22 [facility] Comment on above: Order Comment: Speci men Type: BLOOD SPECIMEN Ordering Facility: [facility] Address: [address] [place] [address] Performed By: #### C LEILA, 86761-3, 2157-02, #### [facility] CLIA [id number] [address] [place] [address] [place] ESTIMATED GLOMERULAR FILTRATION RATE 95 mL/min/1.73m??? Normal >=60 [facility] Comment on above: Order Comment: Speci men Type: BLOOD SPECIMEN Ordering Facility: [facility] Address: [address] [place] [address] Result Comment: Anat mated Glomerular Filtration Rate (eGFR) is calculated using the 2020 CKD-EPI creatinine equation. This equation utilizes serum creatinine, sex, and age as parameters. The creatinine assay has traceable calibration to isotope dilution-mass spectrometry. Refer to KDIGO guidelines for clinical interpretation. In patients with unstable renal function, e.g. those with acute kidney injury, the eGFR may not accurately reflect actual GFR. Performed By: #### C LEILA, 48018-0, 2157-02, #### [facility] CLIA [id number] [address] [place] [address] [place] Glucose [Mass/Vol] 113 mg/dL High 74-99 [facility] Comment on above: Order Comment: Speci men Type: BLOOD SPECIMEN Ordering Facility: [facility] Address: [address] [place], [place] [address] Result Comment: The [place] Diabetes Association (ADA) provides guidance for cutoff values for fasting glucose and random glucose. The ADA defines fasting as no caloric intake for at least 8 hours. Fasting plasma glucose results between 100 to 125 mg/dL indicate increased risk for diabetes (prediabetes). Fasting plasma glucose results greater than or equal to 126 mg/dL meet the criteria for diagnosis of diabetes. In the absence of unequivocal hyperglycemia, results should be confirmed by repeat testing. In a patient with classic symptoms of hyperglycemia or hyperglycemic crisis, random plasma glucose results greater than or equal to 200 mg/dL meet the criteria for diagnosis of diabetes. Reference: Standards of Medical Care in Diabetes 2016, [place] Diabetes Association. Diabetes Care. 2016.39(Suppl 1). Performed By: #### Epifanio DEE, 44466-6, 2157-02, #### [facility] CLIA [id number] [address] [place] [address] [place] Potassium [Moles/Vol] 3.5 mmol/L Low 3.7-5.1 [facility] Comment on above: Order Comment: Cristina vazquez Type: BLOOD SPECIMEN Ordering Facility: [facility] Address: [address] [place], [place] [phone] Performed By: #### Epifanio DEE, 07438-1, 2157-02, #### [facility] CLIA [id number] [address] [place] [address] [place] Protein [Mass/Vol] 6.3 g/dL Normal 6.3-8.0 [facility] Comment on above: Order Comment: Maribeli george Type: BLOOD SPECIMEN Ordering Facility: [facility] Address: [address] [place], [place] [address] Performed By: #### Epifanio DEE, 83407-0, 2157-02, #### [facility] CLIA [id number] [address] [place] [address] [place] Sodium [Moles/Vol] 138 mmol/L Normal 136-144 [facility] Comment on above: Order Comment: Speci men Type: BLOOD SPECIMEN Ordering Facility: [facility] Address: [address] [place] [address] Performed By: #### Epifanio NELSONKMSandrine, 26208-4, 2157-02, #### [facility] CLIA [id number] [address] [place] [address] [place] Urea nitrogen [Mass/Vol] 15 mg/dL Normal 9-24 [facility] Comment on above: Order Comment: Speci men Type: BLOOD SPECIMEN Ordering Facility: [facility] Address: [address] [place] [address] Performed By: #### Epifanio NELSONKMSandrine, 80951-3, 2157-02, #### [facility] CLIA [id number] [address] [place] [address] [place] Magnesium SerPl-mCncon 02-25 Magnesium [Mass/Vol] 2.0 mg/dL Normal 1.7-2.[address] [facility] Comment on above: Order Comment: Speci men Type: BLOOD SPECIMEN Ordering Facility: [facility] Address: [address] [place], [place] [address] Performed By: #### Epifanio KCKMB, 17220-2, 2157-02, #### [facility] CLIA [id number] [address] [place] [address] [place] PT panel Coag (PPP)on 2021 INR Coag (PPP) [Relative time] 1.1 {INR} Normal 0.9-1.3 [facility] Comment on above: Order Comment: Speci men Type: BLOOD SPECIMEN Ordering Facility: [facility] Address: [address] [place] [phone] Result Comment: Babs min K Antagonist (VKA) Therapeutic Range: INR 2 to 3 (Target INR of 2.5) Note: For patients treated with VKA drugs, such as warfarin, the [place] College [employer] Chest Physicians 2012 Guideline recommends a therapeutic INR range of 2 to 3 (target INR of 2.5). This recommendation includes high-risk patients with antiphospholipid syndrome with previous arterial or venous thromboembolism, current-generation mechanical or bioprosthetic aortic heart valve replacement. Note: Patients with mechanical aortic valve replacement and additional risk factors for thromboembolic events (atrial fibrillation, previous thromboembolism, LV dysfunction, hypercoagulable conditions) or an older generation mechanical AVR (i.e., ball in-Cage) or any mechanical MVR should have a INR therapeutic range of 2.5 to 3.5 (target INR of 3). Clinton GH, et al. Chest 2012, 141:7S-47S Aureliano RA, et al. [facility] 2017, 70: 252-289 Performed By: #### C KCKMB, 23600-9, 2157-02, #### [facility] CLIA [id number] [address] [place] [address] [place] PT Coag (PPP) [Time] 12.0 s Normal 9.7-13.[address] [facility] Comment on above: Order Comment: Cristina vazquez Type: BLOOD SPECIMEN Ordering Facility: [facility] Address: [address] [place] [address] Performed By: #### C KCKMB, 17096-4, 2157-02, #### [facility] CLIA [id number] [address] [place] [address] [place] Phosphate SerPl-mCncon 02-25 Phosphate [Mass/Vol] 2.9 mg/dL Normal 2.7-4.[address] [facility] Comment on above: Order Comment: Cristina vazquez Type: BLOOD SPECIMEN Ordering Facility: [facility] Address: [address] [place], [place] [address] Performed By: #### C KCKMB, 60570-2, 2157-02, #### [facility] CLIA [id number] [address] [facility] [address] [place] XR CHEST 1V FRONTAL PORTon 0 02-25-2022 XR CHEST 1V FRONTAL PORT * * *Final Report* * * DATE OF EXAM: Feb 25 2022 1:09AM JIX [id number] - XR CHEST 1V FRONTAL PORT / PROCEDURE REASON: Chest pain, nonspecific * * * * Physician Interpretation * * * * EXAMINATION: CHEST RADIOGRAPH (PORTABLE SINGLE VIEW AP) Exam Date/Time: 02/25/2022 1:09 AM Clinical History: Chest pain, nonspecific MQ: [id number] Comparison: 1 day prior RESULT: Lines, tubes, and devices: None. Lungs and pleura: Mild bibasilar atelectasis is seen. There is no new focal lung consolidation. No substantial pleural effusion is seen. There is no pneumothorax. Cardiomediastinal silhouette: The cardiomediastinal silhouette is enlarged, stable. There is fusiform dilation of the aortic arch and the descending thoracic aorta is tortuous. The aortic dissection is better characterized on the CT dated 02/23/2022. Patient is status post median sternotomy. IMPRESSION: See result. Sales Route Driver: ANNMARIE Transcribe Date/Time: Feb 25 2022 5:51A Dictated by : KIMMY MADRID MD This examination was interpreted and the report reviewed and electronically signed by: ROLLY MEREDITH MD on Feb 25 2022 10:58AM EST [id number] Normal [facility] aPTT PPPon 02-25-2022 aPTT Coag (PPP) [Time] 25.9 s Normal 23.0-32.4 [facility] Comment on above: Order Comment: Speci men Type: BLOOD SPECIMEN Ordering Facility: [facility] Address: [address] [place] [address] Performed By: #### C KCKMB, 30368-6, 2157-02, #### [facility] CLIA [id number] [address] [place] [address] [place] CBC panel Auto (Bld)on 02-24 Erythrocyte distribution width (RBC) [Ratio] 14.1 % Normal 11.5-15.0 [facility] Comment on above: Order Comment: Speci men Type: BLOOD SPECIMEN Ordering Facility: [facility] Address: [address] [place] [address] Performed By: #### Epifanio KCKMB, 23741-7, 2157-02, #### [facility] CLIA [id number] [address] [place] [address] [place] Hematocrit (Bld) [Volume fraction] 38.1 % Low 39.0-51.0 [facility] Comment on above: Order Comment: Speci men Type: BLOOD SPECIMEN Ordering Facility: [facility] Address: [address] [place] [address] Performed By: #### Epifanio NELSONKMSandrine, 19465-9, 2157-02, #### [facility] CLIA [id number] [address] [place] [address] [place] Hemoglobin (Bld) [Mass/Vol] 12.4 g/dL Low 13.0-17.0 [facility] Comment on above: Order Comment: Speci men Type: BLOOD SPECIMEN Ordering Facility: [facility] Address: [address] [place], [place] [address] Performed By: #### Epifanio KCKMB, 58314-2, 2157-02, #### [facility] CLIA [id number] [address] [place] [address] [place] MCH (RBC) [Entitic mass] 29.2 pg Normal 26.0-34.0 [facility] Comment on above: Order Comment: Speci men Type: BLOOD SPECIMEN Ordering Facility: [facility] Address: [address] [place] [address] Performed By: #### C KCKMSandrine, 09729-3, 2157-02, #### [facility] CLIA [id number] [address] [place] [address] [place] MCHC (RBC) [Mass/Vol] 32.5 g/dL Normal 30.5-36.0 [facility] Comment on above: Order Comment: Speci men Type: BLOOD SPECIMEN Ordering Facility: [facility] Address: [address] [place] [address] Performed By: #### Epifanio KCKMSandrine, 13906-1, 2157-02, #### [facility] CLIA [id number] [address] [place] [address] [place] MCV (RBC) [Entitic vol] 89.9 fL Normal 80.0-100.0 [facility] Comment on above: Order Comment: Speci men Type: BLOOD SPECIMEN Ordering Facility: [facility] Address: [address] [place] [address] Performed By: #### Epifanio NELSONKMSandrine, 28888-3, 2157-02, #### [facility] CLIA [id number] [address] [place] [address] [place] Nucleated RBC (Bld) [#/Vol] 10*3/uL Normal <0.01 [facility] Comment on above: Order Comment: Speci men Type: BLOOD SPECIMEN Ordering Facility: [facility] Address: [address] [place] [address] Performed By: #### Epifanio NELSONKMSandrine, 53321-3, 2157-02, #### [facility] CLIA [id number] [address] [place] [address] [place] Platelet mean volume (Bld) [Entitic vol] 8.9 fL Low 9.0-12.7 [facility] Comment on above: Order Comment: Speci men Type: BLOOD SPECIMEN Ordering Facility: [facility] Address: [address] [place] [address] Performed By: #### Epifanio DEE, 25822-1, 2157-02, #### [facility] CLIA [id number] [address] [place] [address] [place] Platelets (Bld) [#/Vol] 198 10*3/uL Normal 150-400 [facility] Comment on above: Order Comment: Speci men Type: BLOOD SPECIMEN Ordering Facility: [facility] Address: [address] [place] [address] Performed By: #### Epifanio DEE, 30185-2, 2157-02, #### [facility] CLIA [id number] [address] [place] [address] [place] RBC (Bld) [#/Vol] 4.24 10*6/uL Normal 4.20-6.[address] [facility] Comment on above: Order Comment: Speci men Type: BLOOD SPECIMEN Ordering Facility: [facility] Address: [address] [place] [address] Performed By: #### Epifanio DEE, 67519-6, 2157-02, #### [facility] CLIA [id number] [address] [place] [address] [place] WBC (Bld) [#/Vol] 8.41 10*3/uL Normal 3.70-11.[address] [facility] Comment on above: Order Comment: Speci men Type: BLOOD SPECIMEN Ordering Facility: [facility] Address: [address] [place] [address] Performed By: #### Epifanio NELSONKMSandrine, 19834-8, 2157-02, #### [facility] CLIA [id number] [address] [place] [address] [place] CK TOTAL AND CK-MBon 022 CK [Catalytic activity/Vol] 102 U/L Normal 51-298 [facility] Comment on above: Order Comment: Speci men Type: BLOOD SPECIMEN Ordering Facility: [facility] Address: [address] [place] [address] Performed By: #### C KCKMB, 36908-4, 2157-02, #### [facility] CLIA [id number] [address] [place] [address] CK.MB [Mass/Vol] 2.8 ng/mL Normal <7.8 [facility] Comment on above: Order Comment: Speci men Type: BLOOD SPECIMEN Ordering Facility: [facility] Address: [address] [place] [address] Performed By: #### C KCKMB, 89093-6, 2157-02, #### [facility] CLIA [id number] [address] [place] [address] CK.MB [Ratio] 270 {ratio} Normal <=4.0 [facility] Comment on above: Order Comment: Speci men Type: BLOOD SPECIMEN Ordering Facility: [facility] Address: [address] [place] [address] Performed By: #### C KCKMB, 57462-4, 2157-02, #### [facility] CLIA [id number] [address] [place] [address] OF [facility] CONSULT PROGon 02-24-2022 CONSULT PROG HNO ID: [id number] Author: Jeromy Harris MD Service: Vascular Surgery Author Type: Resident Type: Consult Progress Note Filed: 02/24/2022 8:00 AM Note Text: [facility] VASCULAR SURGERY CONSULT PROGRESS NOTE Service Date: 02/24/2022dmit Date: 02/23/2022ervice Time: 7:30 AM LOS: 1 day(s) Primary Service: Vascular Surgery Vascular Physician: Jose Howell MD Interval Events/Issues: 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 Good impulse control overnight with Nipride GTT currently @ 60 No symptomatic/laboratory evidence of malperfusion States right shoulder/back pain minimal/resolved but with residual BANKS Subjective Current Facility-Administered Medications Medication Dose Route Frequency - sodium chloride 0.9 % (flush) 2-10 mL (BD POSIFLUSH) 2-10 mL INTRAVENOUS q 12 H - NaCl 0.9% iv flush bag 20 mL INTRAVENOUS PRN - sodium chloride 0.9 % (flush) 3-5 mL (BD POSIFLUSH) 3-5 mL INTRAVENOUS q 12 H - sodium chloride 0.9 % (flush) 2-10 mL (BD POSIFLUSH) 2-10 mL INTRAVENOUS DIRECTED PRN And - perflutren lipid microspheres 1.1 mg/mL 1.3 mL injection (DEFINITY) 1.3 mL INTRAVENOUS DIRECTED PRN - atorvastatin 40 mg tab(s) (LIPITOR) 40 mg ORAL DAILY - ezetimibe 10 mg tab(s) (ZETIA) 10 mg ORAL DAILY - pantoprazole DR 40 mg tab(s) (PROTONIX) 40 mg ORAL DAILY - levothyroxine 150 mcg (SYNTHROID) 150 mcg ORAL BEFORE BREAKFAST DAILY - amLODIPine 10 mg tab(s) (NORVASC) 10 mg ORAL DAILY - olmesartan 40 mg tab(s) (BENICAR) 40 mg ORAL DAILY - triamterene-hydroCHLOROthi azide 37.5-25 mg 1 tablet (MAXZIDE-25) 1 tablet ORAL DAILY - tiZANidine 4 mg tab(s) (ZANAFLEX) 4 mg ORAL TID PRN - polyethylene glycol 3350 17 g packet (MIRALAX, GLYCOLAX) 17 g ORAL DAILY PRN - nitroprusside 50 mg in D5W 250 mL (NIPRIDE) 10-200 mcg/min INTRAVENOUS CONTINUOUS - potassium chloride iv piggyback 20 mEq/100 mL 20 mEq INTRAVENOUS PRN - potassium chloride ER 40-120 mEq tab(s) (K-DUR, KLOR-CON) 40-120 mEq ORAL PRN - magnesium oxide 200 mg tab(s) (MAG-OX) 200 mg ORAL PRN - magnesium sulfate 1 g in D5W 100 mL 1 g INTRAVENOUS PRN - magnesium sulfate 2-8 g in sterile water 50 ml 2-8 g INTRAVENOUS PRN - tamsulosin 0.4 mg cap(s) (FLOMAX) 0.4 mg ORAL DAILY - carvedilol 6.25 mg tab(s) (COREG) 6.25 mg ORAL BID w MEALS Medication and Non-Pharmacologic VTE Prophylaxis/Anticoagulants 02/23/22 1130 vte current anticoag therapy (fl,oh) VTE Prophylaxis: VTE prophylaxis appropriate ALLERGIES No Known Allergies Objective PHYSICAL EXAM: Patient Vitals for the past 24 hrs: BP Temp Temp src Pulse Resp SpO2 Height Weight 02/24/22 0700 135/74 ? ? (!) 59 18 94 % ? ? 02/24/22 0656 ? ? ? (!) 59 14 94 % ? ? 02/24/22 0630 115/70 ? ? (!) 59 15 98 % ? ? 02/24/22 0600 104/58 ? ? (!) 59 19 94 % ? ? 02/24/22 0530 132/66 ? ? (!) 58 20 96 % ? ? 02/24/22 0500 130/65 ? ? (!) 58 14 94 % ? ? 02/24/22 0430 122/57 ? ? (!) 58 15 93 % ? ? 02/24/22 0400 118/59 ? ? (!) 58 14 95 % ? ? 02/24/22 0343 ? ? ? (!) 58 17 92 % ? ? 02/24/22 0330 117/61 ? ? (!) 58 15 91 % ? ? 02/24/22 0300 113/78 36.6 ?C (97.9 ?F) Oral (!) 131 (!) 47 93 % ? ? 02/24/22 0230 114/57 ? ? (!) 58 12 92 % ? ? 02/24/22 0222 ? ? ? (!) 58 14 95 % ? ? 02/24/22 0200 113/56 ? ? (!) 59 17 90 % ? ? 02/24/22 0130 112/55 ? ? (!) 59 16 93 % ? ? 02/24/22 0100 133/60 ? ? (!) 59 15 94 % ? ? 02/24/22 0042 ? ? ? (!) 59 12 95 % ? ? 02/24/22 0030 142/74 ? ? (!) 59 16 96 % ? ? 02/24/22 0019 ? ? ? (!) 59 20 95 % ? ? 02/24/22 0000 141/65 ? ? (!) 59 20 95 % ? ? 02/23/22 2330 111/58 ? ? (!) 59 21 97 % ? ? 02/23/22 2300 126/63 36.9 ?C (98.4 ?F) Oral (!) 59 19 95 % ? ? 02/23/22 2230 119/59 ? ? 60 12 97 % ? ? 02/23/22 2200 124/60 ? ? 60 21 92 % ? ? 02/23/22 2130 127/60 ? ? 60 19 93 % ? ? 02/23/22 2100 126/64 ? ? 60 23 95 % ? ? 02/23/22 2030 113/56 ? ? 60 22 94 % ? ? 02/23/22 2000 160/77 ? ? (!) 59 21 93 % ? ? 02/23/22 1930 135/61 ? ? (!) 59 17 95 % ? ? 02/23/22 1900 134/64 36.7 ?C (98.1 ?F) Oral (!) 59 24 95 % ? ? 02/23/22 1830 162/76 ? ? (!) 59 20 95 % ? ? 02/23/22 1800 170/81 ? ? 82 27 93 % ? ? 02/23/22 1730 157/82 ? ? (!) 59 21 94 % ? ? 02/23/22 1700 152/78 ? ? 60 18 95 % ? ? 02/23/22 1630 122/63 ? ? 60 20 94 % ? ? 02/23/22 1600 127/66 ? ? 60 20 93 % ? ? 02/23/22 1547 ? ? ? 60 18 94 % ? ? 02/23/22 1530 131/64 ? ? 60 21 95 % ? ? 02/23/22 1500 119/57 ? ? 60 21 92 % ? ? 02/23/22 1430 123/60 ? ? 60 29 94 % ? ? 02/23/22 1400 124/58 ? ? 60 16 94 % ? ? 02/23/22 1330 103/57 ? ? 60 30 96 % ? ? 02/23/22 1302 ? ? ? 61 16 93 % ? ? 02/23/22 1300 107/51 ? ? 61 30 95 % ? ? 02/23/22 1249 99/53 ? 02/23/22 1240 99/53 ? ? 60 22 92 % ? ? 02/23/22 1238 134/58 ? 02/23/22 1233 138/83 ? ? (!) 59 21 93 % ? ? 02/23/22 1230 145/92 ? ? (!) 58 25 94 % ? ? 02/23/22 1225 161/98 ? ? (!) 58 26 97 % ? ? 02/23/22 1220 154/104 ? ? (!) 58 (!) 34 97 % 195.6 cm (6' 5 ) (!) 141.8 kg (312 lb 9.8 oz) Intake/Output (more content not included)... Normal [facility] Comprehensive metabolic 2000 panelon 02-24-2022 Albumin [Mass/Vol] 3.6 g/dL Low 3.9-4.9 [facility] Comment on above: Order Comment: Speci men Type: BLOOD SPECIMEN Ordering Facility: [facility] Address: [address] [place] [address] Performed By: #### Epifanio NELSONKMSandrine, 25890-4, 2157-02, #### [facility] CLIA [id number] [address] [place] [address] [place] ALP [Catalytic activity/Vol] 67 U/L Normal 38-113 [facility] Comment on above: Order Comment: Speci men Type: BLOOD SPECIMEN Ordering Facility: [facility] Address: [address] [place] [address] Performed By: #### Epifanio NELSONKMSandrine, 29312-3, 2157-02, #### [facility] CLIA [id number] [address] [place] [address] [place] ALT [Catalytic activity/Vol] 18 U/L Normal 10-54 [facility] Comment on above: Order Comment: Speci men Type: BLOOD SPECIMEN Ordering Facility: [facility] Address: [address] [place] [address] Performed By: #### Epifanio NELSONKMSandrine, 53452-3, 2157-02, #### [facility] CLIA [id number] [address] [place], [place] [address] [place] Anion gap [Moles/Vol] 13 mmol/L Normal 9-18 [facility] Comment on above: Order Comment: Speci men Type: BLOOD SPECIMEN Ordering Facility: [facility] Address: [address] [place], [place] [address] Performed By: #### Epifanio KCKMSandrine, 38898-0, 2157-02, #### [facility] CLIA [id number] [address] [place] [address] [place] AST [Catalytic activity/Vol] 18 U/L Normal 14-40 [facility] Comment on above: Order Comment: Speci men Type: BLOOD SPECIMEN Ordering Facility: [facility] Address: [address] [place], [place] [address] Performed By: #### Epifanio DEE, 81773-7, 2157-02, #### [facility] CLIA [id number] [address] [place] [address] [place] Bilirubin [Mass/Vol] 0.6 mg/dL Normal 0.2-1.[address] [facility] Comment on above: Order Comment: Speci men Type: BLOOD SPECIMEN Ordering Facility: [facility] Address: [address] [place] [address] Performed By: #### Epifanio NELSONKMSandrine, 50901-7, 2157-02, #### [facility] CLIA [id number] [address] [place], [place] [address] [place] Calcium [Mass/Vol] 9.2 mg/dL Normal 8.5-10.2 [facility] Comment on above: Order Comment: Speci men Type: BLOOD SPECIMEN Ordering Facility: [facility] Address: [address] [place], [place] [address] Performed By: #### Epifanio NELSONNICOLLE, , 2157-02, #### [facility] CLIA [id number] [address] [place], [place] [address] [place] Chloride [Moles/Vol] 104 mmol/L Normal 97-[address] [facility] Comment on above: Order Comment: Speci men Type: BLOOD SPECIMEN Ordering Facility: [facility] Address: [address] [place], [place] [address] Performed By: #### C KCKMB, 70506-6, 2157-02, #### [facility] CLIA [id number] [address] [place] [address] [place] CO2 [Moles/Vol] 24 mmol/L Normal 22-30 [facility] Comment on above: Order Comment: Speci men Type: BLOOD SPECIMEN Ordering Facility: [facility] Address: [address] [place] [address] Performed By: #### C KCKMSandrine, 18415-0, 2157-02, #### [facility] CLIA [id number] [address] [place] [address] [place] Creatinine [Mass/Vol] 0.82 mg/dL Normal 0.73-1.22 [facility] Comment on above: Order Comment: Speci men Type: BLOOD SPECIMEN Ordering Facility: [facility] Address: [address] [place], [place] [address] Performed By: #### C KCKMB, 07335-1, 2157-02, #### [facility] CLIA [id number] [address] [place] [address] [place] ESTIMATED GLOMERULAR FILTRATION RATE 96 mL/min/1.73m??? Normal >=60 [facility] Comment on above: Order Comment: Speci men Type: BLOOD SPECIMEN Ordering Facility: [facility] Address: [address] [place], [place] [address] Result Comment: Anat mated Glomerular Filtration Rate (eGFR) is calculated using the 2020 CKD-EPI creatinine equation. This equation utilizes serum creatinine, sex, and age as parameters. The creatinine assay has traceable calibration to isotope dilution-mass spectrometry. Refer to KDIGO guidelines for clinical interpretation. In patients with unstable renal function, e.g. those with acute kidney injury, the eGFR may not accurately reflect actual GFR. Performed By: #### Epifanio DEE, 75741-3, 2157-02, #### [facility] CLIA [id number] [address] [place] [address] [place] Glucose [Mass/Vol] 114 mg/dL High 74-99 [facility] Comment on above: Order Comment: Cristina vazquez Type: BLOOD SPECIMEN Ordering Facility: [facility] Address: [address] [place], [place] [address] Result Comment: The [place] Diabetes Association (ADA) provides guidance for cutoff values for fasting glucose and random glucose. The ADA defines fasting as no caloric intake for at least 8 hours. Fasting plasma glucose results between 100 to 125 mg/dL indicate increased risk for diabetes (prediabetes). Fasting plasma glucose results greater than or equal to 126 mg/dL meet the criteria for diagnosis of diabetes. In the absence of unequivocal hyperglycemia, results should be confirmed by repeat testing. In a patient with classic symptoms of hyperglycemia or hyperglycemic crisis, random plasma glucose results greater than or equal to 200 mg/dL meet the criteria for diagnosis of diabetes. Reference: Standards of Medical Care in Diabetes 2016, [place] Diabetes Association. Diabetes Care. 2016.39(Suppl 1). Performed By: #### Epifanio NELSONKMSandrine, 67031-3, 2157-02, #### [facility] CLIA [id number] [address] [place] [address] [place] Potassium [Moles/Vol] 3.5 mmol/L Low 3.7-5.1 [facility] Comment on above: Order Comment: Cristina vazquez Type: BLOOD SPECIMEN Ordering Facility: [facility] Address: [address] [place] [address] Performed By: #### Epifanio DEE, , 2157-02, #### [facility] CLIA [id number] [address] [place], [place] [address] [place] Protein [Mass/Vol] 6.5 g/dL Normal 6.3-8.0 [facility] Comment on above: Order Comment: Speci men Type: BLOOD SPECIMEN Ordering Facility: [facility] Address: [address] [place], [place] [address] Performed By: #### C KCKMB, 32952-8, 2157-02, #### [facility] CLIA [id number] [address] [place] [address] [place] Sodium [Moles/Vol] 141 mmol/L Normal 136-144 [facility] Comment on above: Order Comment: Speci men Type: BLOOD SPECIMEN Ordering Facility: [facility] Address: [address] [place], [place] [address] Performed By: #### C KCKMB, , 2157-02, #### [facility] CLIA [id number] [address] [place] [address] [place] Urea nitrogen [Mass/Vol] 14 mg/dL Normal 9-24 [facility] Comment on above: Order Comment: Speci men Type: BLOOD SPECIMEN Ordering Facility: [facility] Address: [address] [place], [place] [address] Performed By: #### C KCKMB, , 2157-02, #### [facility] CLIA [id number] [address] [place] [address] [place] Magnesium SerPl-mCncon 02-24 Magnesium [Mass/Vol] 2.3 mg/dL Normal 1.7-2.[address] [facility] Comment on above: Order Comment: Speci men Type: BLOOD SPECIMEN Ordering Facility: [facility] Address: [address] [place], [place] [address] Performed By: #### C KCKMB, 91235-4, 2157-6, 43971-5 #### [facility] CLIA [id number] [address] [place] [address] [place] PT panel Coag (PPP)on 2021 INR Coag (PPP) [Relative time] 1.2 {INR} Normal 0.9-1.3 [facility] Comment on above: Order Comment: Specbranden vazquez Type: BLOOD SPECIMEN Ordering Facility: [facility] Address: [address] [place] [address] Result Comment: Babs min K Antagonist (VKA) Therapeutic Range: INR 2 to 3 (Target INR of 2.5) Note: For patients treated with VKA drugs, such as warfarin, the [place] College [employer] Chest Physicians 2012 Guideline recommends a therapeutic INR range of 2 to 3 (target INR of 2.5). This recommendation includes high-risk patients with antiphospholipid syndrome with previous arterial or venous thromboembolism, current-generation mechanical or bioprosthetic aortic heart valve replacement. Note: Patients with mechanical aortic valve replacement and additional risk factors for thromboembolic events (atrial fibrillation, previous thromboembolism, LV dysfunction, hypercoagulable conditions) or an older generation mechanical AVR (i.e., ball in-Cage) or any mechanical MVR should have a INR therapeutic range of 2.5 to 3.5 (target INR of 3). Clinton GH, et al. Chest 2012, 141:7S-47S Aureliano RA, et al. [facility] 2017, 70: 252-289 Performed By: #### 3 4528-0, 37921-6 #### [facility] CLIA [id number] [address] [place] [address] [place] PT Coag (PPP) [Time] 12.1 s Normal 9.7-13.[address] [facility] Comment on above: Order Comment: Cristina vazquez Type: BLOOD SPECIMEN Ordering Facility: [facility] Address: [address] [place], [place] [address] Performed By: #### 3 4528-0, 95300-3 #### [facility] CLIA [id number] [address] [place] [address] [place] Phosphate SerPl-mCncon 02-24 Phosphate [Mass/Vol] 2.9 mg/dL Normal 2.7-4.[address] [facility] Comment on above: Order Comment: Speci men Type: BLOOD SPECIMEN Ordering Facility: [facility] Address: [address] [place] [address] Performed By: #### C KCKMB, 40006-3, 2156-6, 92144-3 #### [facility] CLIA [id number] [address] [place] [address] [place] TROPONIN Ton 02-24-2022 Troponin T.cardiac [Mass/Vol] ug/L Normal 0.000-0.02 9 [facility] Comment on above: Order Comment: Speci men Type: BLOOD SPECIMEN Ordering Facility: [facility] Address: [address] [place] [address] Performed By: #### C KCKMB, 42241-6, 2157-02, #### [facility] CLIA [id number] [address] [place] [address] [place] XR CHEST 1V FRONTAL PORTon 0 02-24-2022 XR CHEST 1V FRONTAL PORT * * *Final Report* * * DATE OF EXAM: Feb 24 2022 1:12AM SHAHANA 5376 - XR CHEST 1V FRONTAL PORT / PROCEDURE REASON: Chest pain, nonspecific * * * * Physician Interpretation * * * * EXAMINATION: CHEST RADIOGRAPH (PORTABLE SINGLE VIEW AP) Exam Date/Time: 02/24/2022 1:12 AM Clinical History: Chest pain, nonspecific MQ: [id number] Comparison: 1 day prior RESULT: Lines, tubes, and devices: None. Lungs and pleura: No new focal consolidation. Interval development of mild pulmonary edema. No pleural effusions or pneumothorax. Cardiomediastinal silhouette: Stable enlarged cardiomediastinal silhouette. Other: . IMPRESSION: See result. Sales Route Driver: ANNMARIE Transcribe Date/Time: Feb 24 2022 5:51A Dictated by : KIMMY MADRID MD This examination was interpreted and the report reviewed and electronically signed by: JAMIN PEREZ MD on Feb 24 2022 7:23AM EST [id number] Normal [facility] aPTT PPPon 02-24-2022 aPTT Coag (PPP) [Time] 28.3 s Normal 23.0-32.4 Cl [facility] Comment on above: Order Comment: Speci men Type: BLOOD SPECIMEN Ordering Facility: [facility] Address: [address] [place] [address] Performed By: #### 3 4528-0, 62429-2 #### [facility] CLIA [id number] [address] [place] [address] [place] Activated partial thrombopla stin time (aPTT) in platelet poor plasma by coagulation aOrdered By: Sujit White on 02-23-2022 aPTT Coag (PPP) [Time] 37.3 s 25.1-36.5 [facility] Albumin [Mass/volume] in Ser um or PlasmaOrdered By: Sujit White on 02-23-2022 Albumin [Mass/Vol] 3.9 g/dL 3.2-5.5 [facility] Basophils Auto (Bld) [#/Vol] Ordered By: Sujit White on 02-23-2022 Basophils (Bld) [#/Vol] 0.0 10*3/uL 0.0-0.2 [facility] Basophils/100 WBC Auto (Bld) Ordered By: Sujit White on 02-23-2022 Basophils/100 WBC (Bld) 0.6 % [facility] Blood hemoglobin measurement (mass/volume)Ordered By: Sujit White on 02-23-2022 Hemoglobin (Bld) [Mass/Vol] 14.3 g/dL 13.0-17.0 [facility] Blood leukocytes automated c ount (number/volume)Ordered By: Sujit White on 02-23-2022 WBC (Bld) [#/Vol] 8.4 10*3/uL 4.5-11.0 [facility] CBC panel Auto (Bld)on 02-23 Erythrocyte distribution width (RBC) [Ratio] 13.8 % Normal 11.5-15.0 [facility] Comment on above: Order Comment: Speci men Type: BLOOD SPECIMEN Ordering Facility: [facility] Address: [address] [place] [address] Performed By: #### Epifanio DEE, 09998-1, 2157-02, #### [facility] CLIA [id number] [address] [place] [address] [place] Hematocrit (Bld) [Volume fraction] 42.8 % Normal 39.0-51.0 [facility] Comment on above: Order Comment: Speci men Type: BLOOD SPECIMEN Ordering Facility: [facility] Address: [address] [place] [address] Performed By: #### Epifanio DEE, 43305-6, 2157-02, #### [facility] CLIA [id number] [address] [place] [address] [place] Hemoglobin (Bld) [Mass/Vol] 14.0 g/dL Normal 13.0-17.0 [facility] Comment on above: Order Comment: Speci men Type: BLOOD SPECIMEN Ordering Facility: [facility] Address: [address] [place], [place] [address] Performed By: #### Epifanio DEE, 54872-8, 2157-02, #### [facility] CLIA [id number] [address] [place] [address] [place] MCH (RBC) [Entitic mass] 29.2 pg Normal 26.0-34.0 [facility] Comment on above: Order Comment: Speci men Type: BLOOD SPECIMEN Ordering Facility: [facility] Address: [address] [place], [place] [address] Performed By: #### Epifanio DEE, 79392-6, 2157-02, #### [facility] CLIA [id number] [address] [place] [address] [place] MCHC (RBC) [Mass/Vol] 32.7 g/dL Normal 30.5-36.0 [facility] Comment on above: Order Comment: Speci men Type: BLOOD SPECIMEN Ordering Facility: [facility] Address: [address] [place] [address] Performed By: #### C KCKMB, 98312-6, 2157-02, #### [facility] CLIA [id number] [address] [place] [address] [place] MCV (RBC) [Entitic vol] 89.2 fL Normal 80.0-100.0 [facility] Comment on above: Order Comment: Speci men Type: BLOOD SPECIMEN Ordering Facility: [facility] Address: [address] [place] [address] Performed By: #### C KCKMB, 05189-5, 2157-02, #### [facility] CLIA [id number] [address] [place] [address] [place] Nucleated RBC (Bld) [#/Vol] 10*3/uL Normal <0.01 [facility] Comment on above: Order Comment: Speci men Type: BLOOD SPECIMEN Ordering Facility: [facility] Address: [address] [place], [place] [address] Performed By: #### C KCKMB, 01596-1, 2157-02, #### [facility] CLIA [id number] [address] [place] [address] [place] Platelet mean volume (Bld) [Entitic vol] 9.0 fL Normal 9.0-12.7 [facility] Comment on above: Order Comment: Speci men Type: BLOOD SPECIMEN Ordering Facility: [facility] Address: [address] Performed By: #### Epifanio DEE, 66111-4, 2157-02, #### [facility] CLIA [id number] [address] [place] [address] [place] Platelets (Bld) [#/Vol] 201 10*3/uL Normal 150-400 [facility] Comment on above: Order Comment: Speci men Type: BLOOD SPECIMEN Ordering Facility: [facility] Address: [address] [place] [address] Performed By: #### Epifanio DEE, 24263-3, 2157-02, #### [facility] CLIA [id number] [address] [place] [address] [place] RBC (Bld) [#/Vol] 4.80 10*6/uL Normal 4.20-6.[address] [facility] Comment on above: Order Comment: Speci men Type: BLOOD SPECIMEN Ordering Facility: [facility] Address: [address] [place], [place] [address] Performed By: #### Epifanio DEE, 46574-4, 2157-02, #### [facility] CLIA [id number] [address] [place] [address] [place] WBC (Bld) [#/Vol] 9.21 10*3/uL Normal 3.70-11.[address] [facility] Comment on above: Order Comment: Speci men Type: BLOOD SPECIMEN Ordering Facility: [facility] Address: [address] [place], [place] [id number] Performed By: #### Epifanio DEE, 38626-5, 2157-02, #### [facility] CLIA [id number] [address] [place] [address] [place] CK TOTAL AND CK-MBon 022 CK [Catalytic activity/Vol] 122 U/L Normal 51-298 [facility] Comment on above: Order Comment: Speci men Type: BLOOD SPECIMEN Ordering Facility: [facility] Address: [address] [address] [place] [id number] Performed By: #### C KCKMB, , 2157-02, #### [facility] CLIA [id number] [address] [place] [address] [place] CK.MB [Mass/Vol] 3.4 ng/mL Normal <7.8 [facility] Comment on above: Order Comment: Speci men Type: BLOOD SPECIMEN Ordering Facility: [facility] Address: [address] [place] [address] Performed By: #### C KCKMB, 49993-3, 2157-02, #### [facility] CLIA [id number] [address] [place] [address] [place] CK.MB [Ratio] 280 {ratio} Normal <=4.0 [facility] Comment on above: Order Comment: Speci men Type: BLOOD SPECIMEN Ordering Facility: [facility] Address: [address] [place] [address] Performed By: #### C KCKMB, 49906-7, 2157-02, #### [facility] CLIA [id number] [address] [place] [address] [place] CK [Catalytic activity/Vol] 171 U/L Normal 51-298 [facility] Comment on above: Order Comment: Speci men Type: BLOOD SPECIMEN Ordering Facility: [facility] Address: [address] [place] [address] Result Comment: Resu lts may be falsely increased due to interference from hemolysis. Suggest reorder as clinically indicated. Performed By: #### 3 4528-0, 92326-6 #### [facility] CLIA [id number] [address] [place] [address] [place] CK.MB [Mass/Vol] 4.2 ng/mL Normal <7.8 [facility] Comment on above: Order Comment: Specbranden vazquez Type: BLOOD SPECIMEN Ordering Facility: [facility] Address: [address] [place] [address] Performed By: #### 3 4528-0, 39808-0 #### [facility] CLIA [id number] [address] [place] [address] CK.MB [Ratio] 250 {ratio} Normal <=4.0 [facility] Comment on above: Order Comment: Speci men Type: BLOOD SPECIMEN Ordering Facility: [facility] Address: [address] [place] [address] Performed By: #### 3 4528-0, 51477-0 #### [facility] CLIA [id number] [address] [place] [address] CNCRITCRon 02-23-2022 CNCRITCR Critical Care Transp ort (CCT) -- DINESHPAIGE DOSS ([id number]) 1955 M Date Time Provider Department 02/23/22 FABIENNE ARMENDARIZ During your visit today, we recorded the following information about you: Fabienne Armendariz APRN.JASMIN 02/23/2022 1:42 PM Signed [facility] CRITICAL CARE TRANSPORT PROGRESS NOTE Patient Name: Paige Montiel Service Date: 02/23/2022 Referring Provider: Sujit White Accepting Provider: Felice Zamora MD Referring Facility: [facility] Accepting Facility: [facility] MAIN SUBJECTIVE Chief Complaint: Aortic Dissection Reason for Transfer: Patient being transferred for emergent subspecialty care and management not available at the sending facility. History of Present Illness: The following history is what was known to CCT team at time of given care and summarized through review of available medical records, patient/family interview and from referring provider and nursing staff. Paige Montiel is a 66 year old male with a history significant for prior aortic dissection [place]/p repair (unknown details[place] [facility], atrial fibrillation/flutter on Eliquis s/p prior ablation, HTN, HLD, hypothyroidism, BPH, GERD, remote L4 spinal cord injury, and left knee replacement who presented to the referring facility for evaluation of right subscapular pain. Patient reports that he has experienced pain under his right scapula for the last 5 days. Denied chest pain, shortness of breath or numbness or tingling in extremities. The patient was seen by his PCP for a wellness check prompting an outpatient CT chest that revealed an aortic dissection. The patient was notified and presented to the ED for further evaluation and management. On arrival to the ED he was evaluated with a CTA chest that revealed an aortic dissection from proximal to the great vessels through the arch, descending aorta, and down the left common iliac and into the SMA. Lab work was remarkable for a coagulopathy (INR 1.7). The patient was hypertensive and placed on an Esmolol infusion with some improvement. At this time, the provider managing the patient requested transfer to [facility] for tertiary and/or quaternary services not available at the referring facility. The provider managing the patient requested the [facility] Critical Care Transport Team to transport and treat the patient for the purpose of tertiary care, evaluation, and management of the patient?s emergent medical condition. Patient condition at time of exam was: critically ill. Due to the unique circumstances of the patient, it was determined that this was the closest, most appropriate facility by referring provider. Air medical transport was requested to reduce the [id number] time, 15 minutes by air vs. approximately 75 minutes by ground, with the potential for increased ground transport time secondary to: distance between facilities and the patient's condition requiring an emergent procedure or evaluation not available at the referring facility and distance between facilities and ground round transport time would be excessive and detrimental to patient given current clinical status ROS: A complete review of systems was performed and is negative except as noted in [place] PAST HISTORY: Aortic dissection s/p repair (unknown details) [place] [facility] [place], atrial fibrillation/flutter on Eliquis s/p prior ablation, HTN, HLD, hypothyroidism, BPH, GERD, remote L4 spinal cord injury, and left knee replacement ALLERGIES: Patient has no known allergies. SOCIAL HISTORY: Denies smoking or illicit drug use FAMILY HISTORY: family history is not on file. HOME MEDICATIONS: Eliquis, atorvastatin, Flomax, Amlodipine, Protonix, Maxzide, Benicar, Zetia, Levothyroxine, potassium Significant Medications Administered by Referring Facility: Esmolol infusion OBJECTIVE Recent Labs, Diagnostics AND Procedure Reports reviewed as available. Referring Facility Labs CBC: WBC 8.4k, Hgb 14.3, Plt 216K Coags: INR 1.7 Chemistry: Na 139, K 3.6, Cl 105, CO2 25, BUN 11, SCr 0.89, Glu 128 Cardiac Enzymes: HS Trop 12 , BNP 25 Diagnostics AND Procedure Reports ECG: Atrial flutter with non-specific ST T wave abnormalities, Rate 61, QRS 74, QT 416, QTc 418 CXR: Report reviewed - Cardiomegaly, tortuous aorta CTA Chest: Report reviewed - Aortic dissection of the ascending aorta proximal to the great vessel through the aortic arch, descending aorta down through the left common iliac and including the SMA. Great vessels coming off the true lumen, left renal coming off the false lumen. Procedure/Operative Reports: None Invasive Lines/Devices/Tubes Placed by Referring Facility: PIV x 2 PHYSICAL EXAM: Upon CCT Arrival at Referring Facility Vital Signs: BP 155/81mmHg, HR 61bpm, RR 18, SpO2 100% O (more content not included)... Normal [facility] CONFIRM BLOOD TYPEon 022 ABO A Normal [facility] Comment on above: Order Comment: Speci men Type: BLOOD SPECIMEN Ordering Facility: [facility] Address: [address] [place] [address] Performed By: #### 3 4528-0, 05901-8 #### [facility] CLIA [id number] [address] [place] [address] [place] Rh Nom (Bld) Positive Normal [facility] Comment on above: Order Comment: Speci men Type: BLOOD SPECIMEN Ordering Facility: [facility] Address: [address] [place] [address] Performed By: #### 3 4528-0, 44641-9 #### [facility] CLIA [id number] [address] [place], [place] [address] [facility] [place] CONSULTon 02-23-2022 CONSULT HNO ID: [id number] Author: Jose Howell MD Service: Vascular Surgery Author Type: Physician Type: Consults Filed: 02/24/2022 10:47 AM Note Text: [facility] VASCULAR [facility]GERY INITIAL CONSULT Service Date: 02/23/2022 Admit Date: 02/23/2022 Service Time: 2:19 PM LOS: 0 Requesting Provider: [facility] ICU Vascular Physician: Jose Howell MD Subjective Chief Complaint: Type A dissection HPI: This is a 66 year old male with the following PMHx: - Michael Type A aortic dissection in 2012 (s/p repair 02/16/2013 in [place]), not getting follow-up CT scans or Echo - Hypertension (relatively controlled with readings usually 120s systolic at home) on Amlodipine 10 mg daily, Olmesartan 40 mg daily, triamterene-HCTZ 37.5-25 mg daily. - Atrial fibrillation (on Apixaban 5 mg BID) - Hyperlipidemia on Atorvastatin 40 mg daily and Ezetimibe 19 ng daily - Hypothyroidism on Levothyroxine 150 mcg daily ? Patient transferred to [facility] Main CICU from [facility] in [place] on 02/23/2022 due to concerns for acute Type A aortic dissection. ? Patient was in his usual state of health until 02/18/2022 when he lifted a heavy object and did a twisting movement that caused him to have right sided back pain below the right scapula and involving the right shoulder. Pain was deep muscular in nature and exacerbated by movement and twisting. He went to his PCP who ordered a CXR that showed a widened mediastinum which prompted him to order a CT scan of the chest that showed aortic dissection and aneurysm so he was told to go to the ED, he went to the ED in [facility] where he got a CTA of the chest which showed: ? Repaired type-A Aortic dissection: [place] about 4.7 cm; Intact surgical graft ascending aorta; residual dissection beyond graft, proximal descending about 4.4 cm abdominal aorta with poor contrast enhancement; no interval change; no leakage/rupture, no pericardial effusion ? CT scan report from 02/16/2013: - Aortic Dissection involving the ascending, arch, and descending aorta terminating at some level below the diaphragm. The [place] and new lumen are approximately 50:50 with flow in both lumens. ? Patient started on treatment for acute Aortic Dissection at OSH and transferred to out CICU for further evaluation and management. ? On interview here at [facility] he reports feeling well, denies any chest pain or interscapular pain, still has mild right sided shoulder and scapular region pain with movement, shortness of breath, orthopnea, leg swelling, neck pain, headache, arm pain or numbness, abdominal pain, leg pain, numbness or weakness, decrease in urine output, blood in urine. Remaining ROS is unremarkable. ? Patient has family history of Aortic Dissection (father of aortic dissection) but no history of Marfan or connective tissue disorder. Location: ascending aorta Quality: stable Severity: moderate Duration: unknown PAST MEDICAL HISTORY Diagnosis Date - Ascending aortic dissection (HCC) 02/23/2022 Assessment: - History of [place] Type A s/p repair in 2012 - Current presentation does NOT seem to be consistent with an acute dissection - Complications present: None - Risk factors for higher mortality w/ Type A: advanced age, prior cardiac surgery, hypotension or shock, pulse deficit, cardiac tamponade, and ischemic ECG changes. Patient has history of prior sternotomy for the repair in 2012 - Essential hypertension 02/23/2022 At home on Amlodipine 10 mg daily, Olmesartan 40 mg daily, triamterene-HCTZ 37.5-25 mg daily Currently holding home medications in the setting of concern for dissection and will control with IV SNP pending surgical evaluation - History of hypothyroidism 02/23/2022 - No signs or symptoms of hyper or hypothyroidism - On 150 mcg of levothyroxine daily Plan: Continue home levothyroxine - Hypothyroidism 02/23/2022 - Longstanding persistent atrial fibrillation (HCC) 06/20/2019 - Known history of atrial fibrillation since 2012 - s/p multiple DCCD last in 2015? - s/p ablation in 2014 - Not on rate control or antiarrythmic. - On Apixaban 5 mg BID Plan: - 12-lead EKG - Continue anticoagulation - Maintain HR below 60 given concern for dissection - Mixed hyperlipidemia 02/23/2022 - On atorvastatin 40 mg daily and ezetimibe 10 mg daily Plan: Lipid panel Continue home medications PAST SURGICAL HISTORY Procedure Laterality Date - EPS: AFIB ABLATION - PAST SURGICAL HISTORY OF 2012 Median sternotomy, Ascending aneurysm repair - TOTAL KNEE REPLACEMENT Left FAMILY HISTORY Problem Relation Age of Onset - other (dissection) Father - Aneurysm No Family History Social History Tobacco Use - Smoking status: Never Smoker - Smokeless tobacco: Never Used Substance Use Topics - Alcohol use: Not on file - Drug use: Not on file amLODIPine (NORVASC) 10 mg tablet, Take 10 mg by mouth once daily. (more content not included)... Normal [facility] CONSULT HNO ID: [id number] Author: Tangela Branch MD Service: Cardiac Surgery Author Type: Fellow Type: Consults Filed: 02/24/2022 4:19 AM Note Text: [facility] CONSULT NOTE Paige Romario Whalenrow [id number] Requesting Provider: Dr. Zamora Cardiothoracic Physician: Dr Benjamin Admit Date: 02/23/2022 LOS : 1 Chief Complaint: Back pain HPI: This is a 66 year old male?with the following PMHx: - [place] Type A aortic dissection in 2012 (s/p repair 02/16/2013 in [place]), not getting follow-up CT scans or Echo - Hypertension (relatively controlled with readings usually 120s systolic at home) on Amlodipine 10 mg daily, Olmesartan 40 mg daily, triamterene-HCTZ 37.5-25 mg daily. - Atrial fibrillation (on Apixaban 5 mg BID) - Hyperlipidemia on Atorvastatin 40 mg daily and Ezetimibe 19 ng daily - Hypothyroidism on Levothyroxine 150 mcg daily ? Patient transferred to [facility] Main CICU from [facility] in [place] on 02/23/2022 due to concerns for acute Type A aortic dissection. ? Patient was in his usual state of health until 02/18/2022 when he lifted a heavy object and did a twisting movement that caused him to have right sided back pain below the right scapula and involving the right shoulder. Pain was deep muscular in nature and exacerbated by movement and twisting. He went to his PCP who ordered a CXR that showed a widened mediastinum which prompted him to order a CT scan of the chest that showed aortic dissection and aneurysm so he was told to go to the ED, he went to the ED in [facility] where he got a CTA of the chest which showed: ? Repaired type-A Aortic dissection: [place] about 4.7 cm; Intact surgical graft ascending aorta; residual dissection beyond graft, proximal descending about 4.4 cm abdominal aorta with poor contrast enhancement; no interval change; no leakage/rupture, no pericardial effusion ? CT scan report from 02/16/2013: - Aortic Dissection involving the ascending, arch, and descending aorta terminating at some level below the diaphragm. [place] and new lumen are approximately 50:50 with flow in both lumens. ? Patient started on treatment for acute Aortic Dissection at OSH and transferred to out CICU for further evaluation and management. ? On interview here at [facility] he reports feeling well, denies any chest pain or interscapular pain, still has mild right sided shoulder and scapular region pain with movement, shortness of breath, orthopnea, leg swelling, neck pain, headache, arm pain or numbness, abdominal pain, leg pain, numbness or weakness, decrease in urine output, blood in urine. Remaining ROS is unremarkable. ? Patient has family history of Aortic Dissection (father of aortic dissection) but no history of Marfan or connective tissue disorder.? PAST MEDICAL HISTORY: PAST MEDICAL HISTORY Diagnosis Date - Ascending aortic dissection (HCC) 02/23/2022 Assessment: - History of Michael Type A s/p repair in 2012 - Current presentation does NOT seem to be consistent with an acute dissection - Complications present: None - Risk factors for higher mortality w/ Type A: advanced age, prior cardiac surgery, hypotension or shock, pulse deficit, cardiac tamponade, and ischemic ECG changes. Patient has history of prior sternotomy for the repair in 2012 - Essential hypertension 02/23/2022 At home on Amlodipine 10 mg daily, Olmesartan 40 mg daily, triamterene-HCTZ 37.5-25 mg daily Currently holding home medications in the setting of concern for dissection and will control with IV SNP pending surgical evaluation - History of hypothyroidism 02/23/2022 - No signs or symptoms of hyper or hypothyroidism - On 150 mcg of levothyroxine daily Plan: Continue home levothyroxine - Hypothyroidism 02/23/2022 - Longstanding persistent atrial fibrillation (HCC) 06/20/2019 - Known history of atrial fibrillation since 2012 - s/p multiple DCCD last in 2016? - s/p ablation in 2014 - Not on rate control or antiarrythmic. - On Apixaban 5 mg BID Plan: - 12-lead EKG - Continue anticoagulation - Maintain HR below 60 given concern for dissection - Mixed hyperlipidemia 02/23/2022 - On atorvastatin 40 mg daily and ezetimibe 10 mg daily Plan: Lipid panel Continue home medications PAST SURGICAL HISTORY: PAST SURGICAL HISTORY Procedure Laterality Date - EPS: AFIB ABLATION - PAST SURGICAL HISTORY OF 2012 Median sternotomy, Ascending aneurysm repair - TOTAL KNEE REPLACEMENT Left FAMILY HISTORY: FAMILY HISTORY Problem Relation Age of Onset - other (dissection) Father - Aneurysm No Family History SOCIAL HISTORY: Social History Tobacco Use - Smoking status: Never Smoker - Smokeless tobacco: Never Used Substance Use Topics - Alcohol use: Not on file - Drug use: Not on file MEDICATIONS: Prior to Admission Medications: amLODIPine (NORVASC) 10 mg tablet Take 10 mg by mouth once daily. api (more content not included)... Normal [facility] COVID-19 SOFIAOrdered By: Milton White on 02-23-2022 SARS-CoV+SARS-CoV-2 (COVID-19) Ag IA.rapid Ql (Resp) Negative Negative [facility] Comment on above: This is a duplicate Erica SARS Antigen (NINO) result to be used for statistical tracking purpose only. Comprehensive metabolic 2000 panelon 02-23-2022 Albumin [Mass/Vol] 4.2 g/dL Normal 3.9-4.9 [facility] Comment on above: Order Comment: Cristina vazquez Type: BLOOD SPECIMEN Ordering Facility: [facility] Address: [address] [place] [address] Performed By: #### 3 4528-0, 73877-9 #### [facility] CLIA [id number] [address] [place], [place] [address] [place] [address] [place] ALP [Catalytic activity/Vol] 72 U/L Normal 38-113 [facility] Comment on above: Order Comment: Cristina vazquez Type: BLOOD SPECIMEN Ordering Facility: [facility] Address: [address] [place] [address] Performed By: #### 3 4528-0, 08118-2 #### [facility] CLIA [id number] [address] [place] [address] [place] ALT [Catalytic activity/Vol] 22 U/L Normal 10-54 [facility] Comment on above: Order Comment: Speci men Type: BLOOD SPECIMEN Ordering Facility: [facility] Address: [address] [place] [address] Result Comment: Resu lts may be falsely increased due to interference from hemolysis. Suggest reorder as clinically indicated. Performed By: #### 3 4528-0, 44167-9 #### [facility] CLIA [id number] [address] [place] [address] [place] Anion gap [Moles/Vol] 11 mmol/L Normal 9-18 [facility] Comment on above: Order Comment: Speci men Type: BLOOD SPECIMEN Ordering Facility: [facility] Address: [address] [place] [address] Performed By: #### 3 4528-0, 74081-1 #### [facility] CLIA [id number] [address] [place] [address] [place] AST [Catalytic activity/Vol] 31 U/L Normal 14-40 [facility] Comment on above: Order Comment: Speci men Type: BLOOD SPECIMEN Ordering Facility: [facility] Address: [address] [place] [address] Result Comment: Resu lts may be falsely increased due to interference from hemolysis. Suggest reorder as clinically indicated. Performed By: #### 3 4528-0, 04680-4 #### [facility] CLIA [id number] [address] [place] [address] [place] Bilirubin [Mass/Vol] 1.0 mg/dL Normal 0.2-1.[address] [facility] Comment on above: Order Comment: Speci men Type: BLOOD SPECIMEN Ordering Facility: [facility] Address: [address] [place] [address] Performed By: #### 3 4528-0, 08905-7 #### [facility] CLIA [id number] [address] [place] [address] [place] Calcium [Mass/Vol] 8.9 mg/dL Normal 8.5-10.2 [facility] Comment on above: Order Comment: Speci men Type: BLOOD SPECIMEN Ordering Facility: [facility] Address: [address] [place], [place] [id number] Performed By: #### 3 4528-0, 68535-6 #### [facility] CLIA [id number] [address] [place] [address] [place] Chloride [Moles/Vol] 103 mmol/L Normal 97-[address] [facility] Comment on above: Order Comment: Speci men Type: BLOOD SPECIMEN Ordering Facility: [facility] Address: [address] [place], [place] [id number] Performed By: #### 3 4528-0, 03691-9 #### [facility] CLIA [id number] [address] [place] [address] [place] CO2 [Moles/Vol] 25 mmol/L Normal 22-30 [facility] Comment on above: Order Comment: Speci men Type: BLOOD SPECIMEN Ordering Facility: [facility] Address: [address] [place], [place] [id number] Performed By: #### 3 4528-0, 59209-8 #### [facility] CLIA [id number] [address] [place] [address] [place] Creatinine [Mass/Vol] 0.81 mg/dL Normal 0.73-1.22 [facility] Comment on above: Order Comment: Speci men Type: BLOOD SPECIMEN Ordering Facility: [facility] Address: [address] [place], [place] [id number] Performed By: #### 3 4528-0, 50115-2 #### [facility] CLIA [id number] [address] [place] [address] [place] ESTIMATED GLOMERULAR FILTRATION RATE 97 mL/min/1.73m??? Normal >=60 [facility] Comment on above: Order Comment: Cristina vazquez Type: BLOOD SPECIMEN Ordering Facility: [facility] Address: [address] [place] [address] Result Comment: Anat mated Glomerular Filtration Rate (eGFR) is calculated using the 2020 CKD-EPI creatinine equation. This equation utilizes serum creatinine, sex, and age as parameters. The creatinine assay has traceable calibration to isotope dilution-mass spectrometry. Refer to KDIGO guidelines for clinical interpretation. In patients with unstable renal function, e.g. those with acute kidney injury, the eGFR may not accurately reflect actual GFR. Performed By: #### 3 4528-0, 60634-3 #### [facility] CLIA [id number] [address] [place] [address] [place] Glucose [Mass/Vol] 108 mg/dL High 74-99 [facility] Comment on above: Order Comment: Cristina vazquez Type: BLOOD SPECIMEN Ordering Facility: [facility] Address: [address] [place] [address] Result Comment: The [place] Diabetes Association (ADA) provides guidance for cutoff values for fasting glucose and random glucose. The ADA defines fasting as no caloric intake for at least 8 hours. Fasting plasma glucose results between 100 to 125 mg/dL indicate increased risk for diabetes (prediabetes). Fasting plasma glucose results greater than or equal to 126 mg/dL meet the criteria for diagnosis of diabetes. In the absence of unequivocal hyperglycemia, results should be confirmed by repeat testing. In a patient with classic symptoms of hyperglycemia or hyperglycemic crisis, random plasma glucose results greater than or equal to 200 mg/dL meet the criteria for diagnosis of diabetes. Reference: Standards of Medical Care in Diabetes 2016, Citizen Of [place] Diabetes Association. Diabetes Care. 2016.39(Suppl 1). Performed By: #### 3 4528-0, 15027-9 #### [facility] CLIA [id number] [address] [place] [address] [place] Potassium [Moles/Vol] Normal [facility] Comment on above: Order Comment: Speci men Type: BLOOD SPECIMEN Ordering Facility: [facility] Address: [address] [place] [address] Result Comment: Unab le to assay due to interference from hemolysis. Suggest reorder as clinically indicated. Performed By: #### 3 4528-0, 25208-2 #### [facility] CLIA [id number] [address] [place] [address] [place] Protein [Mass/Vol] 7.0 g/dL Normal 6.3-8.0 [facility] Comment on above: Order Comment: Speci men Type: BLOOD SPECIMEN Ordering Facility: [facility] Address: [address] [place] [address] Performed By: #### 3 4528-0, 13215-7 #### [facility] CLIA [id number] [address] [place] [address] [place] Sodium [Moles/Vol] 139 mmol/L Normal 136-144 [facility] Comment on above: Order Comment: Speci men Type: BLOOD SPECIMEN Ordering Facility: [facility] Address: [address] [place] [address] Performed By: #### 3 4528-0, 59795-8 #### [facility] CLIA [id number] [address] [place] [address] [place] Urea nitrogen [Mass/Vol] 11 mg/dL Normal 9-24 [facility] Comment on above: Order Comment: Speci men Type: BLOOD SPECIMEN Ordering Facility: [facility] Address: [address] [place], [place] [address] Performed By: #### 3 4528-0, 08010-5 #### [facility] CLIA [id number] [address] [place] [address] [place] Creatinine (Bld) [Mass/Vol]O rdered By: Sujit White on 02-23-2022 Creatinine [Mass/Vol] 0.8 mg/dL 0.6-1.3 [facility] Comment on above: ER/ESD physician is notified/shown all ISTAT results. Critical values may be confirmed by laboratory testing if deemed necessary by ER attending doctor. Creatinine and Glomerular fi ltration rate.predicted panel (S/P/Bld)Ordered By: Sujit White on 02-23-2022 Creatinine [Mass/Vol] 0.89 mg/dL 0.64-1.27 [facility] Direct bilirubin measurement Ordered By: Sujit White on 02-23-2022 Bilirubin.direct [Mass/Vol] 0.2 mg/dL 0.0-0.4 [facility] Eosinophils Auto (Bld) [#/Vo l]Ordered By: Sujit White on 02-23-2022 Eosinophils (Bld) [#/Vol] 0.1 10*3/uL 0.0-0.45 [facility] Eosinophils/100 WBC Auto (Bl d)Ordered By: Sujit White on 02-23-2022 Eosinophils/100 WBC (Bld) 1.2 % [facility] Erythrocyte distribution wid th Auto (RBC) [Ratio]Ordered By: Sujit White on 02-23-2022 Erythrocyte distribution width (RBC) [Ratio] 14.5 % 12.0-14.8 [facility] Estimated glomerular filtrat ion rate (GFR) non- AmericanOrdered By: Sujit White on 02-23-2022 GFR/1.73 sq M.predicted among non-blacks MDRD (S/P/Bld) [Vol rate/Area] > 60 mL/Min [facility] Gas and Carbon monoxide pane l (BldV)on 02-23-2022 Base excess Calc (BldV) [Moles/Vol] 2 mmol/L Normal 0-2 [facility] Comment on above: Order Comment: Speci men Type: BLOOD SPECIMEN Ordering Facility: [facility] Address: [address] [place] [address] Performed By: #### C KCKMB, 87268-1, 2157-6, 90657-4 #### [facility] CLIA [id number] [address] [place] [address] [place] Body temperature 98.6 [degF] Normal [facility] Comment on above: Order Comment: Speci men Type: BLOOD SPECIMEN Ordering Facility: [facility] Address: [address] [place] [address] Performed By: #### C LEILA, 57822-2, 2157-02, #### [facility] CLIA [id number] [address] [place] [address] [place] CALCIUM IONIZED, PH CORRECTED 1.20 mmol/L Normal 1.08-1.30 [facility] Comment on above: Order Comment: Speci men Type: BLOOD SPECIMEN Ordering Facility: [facility] Address: [address] [place] [address] Performed By: #### Epifanio DEE, 55486-2, 2157-02, #### [facility] CLIA [id number] [address] [place] [address] [place] Calcium.ionized (Bld) [Mass/Vol] 1.19 mmol/L Normal 1.08-1.30 [facility] Comment on above: Order Comment: Speci men Type: BLOOD SPECIMEN Ordering Facility: [facility] Address: [address] [place], [place] [address] Performed By: #### Epifanio DEE, 15062-2, 2157-02, #### [facility] CLIA [id number] [address] [place] [address] [place] Carboxyhemoglobin (BldV) [Mass fraction] 1.2 % Normal 0.0-2.0 [facility] Comment on above: Order Comment: Speci men Type: BLOOD SPECIMEN Ordering Facility: [facility] Address: [address] [place], [place] [address] Result Comment: Carb oxyhemoglobin Reference Range for Smokers: 2.0-8.0% Performed By: #### C LEILA, , 2157-02, #### [facility] CLIA [id number] [address] [place] [address] [place] CO2 (BldV) [Partial pressure] 42 mm[Hg] Normal 42-55 [facility] Comment on above: Order Comment: Speci men Type: BLOOD SPECIMEN Ordering Facility: [facility] Address: [address] [place], [place] [address] Performed By: #### Epifanio DEE, 64529-5, 2157-02, #### [facility] CLIA [id number] [address] [place] [address] [place] CO2 [Moles/Vol] 28 mmol/L Normal 25-29 [facility] Comment on above: Order Comment: Speci men Type: BLOOD SPECIMEN Ordering Facility: [facility] Address: [address] [place], [place] [address] Performed By: #### Epifanio DEE, , 2157-02, #### [facility] CLIA [id number] [address] [place] [address] [place] Glucose [Mass/Vol] 172 mg/dL High 60-105 [facility] Comment on above: Order Comment: Speci men Type: BLOOD SPECIMEN Ordering Facility: [facility] Address: [address] [place] [address] Performed By: #### Epifanio DEE, 08734-9, 2157-02, #### [facility] CLIA [id number] [address] [place] [address] [place] HCO3 (Bld) [Moles/Vol] 26 mmol/L Normal 24-28 [facility] Comment on above: Order Comment: Speci men Type: BLOOD SPECIMEN Ordering Facility: [facility] Address: [address] [place], [place] [address] Performed By: #### Epifanio DEE, , 2157-02, #### [facility] CLIA [id number] [address] [place], [place] [address] [place] Hematocrit (Bld) [Volume fraction] 42.3 % Normal 39.0-51.0 [facility] Comment on above: Order Comment: Speci men Type: BLOOD SPECIMEN Ordering Facility: [facility] Address: [address] [place] [address] Performed By: #### C KCKMB, 17706-6, 2157-02, #### [facility] CLIA [id number] [address] [place] [address] [place] Hemoglobin (Bld) [Mass/Vol] 13.8 g/dL Normal 13.0-17.0 [facility] Comment on above: Order Comment: Speci men Type: BLOOD SPECIMEN Ordering Facility: [facility] Address: [address] [place] [address] Performed By: #### C KCKMB, 84041-3, 2157-02, #### [facility] CLIA [id number] [address] [place] [address] [place] Lactate [Moles/Vol] 1.2 mmol/L Normal 0.5-2.[address] [facility] Comment on above: Order Comment: Speci men Type: BLOOD SPECIMEN Ordering Facility: [facility] Address: [address] [place] [address] Performed By: #### C KCKMB, 46027-4, 2157-02, #### [facility] CLIA [id number] [address] [place] [address] [place] Methemoglobin (Bld) [Mass fraction] 1.1 % Normal 0.0-1.5 [facility] Comment on above: Order Comment: Speci men Type: BLOOD SPECIMEN Ordering Facility: [facility] Address: [address] [place] [address] Performed By: #### Epifanio NELSONKMSandrine, 29249-8, 2157-02, #### [facility] CLIA [id number] [address] [place] [address] [place] O2 THERAPY RA=Room Air Normal [facility] Comment on above: Order Comment: Speci men Type: BLOOD SPECIMEN Ordering Facility: [facility] Address: [address] [place] [address] Performed By: #### C LEILA, 00144-9, 6, #### [facility] CLIA [id number] [address] [place] [address] [place] Oxygen (BldV) [Partial pressure] 46 mm[Hg] High 35-45 [facility] Comment on above: Order Comment: Speci men Type: BLOOD SPECIMEN Ordering Facility: [facility] Address: [address] [place], [place] [address] Performed By: #### Epifanio DEE, 14056-8, 2157-02, #### [facility] CLIA [id number] [address] [place] [address] [place] Oxygen saturation in Blood 80 % Normal 60-85 [facility] Comment on above: Order Comment: Speci men Type: BLOOD SPECIMEN Ordering Facility: [facility] Address: [address] [place] [address] Performed By: #### Epifanio NELSONKMSandrine, 00814-8, 2157-02, #### [facility] CLIA [id number] [address] [place], [place] [address] [place] Oxyhemoglobin (BldV) [Mass fraction] 78 % Normal 60-85 [facility] Comment on above: Order Comment: Speci men Type: BLOOD SPECIMEN Ordering Facility: [facility] Address: [address] [place] [address] Performed By: #### C LEILA, 21733-4, 2157-02, #### [facility] CLIA [id number] [address] [place] [address] [place] pH (BldV) 7.41 [pH] Normal 7.32-7.42 [facility] Comment on above: Order Comment: Speci men Type: BLOOD SPECIMEN Ordering Facility: [facility] Address: [address] [place] [address] Performed By: #### C KCKMB, 93627-3, 2157-02, #### [facility] CLIA [id number] [address] [place] [address] [place] Potassium [Moles/Vol] 3.4 mmol/L Low 3.5-5.0 [facility] Comment on above: Order Comment: Speci men Type: BLOOD SPECIMEN Ordering Facility: [facility] Address: [address] [place] [address] Performed By: #### C KCKMB, 92517-2, 2157-02, #### [facility] CLIA [id number] [address] [place] [address] [place] Sodium [Moles/Vol] 138 mmol/L Normal 136-144 [facility] Comment on above: Order Comment: Speci men Type: BLOOD SPECIMEN Ordering Facility: [facility] Address: [address] [place] [address] Performed By: #### C KCKMB, 30845-8, 2157-02, #### [facility] CLIA [id number] [address] [place] [address] [place] Globulin Calc (S) [Mass/Vol] Ordered By: Sujit White on 02-23-2022 Globulin (S) [Mass/Vol] 3.3 g/dL [facility] HISTORY PHYSICALon HISTORY PHYSICAL HNO ID: [id number] Author: Felice Zamora MD Service: Cardiovascular Medicine Author Type: Physician Type: HANDP Filed: 02/24/2022 10:18 AM Note Text: [facility] H[facility] AND PHYSICAL Paige Whalenrow [id number] PRIMARY SERVICE: Cardiology: Coronary Intensive Care Unit CHIEF COMPLAINT: Aortic Dissection History of Present Illness: This is a 66 year old male with the following PMHx: - Michael Type A aortic dissection in 2012 (s/p repair 02/16/2013 in [place]), not getting follow-up CT scans or Echo - Hypertension (relatively controlled with readings usually 120s systolic at home) on Amlodipine 10 mg daily, Olmesartan 40 mg daily, triamterene-HCTZ 37.5-25 mg daily. - Atrial fibrillation (on Apixaban 5 mg BID) - Hyperlipidemia on Atorvastatin 40 mg daily and Ezetimibe 19 ng daily - Hypothyroidism on Levothyroxine 150 mcg daily Patient transferred to [facility] Main CICU from [facility] in [place] on 02/23/2022 due to concerns for acute Type A aortic dissection. Patient was in his usual state of health until 02/18/2022 when he lifted a heavy object and did a twisting movement that caused him to have right sided back pain below the right scapula and involving the right shoulder. Pain was deep muscular in nature and exacerbated by movement and twisting. He went to his PCP who ordered a CXR that showed a widened mediastinum which prompted him to order a CT scan of the chest that showed aortic dissection and aneurysm so he was told to go to the ED, he went to the ED in [facility] where he got a CTA of the chest which showed: 1. Aortic Dissection originating in the ascending aorta proximal to the great vessels and extending through the arch, descending aorta, and abdominal aorta and probably in the left common iliac artery. The dissection also extends into the superior mesenteric artery. 2. The great vessels arise from the true lumen and are patent 3. The left renal artery arises from the false lumen 4. Aneurysmal dilatation of the thoracic aorta, abdominal aorta, and common iliac arteries. CT reviewed here and comment is: CTA from today 02/23/2022 at 09:[address] from 02/18/2022: Repaired type-A Aortic dissection: [place] root about 4.7 cm; Intact surgical graft ascending aorta; residual dissection beyond graft, proximal descending about 4.4 cm (need to confirm in 3D reconstruction); abdominal aorta with poor contrast enhancement; no interval change; no leakage/rupture, no pericardial effusion; patient has coronary calcification CT scan report from 02/16/2013: - Aortic Dissection involving the ascending, arch, and descending aorta terminating at some level below the diaphragm. The [place] and new lumen are approximately 50:50 with flow in both lumens. Patient started on treatment for acute Aortic Dissection at [facility] and transferred to out CICU for further evaluation and management. On interview here at [facility] he reports feeling well, denies any chest pain or interscapular pain, still has mild right sided shoulder and scapular region pain with movement, shortness of breath, orthopnea, leg swelling, neck pain, headache, arm pain or numbness, abdominal pain, leg pain, numbness or weakness, decrease in urine output, blood in urine. Remaining ROS is unremarkable. Patient has family history of Aortic Dissection (father of aortic dissection) but no history of Marfan or connective tissue disorder. Overnight Remains without any chest pain or SOB. No new symptoms. Physical exam unchanged. Vital signs remain stable off SNP with BP < 120/80 PHYSICAL EXAM: Mental Status: awake Vitals: BP 118/59 Pulse (!) 58 Temp 36.6 ?C (97.9 ?F) (Oral) Resp 14 Ht 195.6 cm (6' 5 ) Wt (!) 141.8 kg (312 lb 9.8 oz) SpO2 95% BMI 37.07 kg/m? HR 02/24/22 0300 02/24/22 0330 02/24/22 0343 02/24/22 0400 Pulse: (!) 131 (!) 58 (!) 58 (!) 58 Sinus BP 02/24/22 0230 02/24/22 0300 02/24/22 0330 02/24/22 0400 BP: 114/57 113/78 117/61 118/59 MAP 83 Hemodynamics: No RHC CV Exam: JVD not elevated Murmur none Respiratory Status: Ventilator N FiO2 RA SAO2 95% PEEP NA Weaning: NA Lungs: Clear Abd: soft Bowel Sounds: active Extremities: Edema none Pulses Normal symmetric pulses in upper and lower extremities and both carotids I/O: Intake/Output Summary (Last 24 hours) at 02/24/2022 0429 Last data filed at 02/24/2022 0000 Gross per 24 hour Intake 108.8 ml Output 915 ml Net -806.2 ml DATA: Laboratory CBC: Recent Labs 02/24/22 0023 02/23/22 1228 WBC 8.41 9.21 HB 12.4* 14.0 HCT 38.1* 42.8 PLT 198 201 COAG: Recent Labs 02/24/22 0023 02/23/22 1228 APTT 28.3 31.0 INR 1.2 1.2 BMP: Recent Labs 02/24/22 0023 02/23/22 1800 02/23/22 1228 GLUC 114* -- 108* NA 141 -- 139 K 3.5* -- -- CHLOR 104 -- 103 CO2 24 28 25 ANION 13 -- 11 BUN 14 -- 11 CREAT 0.82 (more content not included)... Normal [facility] Hematocrit Auto (Bld) [Volum e fraction]Ordered By: Sujit White on 02-23-2022 Hematocrit (Bld) [Volume fraction] 43.1 % 38.8-50.0 [facility] LIPID PANEL, NONFASTINGon Cholesterol [Mass/Vol] 106 mg/dL Normal <200 [facility] Comment on above: Order Comment: Cristina vazquez Type: BLOOD SPECIMEN Ordering Facility: [facility] Address: [address] [place] [address] Result Comment: <200 mg/dL, Desirable 200-239 mg/dL, Borderline high >239 mg/dL, High Performed By: #### 3 4528-0, 09098-5 #### [facility] CLIA [id number] [address] [place], [place] [address] [id number] [place] [address] STATES OF [facility] HDL CHOLESTEROL, NF 36 mg/dL Low >[address] [facility] Comment on above: Order Comment: Cristina vazquez Type: BLOOD SPECIMEN Ordering Facility: [facility] Address: [address] [place] [address] Result Comment: 40-5 9 mg/dL, Acceptable >59 mg/dL, High: Negative risk factor for coronary heart disease <40 mg/dL, Low: Positive risk factor for coronary heart disease Performed By: #### 3 4528-0, 54537-3 #### [facility] CLIA [id number] LDL CHOLESTEROL, NF 59 mg/dL Normal <[address] [facility] Comment on above: Order Comment: Speci men Type: BLOOD SPECIMEN Ordering Facility: [facility] Address: [address] [place] [address] Result Comment: <100 mg/dL, Optimal 100-129 mg/dL, Near optimal/above optimal 130-159 mg/dL, Borderline high 160-189 mg/dL, High >189 mg/dL, Very high Secondary prevention optimal LDL Cholesterol levels are recommended to be < 70 mg/dL Performed By: #### 3 4528-0, 79909-3 #### [facility] CLIA [id number] [address] [place] [address] STATES [facility] LDL/HDL RATIO, NF 1.64 mg/dL Normal <2.54 [facility] Comment on above: Order Comment: Speci men Type: BLOOD SPECIMEN Ordering Facility: [facility] Address: [address] [place] [address] Result Comment: Johanna urbano: 1. National Cholesterol Education Program ATP III Guideline At-A-Glance Quick Desk Reference: National Heart, Lung, and Blood [place]. National Institutes of Health. 2001: NIH Publication No. 01-3305. 2. An International Atherosclerosis Society position paper: global recommendations for the management of dyslipidemia: executive summary, Atherosclerosis. 2014: 232(2):410-413. Performed By: #### 3 4528-0, 99906-9 #### [facility] CLIA [id number] [address] [place] [address] STATES OF [facility] NON HDL CHOL, NF 70 mg/dL Normal <130 [facility] Comment on above: Order Comment: Maribeli men Type: BLOOD SPECIMEN Ordering Facility: [facility] Address: [address] [place] [address] Result Comment: <130 mg/dL, Optimal 130-159 mg/dL, Near optimal/above optimal 160-189 mg/dL, Borderline high 190-219 mg/dL, High >219 mg/dL, Very high Secondary prevention optimal non HDL Cholesterol levels are recommended to be <100 mg/dL Performed By: #### 3 4528-0, 69513-1 #### [facility] CLIA [id number] [address] [place] [address] [place] T CHOL/HDL RATIO NF 2.94 mg/dL Normal <5.[address] [facility] Comment on above: Order Comment: Speci men Type: BLOOD SPECIMEN Ordering Facility: [facility] Address: [address] [place] [address] Performed By: #### 3 4528-0, 46567-1 #### [facility] CLIA [id number] [address] [place] [address] OF [facility] TRIGLYCERIDES, NF 54 mg/dL Normal <150 [facility] Comment on above: Order Comment: Speci men Type: BLOOD SPECIMEN Ordering Facility: [facility] Address: [address] [place] [address] Result Comment: <150 mg/dL, Normal 150-199 mg/dL, Borderline high 200-499 mg/dL, High >499 mg/dL, Very high Performed By: #### 3 4528-0, 49421-4 #### [facility] CLIA [id number] [address] [place] [address] [place] VLDL CHOLESTEROL, NF 11 mg/dL Normal <[address] [facility] Comment on above: Order Comment: Speci men Type: BLOOD SPECIMEN Ordering Facility: [facility] Address: [address] [place] [address] Performed By: #### 3 4528-0, 10204-8 #### [facility] CLIA [id number] [address] [place] [address] [place] Laboratory - Chemistry and C hemistry - challengeOrdered By: Sujit White on 02-23-2022 Natriuretic peptide B (Bld) [Mass/Vol] 25.0 pg/mL 5-100 [facility] - CoagulationOrde red By: Sujit White on 02-23-2022 PT Coag (PPP) [Time] 18.8 s 9.0-12.9 [facility] - Hematology and Cell countsOrdered By: Sujit White on 02-23-2022 Nucleated RBC/100 WBC (Bld) [Ratio] 0.0 % 0-0.5 [facility] Lymphocytes Auto (Bld) [#/Vo l]Ordered By: Sujit White on 02-23-2022 Lymphocytes (Bld) [#/Vol] 1.6 10*3/uL 1.00-4.8 [facility] Lymphocytes/100 WBC Auto (Bl d)Ordered By: Sujit White on 02-23-2022 Lymphocytes/100 WBC (Bld) 19.4 % [facility] MCH Auto (RBC) [Entitic mass ]Ordered By: Sujit White on 02-23-2022 MCH (RBC) [Entitic mass] 29.3 pg 27.5-35.2 [facility] MCHC Auto (RBC) [Mass/Vol]Or dered By: Sujit White on 02-23-2022 MCHC (RBC) [Mass/Vol] 33.2 g/dL 32.5-35.6 [facility] MCV Auto (RBC) [Entitic vol] Ordered By: Sujit White on 02-23-2022 MCV (RBC) [Entitic vol] 88.4 fL 83.5-[address] [facility] Magnesium SerPl-mCncon 02-23 Magnesium [Mass/Vol] 1.8 mg/dL Normal 1.7-2.[address] [facility] Comment on above: Order Comment: Speci men Type: BLOOD SPECIMEN Ordering Facility: [facility] Address: [address] [place] [address] Performed By: #### 3 4528-0, 83900-9 #### [facility] CLIA [id number] [address] [place] [address] [place] Monocytes Auto (Bld) [#/Vol] Ordered By: Sujit White on 02-23-2022 Monocytes (Bld) [#/Vol] 1.0 10*3/uL 0.0-0.8 [facility] Monocytes/100 WBC Auto (Bld) Ordered By: Sujit White on 02-23-2022 Monocytes/100 WBC (Bld) 11.4 % [facility] NURSING PROGon 02-23-2022 NURSING PROG HNO ID: [id number] Author: Cher Fournier, RN Service: Nursing Author Type: Registered Nurse Type: Nursing Progress Note Filed: 02/23/2022 12:44 PM Note Text: Nursing Progress Note Patient Name: Paige Montiel Patient Location: [address] Transfer Note: Patient transferred into room/unit j31 bed 19 in stable condition. Actions taken: pt arrived on no gtts or oxygen. CTS, fellow, and nurses ar bedside. Pt complains of no chest pain or numbness and tingling in extremities. Pt belongings include clothing, shoes, cell phone, and jewelry (ring). Pt attached to monitor and BP obtained in all 4 extremities. See MAR for new orders. This note was completed by: Cher Fournier Normal [facility] Neutrophils Auto (Bld) [#/Vo l]Ordered By: Sujit White on 02-23-2022 Neutrophils (Bld) [#/Vol] 5.7 10*3/uL 1.8-7.7 [facility] Neutrophils/100 WBC Auto (Bl d)Ordered By: Sujit White on 02-23-2022 Neutrophils/100 WBC (Bld) 67.4 % [facility] No Panel InformationOrdered By: Sujit White on 02-23-2022 SARS Antigen (LFIA) [facility] Estimated GFR () > 60 mL/Min [facility] Comment on above: GFR estimated refere nce range: According to KDOQI guidelines, <60 ml/min/1.73m2 is sufficient to diagnose a patient with chronic kidney disease. Pharmacy Creatinine Clearance (Chem 126.52 [facility] POC Estimated GFR > 60 [facility] Comment on above: GFR estimated refere nce range: According to KDOQI guidelines, <60 ml/min/1.73m2 is sufficient to diagnose a patient with chronic kidney disease. POC Estimated GFR Non- Amer > 60 [facility] PT panel Coag (PPP)on 2021 INR Coag (PPP) [Relative time] 1.2 {INR} Normal 0.9-1.3 [facility] Comment on above: Order Comment: Speci men Type: BLOOD SPECIMEN Ordering Facility: [facility] Address: [address] [place] [address] Result Comment: Babs min K Antagonist (VKA) Therapeutic Range: INR 2 to 3 (Target INR of 2.5) Note: For patients treated with VKA drugs, such as warfarin, the [place] [employer] 2012 Guideline recommends a therapeutic INR range of 2 to 3 (target INR of 2.5). This recommendation includes high-risk patients with antiphospholipid syndrome with previous arterial or venous thromboembolism, current-generation mechanical or bioprosthetic aortic heart valve replacement. Note: Patients with mechanical aortic valve replacement and additional risk factors for thromboembolic events (atrial fibrillation, previous thromboembolism, LV dysfunction, hypercoagulable conditions) or an older generation mechanical AVR (i.e., ball in-Cage) or any mechanical MVR should have a INR therapeutic range of 2.5 to 3.5 (target INR of 3). Clinton DUARTE, et al. Chest 2012, 141:7S-47S Aureliano RA, et al. JACC 2017, 70: 252-289 Performed By: #### C KCKMB, 33145-2, 2157-6, 11784-7 #### [facility] CLIA [id number] [address] [place] [address] [place] PT Coag (PPP) [Time] 12.3 s Normal 9.7-13.0 [facility] Comment on above: Order Comment: Speci men Type: BLOOD SPECIMEN Ordering Facility: [facility] Address: [address] [place] [address] [place] [address] Performed By: #### C KCKMB, 39529-4, 2157-02, #### [facility] CLIA [id number] [address] [place] [address] [place] Phosphate SerPl-mCncon 02-23 Phosphate [Mass/Vol] 2.3 mg/dL Low 2.7-4.[address] [facility] Comment on above: Order Comment: Speci men Type: BLOOD SPECIMEN Ordering Facility: [facility] Address: [address] [place], [place] [address] [address] Performed By: #### C KCKMB, 26248-2, 2157-02, #### [facility] CLIA [id number] [address] [place] [address] [place] Platelet mean volume Auto (B ld) [Entitic vol]Ordered By: Sujit White on 02-23-2022 Platelet mean volume (Bld) [Entitic vol] 7.2 fL 6.6-10.1 [facility] Platelet poor plasma interna tional normalized ratio (INR) by coagulation assay (relatOrdered By: Sujit White on 02-23-2022 INR Coag (PPP) [Relative time] 1.7 {INR} [facility] Comment on above: INR Therapeutic Rang e A) Pre- and Peroperative OAT started two weeks before surgery. NOT HIP SURGERY: 1.5 - 2.5 HIP SURGERY: 2 - 3 B) Primary and secondary prevention of venous THROMBOSIS: 2 - 3 C) Active venous thrombosis, pulmonary embolism and prevention of recurrent venous thrombosis: 2 - 3 D) Prevention of arterial thromboembolism including patients with mechanical heart valves: 3 - 4.5 Platelets Auto (Bld) [#/Vol] Ordered By: Sujit White on 02-23-2022 Platelets (Bld) [#/Vol] 216 10*3/uL 150-450 [facility] Protein [Mass/volume] in Ser um or PlasmaOrdered By: Sujit White on 02-23-2022 Protein [Mass/Vol] 7.2 g/dL 6.1-7.9 [facility] RBC Auto (Bld) [#/Vol]Ordere d By: Sujit White on 02-23-2022 RBC (Bld) [#/Vol] 4.87 10*6/uL 3.90-5.60 [facility] SARS-CoV-2 RNA Resp Ql BRIAN+p robeon 02-23-2022 SARS-CoV-2 (COVID-19) RNA BRIAN+probe Ql (Resp) COVID 19 RESULT: SARS-CoV-2 (Agent of COVID-19) Not Detected by RT-PCR or equivalent method. This test has been authorized by FDA under an Emergency Use Authorization (EUA). Normal [facility] Comment on above: Performed By: #### 3 4528-0, 03505-0 #### [facility] CLIA [id number] [address] [place] [address] STAPH AUREUS PCRon S. aureus and MRSA panel BRIAN+probe (Nose) Normal Negative [facility] Comment on above: Order Comment: Speci men Type: BLOOD SPECIMEN Ordering Facility: [facility] Address: [address] [place] [address] Result Comment: Nega tive for Staphylococcus aureus by PCR. Negative for MRSA by PCR Performed By: #### 3 4528-0, 98246-5 #### [facility] CLIA [id number] [address] [place] [address] [place] [facility] Serum or plasma alanine vasquez otransferase measurement without P-5'-P (enzymatic activiOrdered By: Sujit White on 02-23-2022 ALT No additional P-5'-P [Catalytic activity/Vol] 25 U/L [facility] Serum or plasma albumin/glob ulin mass ratioOrdered By: Sujit White on 02-23-2022 Albumin/Globulin [Mass ratio] 1.2 {ratio} [facility] Serum or plasma alkaline natalya sphatase measurement (enzymatic activity/volume)Ordered By: Sujit White on 02-23-2022 ALP [Catalytic activity/Vol] 68 U/L 32-92 [facility] Serum or plasma aspartate am inotransferase measurement (enzymatic activity/volume)Ordered By: Sujit White on 02-23-2022 AST [Catalytic activity/Vol] 25 U/L 10-42 [facility] Serum or plasma calcium simin urement (mass/volume)Ordered By: Sujit White on 02-23-2022 Calcium [Mass/Vol] 9.3 mg/dL 8.2-10.2 [facility] Serum or plasma chloride rick surement (moles/volume)Ordered By: Sujit White on 02-23-2022 Chloride [Moles/Vol] 105 mmol/L 95-114 [facility] Serum or plasma glucose simin urement (mass/volume)Ordered By: Sujit White on 02-23-2022 Glucose [Mass/Vol] 128 mg/dL 70-100 [facility] Comment on above: ADA recommended refe rence range Random Glucose Reference Range is dependent on time and content of last meal. Glucose of more than 200 mg/dL in a nonstressed, ambulatory subject supports the diagnosis of Diabetes Mellitus. Serum or plasma non-glucuron idated bilirubin measurement (mass/volume)Ordered By: Sujit White on 02-23-2022 Bilirubin.indirect [Mass/Vol] 1.1 mg/dL [facility] Serum or plasma potassium me asurement (moles/volume)Ordered By: Sujit White on 02-23-2022 Potassium [Moles/Vol] 3.6 mmol/L 3.5-5.1 [facility] Serum or plasma sodium measu rement (moles/volume)Ordered By: Sujit White on 02-23-2022 Sodium [Moles/Vol] 139 mmol/L 136-146 [facility] Serum or plasma total biliru bin measurement (mass/volume)Ordered By: Sujit White on 02-23-2022 Bilirubin [Mass/Vol] 1.3 mg/dL 0.3-1.2 [facility] Comment on above: Samples from patient s who have taken Naproxen have shown spurious elevation in Total Bilirubin levels. A metabolite of Naproxen, O-desmethylnaproxen, has been shown to interfere with the Jendrjulianaik-Grof method for measuring Total Bilirubin. Serum or plasma total carbon dioxide measurement (moles/volume)Ordered By: Sujit White on 02-23-2022 CO2 [Moles/Vol] 25.5 mmol/L 22.0-30.0 [facility] Serum or plasma urea nitroge n measurement (mass/volume)Ordered By: Sujit White on 02-23-2022 Urea nitrogen [Mass/Vol] 11 mg/dL 06-03 [facility] TROPONIN Ton 02-23-2022 Troponin T.cardiac [Mass/Vol] ug/L Normal 0.000-0.02 9 [facility] Comment on above: Order Comment: Specbranden vazquez Type: BLOOD SPECIMEN Ordering Facility: [facility] Address: [address] [place] [address] Performed By: #### C KCKMB, 35595-4, 2157-02, #### [facility] CLIA [id number] [address] [place] [address] [place] Troponin T.cardiac [Mass/Vol] ug/L Normal 0.000-0.02 9 [facility] Comment on above: Order Comment: Cristina vazquez Type: BLOOD SPECIMEN Ordering Facility: [facility] Address: [address] [place] [address] Performed By: #### C KCKMB, 54346-5, 2157-02, #### [facility] CLIA [id number] [address] [place] [address] [place] TYPE + SCREENon 02-23-2022 ABO A Normal [facility] Comment on above: Order Comment: Speci men Type: BLOOD SPECIMEN Ordering Facility: [facility] Address: [address] [place] [address] Performed By: #### 3 4528-0, 88437-9 #### [facility] CLIA [id number] [address] [place] HISTORICAL AB SCR STATUS Negative Normal [facility] Comment on above: Order Comment: Speci men Type: BLOOD SPECIMEN Ordering Facility: [facility] Address: [address] [place] [address] Performed By: #### 3 4528-0, 50326-0 #### [facility] CLIA [id number] [address] [place] [address] [place] Rh Nom (Bld) Positive Normal [facility] Comment on above: Order Comment: Speci men Type: BLOOD SPECIMEN Ordering Facility: [facility] Address: [address] [place] [address] Performed By: #### 3 4528-0, 84702-5 #### [facility] CLIA [id number] [address] [place] [address] [place] TYPE AND SCREEN EXPIRATION 02/26/2022 23:59 Normal [facility] Comment on above: Order Comment: Speci men Type: BLOOD SPECIMEN Ordering Facility: [facility] Address: [address] [place] [address] Performed By: #### 3 4528-0, 54297-2 #### [facility] CLIA [id number] [address] [place] [address] [place] Troponin I.cardiac [Mass/vol ume] in Serum or Plasma by High sensitivity methodOrdered By: Sujit White on 02-23-2022 Troponin I.cardiac High sensitivity method [Mass/Vol] 12 pg/mL 0-20 [facility] Urinalysis complete panel (U )on 02-23-2022 Bilirubin Ql (U) Negative Normal Negative [facility] Comment on above: Order Comment: Speci men Type: BLOOD SPECIMEN Ordering Facility: [facility] Address: [address] [place] [address] Performed By: #### C KCKMB, 56245-7, 2157-6, 90526-0 #### [facility] CLIA [id number] [address] [place] [address] [place] Clarity (Unsp spec) Clear Normal Clear [facility] Comment on above: Order Comment: Speci men Type: BLOOD SPECIMEN Ordering Facility: [facility] Address: [address] [place], [place] [address] Performed By: #### Epifanio KCNICOLLE, 30238-4, 2157-02, #### [facility] CLIA [id number] [address] [place] [address] [place] Color (U) Yellow Normal Yellow [facility] Comment on above: Order Comment: Speci men Type: BLOOD SPECIMEN Ordering Facility: [facility] Address: [address] [place] [address] Performed By: #### Epifanio DEE, 71602-3, 2157-02, #### [facility] CLIA [id number] [address] [place] [address] [place] Epithelial cells LM.HPF (Urine sed) [#/Area] Few Normal [facility] Comment on above: Order Comment: Speci men Type: BLOOD SPECIMEN Ordering Facility: [facility] Address: [address] [place], [place] [address] Performed By: #### Epifanio NELSONKMSandrine, 26614-4, 2157-02, #### [facility] CLIA [id number] [address] [place] [address] [place] Glucose Test strip (U) [Mass/Vol] Negative Normal Negative [facility] Comment on above: Order Comment: Speci men Type: BLOOD SPECIMEN Ordering Facility: [facility] Address: [address] [place], [place] [address] Performed By: #### Epifanio KCKMB, 43030-1, 2157-02, #### [facility] CLIA [id number] [address] [place] [address] [place] Hemoglobin Ql (U) Negative Normal Negative [facility] Comment on above: Order Comment: Speci men Type: BLOOD SPECIMEN Ordering Facility: [facility] Address: [address] [place], [place] [address] Performed By: #### Epifanio DEE, , 2157-02, #### [facility] CLIA [id number] [address] [place] [address] [place] Ketones Ql (U) Negative Normal Negative [facility] Comment on above: Order Comment: Speci men Type: BLOOD SPECIMEN Ordering Facility: [facility] Address: [address] [place], [place] [address] Performed By: #### Epifanio DEE, , 2157-02, #### [facility] CLIA [id number] [address] [place] [address] [place] Leukocyte esterase Test strip Ql (U) Negative Normal Negative [facility] Comment on above: Order Comment: Speci men Type: BLOOD SPECIMEN Ordering Facility: [facility] Address: [address] [place], [place] [address] Performed By: #### Epifanio DEE, , 2157-02, #### [facility] CLIA [id number] [address] [place] [address] [place] Nitrite Ql (U) Negative Normal Negative [facility] Comment on above: Order Comment: Speci men Type: BLOOD SPECIMEN Ordering Facility: [facility] Address: [address] [place], [place] [address] Performed By: #### Epifanio DEE, , 2157-02, #### [facility] CLIA [id number] [address] [place] [address] [place] pH (U) 7.0 [pH] Normal 5.0-8.0 [facility] Comment on above: Order Comment: Speci men Type: BLOOD SPECIMEN Ordering Facility: [facility] Address: [address] [place], [place] [address] Performed By: #### Epifanio NELSONKMSandrine, , 2157-02, #### [facility] CLIA [id number] [address] [place] [address] [place] Protein (U) [Mass/Vol] Negative Normal Negative [facility] Comment on above: Order Comment: Speci men Type: BLOOD SPECIMEN Ordering Facility: [facility] Address: [address] [place], [place] [address] Performed By: #### Epifanio NELSONKMSandrine, , 2157-02, #### [facility] CLIA [id number] [address] [place] [address] [place] RBC LM.HPF (Urine sed) [#/Area] 0-3 /HPF Normal 0-3 /HPF [facility] Comment on above: Order Comment: Speci men Type: BLOOD SPECIMEN Ordering Facility: [facility] Address: [address] [place], [place] [address] Performed By: #### Epifanio NELSONKMSandrine, , 2157-02, #### [facility] CLIA [id number] [address] [place] [address] [place] Specific gravity (U) [Rel density] 1.042 High 1.005-1.03 0 [facility] Comment on above: Order Comment: Speci men Type: BLOOD SPECIMEN Ordering Facility: [facility] Address: [address] [place], [place] [address] Performed By: #### Epifanio NELSONKMSandrine, , 2157-02, #### [facility] CLIA [id number] [address] [place] [address] [place] SPERM Present Abnormal None Seen [facility] Comment on above: Order Comment: Speci men Type: BLOOD SPECIMEN Ordering Facility: [facility] Address: [address] [place] [address] Performed By: #### Epifanio KCKMB, 61950-9, 2157-02, #### [facility] CLIA [id number] [address] [place] [address] [place] Urobilinogen Ql (U) Negative Normal Negative [facility] Comment on above: Order Comment: Speci men Type: BLOOD SPECIMEN Ordering Facility: [facility] Address: [address] [place] [address] Performed By: #### Epifanio KCKMB, 89351-5, 2157-02, #### [facility] CLIA [id number] [address] [place] [address] [place] WBC LM.HPF (Urine sed) [#/Area] 0-5 /HPF Normal 0-5 /HPF [facility] Comment on above: Order Comment: Speci men Type: BLOOD SPECIMEN Ordering Facility: [facility] Address: [address] [place] [address] Performed By: #### Epifanio KCKMB, 51373-4, 2157-02, #### [facility] CLIA [id number] [address] [place] [address] [place] XR CHEST 1V FRONTAL PORTon 0 02-23-2022 XR CHEST 1V FRONTAL PORT * * *Final Report* * * DATE OF EXAM: Feb 23 2022 2:25PM JIX [id number] - XR CHEST 1V FRONTAL PORT / PROCEDURE REASON: Chest pain, nonspecific * * * * Physician Interpretation * * * * EXAMINATION: CHEST RADIOGRAPH (PORTABLE SINGLE VIEW AP) Exam Date/Time: 02/23/2022 2:25 PM Clinical History: Chest pain, nonspecific MQ: [id number] Comparison: Same day RESULT: Lines, tubes, and devices: None. Lungs and pleura: Lungs remain hypoinflated with partial atelectasis in the medial bases. Prominence of the lung markings in the perihilar and basilar regions is likely secondary to crowded vessels, given the low lung volume. This could limit the evaluation for subtle interstitial or bronchial abnormalities in these regions. No pleural effusion or pneumothorax. Cardiomediastinal silhouette: Heart is enlarged. Thoracic aorta is ectatic and tortuous with atherosclerotic calcifications. Other: Median sternotomy. IMPRESSION: See result. Sales Route Driver: PSCB Transcribe Date/Time: Feb 23 2022 2:58P Dictated by : KENYATTA MICHEL MD This examination was interpreted and the report reviewed and electronically signed by: KENYATTA MICHEL MD on Feb 23 2022 2:59PM EST [id number] Normal [facility] aPTT PPPon 02-23-2022 aPTT Coag (PPP) [Time] 31.0 s Normal 23.0-32.4 [facility] Comment on above: Order Comment: Speci men Type: BLOOD SPECIMEN Ordering Facility: [facility] Address: [address] [place] [address] Performed By: #### C KCKMB, 98050-6, 2157-6, 09079-7 #### [facility] CLIA [id number] [address] [place] [address] [place]ua 02-22-2022 CNPN Telephone (PODCCP) -- PAIGE MONTIEL ([id number]) 1955 M Date Time Provider Department 02/22/22 BRIAN CROWLEY II PODCCP During your visit today, we recorded the following information about you: Jonelle Micheal 02/22/2022 5:02 PM Signed Reason for call: Pt called and he would like to schedule an appointment with vascular surgeon. Home and cell number: : [phone] Diagnosis: Abdominal Aortic dissection Kind Regards, Jonelle Seetul Cathy Rangel Coord 02/23/2022 2:25 PM Signed Attempt #1 to call Paige Montiel to schedule for an appt w/vascular doctor. Message left on answering machine requesting patient to return call. Cathy Rangel Coord February 23, 2022 2:25 PM Oanh Virgen Coord 02/25/2022 12:05 PM Signed Patient currently admitted into [facility] with aortic dissscetion. Closing case since pt will probably need a hospital discharge appt Allergies As of Date: 02/22/2022 (Not on File) Date Reviewed: Never Reviewed Reason for Visit: Appointment [186] Prescriptions as of 02/25/2022 - amLODIPine (NORVASC) 10 mg tablet Take 10 mg by mouth once daily. - apixaban (ELIQUIS) 5 mg tab(s) Take 5 mg by mouth twice daily. - atorvastatin (LIPITOR) 40 mg tablet Take 40 mg by mouth once daily. - ezetimibe (ZETIA) 10 mg tablet Take 10 mg by mouth once daily. - levothyroxine (SYNTHROID) 150 mcg tablet Take 150 mcg by mouth daily before breakfast. - olmesartan (BENICAR) 40 mg tablet Take 40 mg by mouth once daily. - pantoprazole DR (PROTONIX) 40 mg tablet Take 40 mg by mouth once daily. - tamsulosin (FLOMAX) 0.4 mg Take 0.4 mg by mouth once daily. - tiZANidine (ZANAFLEX) 4 mg tablet Take 4 mg by mouth once daily. - triamterene-hydroCHLOROthi azide (MAXZIDE-25) 37.5-25 mg per tablet Take 1 tablet by mouth once daily. Facility-Administered Medications as of 02/25/2022 - chlorthalidone 25 mg tab(s) (HYGROTON) - spironolactone 25 mg tab(s) (ALDACTONE) - nitroprusside 50 mg in D5W 250 mL (NIPRIDE) - carvedilol 12.5 mg tab(s) (COREG) - benzocaine-menthol 1 Lozenge (CEPACOL) - sodium chloride 0.9 % (flush) 2-10 mL (BD POSIFLUSH) - NaCl 0.9% iv flush bag - sodium chloride 0.9 % (flush) 3-5 mL (BD POSIFLUSH) - sodium chloride 0.9 % (flush) 2-10 mL (BD POSIFLUSH) - perflutren lipid microspheres 1.1 mg/mL 1.3 mL injection (DEFINITY) - atorvastatin 40 mg tab(s) (LIPITOR) - ezetimibe 10 mg tab(s) (ZETIA) - pantoprazole DR 40 mg tab(s) (PROTONIX) - levothyroxine 150 mcg (SYNTHROID) - amLODIPine 10 mg tab(s) (NORVASC) - olmesartan 40 mg tab(s) (BENICAR) - tiZANidine 4 mg tab(s) (ZANAFLEX) - polyethylene glycol 3350 17 g packet (MIRALAX, GLYCOLAX) - potassium chloride iv piggyback 20 mEq/100 mL - potassium chloride ER 40-120 mEq tab(s) (K-DUR, KLOR-CON) - magnesium oxide 200 mg tab(s) (MAG-OX) - magnesium sulfate 1 g in D5W 100 mL - magnesium sulfate 2-8 g in sterile water 50 ml - tamsulosin 0.4 mg cap(s) (FLOMAX) Problem List As Of Date: 02/22/2022 (None) Encounter Status:Closed by JONELLE HENRIQUEZ on 02/22/22 Normal [facility] CT CHEST W CONon 02-18-2022 CT CHEST W CON EXAMINATION: CT CHES T W CON HISTORY: Disorder of artery COMPARISON: 02/08/2022, 12/20/2016 TECHNIQUE: Multi-planar CT images were created with IV contrast. Axial, Coronal, and Sagittal images. Dose reduction techniques were achieved by using automated exposure control and/or adjustment of mA and/or kV according to patient size and/or use of iterative reconstruction technique. FINDINGS: LUNGS: Minimal patchy parenchymal infiltrates most significant in the lingula, atelectasis and/or scar is favored PLEURA: No mass, effusion, or pneumothorax. VASCULATURE: No abnormality. KITA: No mass or adenopathy. MEDIASTINUM: No mass or adenopathy. CARDIAC: No enlargement or pericardial effusion. Moderate coronary atherosclerosis AORTA: Aortic annulus calcifications. Aneurysm of the proximal aortic arch measuring up to 4.6 cm axial image 29. Aneurysm of the descending thoracic aorta measuring up to 3.9 cm in diameter. Aortic dissection is identified extending from the aortic valve in the ascending aorta through the entire aortic arch into the descending thoracic and visualized abdominal aorta with contrast opacification of the true and false lumens. CHEST WALL: No mass or axillary adenopathy. BONES: Dextrocurvature. Median sternotomy closure devices and wires LIMITED ABDOMEN: . Scattered hypodensities in the liver, cysts are favored OTHER: Suboptimal contrast opacification possibly related to cardiac output. 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 Dissection extending from the ascending aorta into the descending thoracic and visualized abdominal aorta Electronically authenticated by: [facility] DALEY Date: 2022-02-18 15:17 Normal [facility] Complete Blood Count with Au to Diffon 02-08-2022 Basophils (Bld) [#/Vol] 0.04 10*3/uL Normal 0.00-0.20 [facility] Patient Safety Manager Comment on above: Performed By: #### C BCAD, CMP, LIPD #### [facility] [address], [place] [id number] Basophils/100 WBC (Bld) 0.5 % Normal [facility] Specialist Comment on above: Performed By: #### C BCAD, CMP, LIPD #### [facility] [address], [place] [id number] Eosinophils (Bld) [#/Vol] 0.14 10*3/uL Normal 0.02-0.50 [facility] Patient Safety Manager Comment on above: Performed By: #### C BCAD, CMP, LIPD #### [facility] [address], [place] [id number] Eosinophils/100 WBC (Bld) 1.9 % Normal [facility] Patient Safety Manager Comment on above: Performed By: #### C BCAD, CMP, LIPD #### [facility] [address], [place] [id number] Erythrocyte distribution width (RBC) [Ratio] 13.7 % Normal 11.0-15.0 [facility] Patient Safety Manager Comment on above: Performed By: #### C BCAD, CMP, LIPD #### [facility] [address], [place] [id number] Hematocrit (Bld) [Volume fraction] 43.8 % Normal 38.5-50.0 [facility] Specialist Comment on above: Performed By: #### C BCAD, CMP, LIPD #### [facility] [address], [place] [id number] Hemoglobin (Bld) [Mass/Vol] 14.3 g/dL Normal 13.0-17.1 [facility] Patient Safety Manager Comment on above: Performed By: #### C BCAD, CMP, LIPD #### [facility] [address], [place] [id number] Lymphocytes (Bld) [#/Vol] 1.7 10*3/uL Normal 0.9-3.9 [facility] Specialist Comment on above: Performed By: #### C BCAD, CMP, LIPD #### [facility] [address], [place] [id number] Lymphocytes/100 WBC (Bld) 23.0 % Normal [facility] Specialist Comment on above: Performed By: #### C BCAD, CMP, LIPD #### [facility] [address], [place] [id number] MCH (RBC) [Entitic mass] 29.1 pg Normal 27.0-33.0 [facility] Specialist Comment on above: Performed By: #### C BCAD, CMP, LIPD #### [facility] [address], [place] [id number] MCHC (RBC) [Mass/Vol] 32.6 g/dL Normal 32.0-36.0 [facility] Specialist Comment on above: Performed By: #### C BCAD, CMP, LIPD #### [facility] [address], [place] [id number] MCV (RBC) [Entitic vol] 89 fL Normal 80-[address] [facility] Specialist Comment on above: Performed By: #### C BCAD, CMP, LIPD #### [facility] [address], [place] [id number] Monocytes (Bld) [#/Vol] 1.0 10*3/uL High 0.2-0.9 [facility] Specialist Comment on above: Performed By: #### C BCAD, CMP, LIPD #### [facility] [address] [facility] [place] [id number] Monocytes/100 WBC (Bld) 14.0 % Normal N [facility] Comment on above: Performed By: #### C BCAD, CMP, LIPD #### [facility] [address] [facility] [place] [id number] Neutrophils (Bld) [#/Vol] 4.5 10*3/uL Normal 1.5-7.8 [facility] Comment on above: Performed By: #### C BCAD, CMP, LIPD #### [facility] [address] [place] [id number] Neutrophils/100 WBC (Bld) 60.3 % Normal [facility] Comment on above: Performed By: #### C BCAD, CMP, LIPD #### [facility] [address], [place] [id number] Platelet mean volume (Bld) [Entitic vol] 9.70 fL Normal 7.50-12.50 [facility] Comment on above: Performed By: #### C BCAD, CMP, LIPD #### [facility] [address] [facility] [id number] Platelets (Bld) [#/Vol] 219 10*3/uL Normal 140-400 [facility] Comment on above: Performed By: #### C BCAD, CMP, LIPD #### [facility] [address] [facility] [place] [id number] RBC (Bld) [#/Vol] 4.92 10*6/uL Normal 4.20-5.80 [facility] Comment on above: Performed By: #### C BCAD, CMP, LIPD #### [facility] [address] [facility] [id number] RDW-SD 44.9 fL Normal 37.0-50.0 [facility] Comment on above: Performed By: #### C BCAD, CMP, LIPD #### [facility] [address] [facility] [place] [id number] WBC (Bld) [#/Vol] 7.4 10*3/uL Normal 3.8-11.0 [place] Patient Safety Manager Comment on above: Performed By: #### C BCAD, CMP, LIPD #### [facility] [address], [place] [id number] Comprehensive Metabolic Pane arvin 02-08-2022 Albumin [Mass/Vol] 4.7 g/dL Normal 3.6-5.1 [facility] Patient Safety Manager Comment on above: Performed By: #### C BCAD, CMP, LIPD #### [facility] [address], [place] [id number] Albumin/Globulin [Mass ratio] 1.7 {ratio} Normal 1.0-2.5 [facility] Patient Safety Manager Comment on above: Performed By: #### C BCAD, CMP, LIPD #### [facility] [address], [place] [id number] ALP [Catalytic activity/Vol] 86 U/L Normal 40-129 [facility] Specialist Comment on above: Performed By: #### C BCAD, CMP, LIPD #### [facility] [address], [place] [id number] ALT [Catalytic activity/Vol] 22 U/L Normal 9-46 [facility] Specialist Comment on above: Result Comment: 08/11 Female reference range changed. Performed By: #### C BCAD, CMP, LIPD #### [facility] [address], [place] [id number] Anion gap [Moles/Vol] 16 mmol/L Normal 12-20 [facility] Specialist Comment on above: Result Comment: Effe ctive 09/16/2019 reference range changed. Performed By: #### C BCAD, CMP, LIPD #### [facility] [address], [place] [id number] AST [Catalytic activity/Vol] 30 U/L Normal 10-40 [facility] Specialist Comment on above: Performed By: #### C BCAD, CMP, LIPD #### [facility] [address], [place] [id number] Bilirubin [Mass/Vol] 0.68 mg/dL Normal 0.30-1.20 [facility] Specialist Comment on above: Performed By: #### C BCAD, CMP, LIPD #### [facility] [address], [place] [id number] BUN/CREA 26 Ratio High 6-22 [facility] Comment on above: Performed By: #### C BCAD, CMP, LIPD #### [facility] [address], [place] [id number] Calcium [Mass/Vol] 9.3 mg/dL Normal 8.6-10.2 [facility] Comment on above: Performed By: #### C BCAD, CMP, LIPD #### [facility] [address], [place] [id number] Chloride [Moles/Vol] 105 mmol/L Normal 98-107 [facility] Comment on above: Performed By: #### C BCAD, CMP, LIPD #### [facility] [address], [place] [id number] CO2 [Moles/Vol] 23 mmol/L Normal 20-31 [facility] Comment on above: Performed By: #### C BCAD, CMP, LIPD #### [facility] [address], [place] [id number] Creatinine [Mass/Vol] 0.8 mg/dL Normal 0.7-1.4 [facility] Comment on above: Performed By: #### C BCAD, CMP, LIPD #### [facility] [address], [place] [id number] eGFRAA 126 mL/min/1.73m2 Normal >60 [facility] Specialist Comment on above: Performed By: #### C BCAD, CMP, LIPD #### [facility] [address], [place] [id number] eGFRNAA 104 mL/min/1.73m2 Normal >60 [facility] Specialist Comment on above: Performed By: #### C BCAD, CMP, LIPD #### [facility] [address], [place] [id number] Globulin (S) [Mass/Vol] 2.8 g/dL Normal 1.9-3.7 [facility] Comment on above: Performed By: #### C BCAD, CMP, LIPD #### [facility] [address], [place] [id number] Glucose [Mass/Vol] 107 mg/dL High 65-99 [place] [place] Patient Safety Manager Comment on above: Result Comment: For FASTING Glucose --- ADA reference ranges: Normal 65-99 mg/dl Prediabetes 100-125 Diabetes >/= 126 Performed By: #### C BCAD, CMP, LIPD #### [facility] [address], [place] [id number] Potassium [Moles/Vol] 3.9 mmol/L Normal 3.5-5.5 [facility] Comment on above: Performed By: #### C BCAD, CMP, LIPD #### [facility] [address], [place] [id number] Protein [Mass/Vol] 7.5 g/dL Normal 6.1-8.1 [facility] [place] Patient Safety Manager Comment on above: Performed By: #### C BCAD, CMP, LIPD #### [facility] [address], [place] [id number] Sodium [Moles/Vol] 140 mmol/L Normal 135-146 [facility] Patient Safety Manager Comment on above: Performed By: #### C BCAD, CMP, LIPD #### [facility] [address], [place] [id number] Urea nitrogen [Mass/Vol] 19 mg/dL Normal 7-25 [facility] Patient Safety Manager Comment on above: Performed By: #### C BCAD, CMP, LIPD #### [facility] [address], [place] [id number] Hemoglobin A1Con 02-08-2022 EAG 119.76 Normal [facility] Specialist Comment on above: Performed By: #### A 1C #### [facility] [address], [place] [id number] HbA1c (Bld) [Mass fraction] 5.8 % Normal 4.0-6.0 [facility] Patient Safety Manager Comment on above: Performed By: #### A 1C #### [facility] [address], [place] [id number] Lipid Panelon 02-08-2022 Cholesterol [Mass/Vol] 100 mg/dL Low 125-200 No rthern [facility] Comment on above: Result Comment: Low risk < 200mg/dL Borderline risk 201-239 mg/dl High risk > or equal to 240 Performed By: #### C BCAD, CMP, LIPD #### [facility] [address], [place] [id number] Cholesterol in HDL [Mass/Vol] 36 mg/dL Low >40 [facility] Specialist Comment on above: Result Comment: High Cardiovascular Risk HDL <40 mg/dL Low Cardiovascular Risk HDL > or equal to 60 mg/dl Performed By: #### C BCAD, CMP, LIPD #### [facility] [address], [place] [id number] Cholesterol in LDL [Mass/Vol] 55 mg/dL Normal [facility] Comment on above: Result Comment: LDL ATP III CLASSIFICATION LDL less than 100 mg/dl Optimal LDL 100-129 mg/dl Near or above optimal LDL 130-159 Borderline high LDL 160-189 High LDL greater than 189 mg/dl Very High Performed By: #### C BCAD, CMP, LIPD #### [facility] [address], [place] [id number] Cholesterol in VLDL [Mass/Vol] 9 mg/dL Normal [facility] Comment on above: Performed By: #### C BCAD, CMP, LIPD #### [facility] [address], [place] [id number] Cholesterol.total/Audrey sterol in HDL [Mass ratio] 3 {ratio} Normal [facility] Comment on above: Performed By: #### C BCAD, CMP, LIPD #### [facility] [address], [place] [id number] Triglyceride [Mass/Vol] 45 mg/dL Normal 30-150 [facility] Comment on above: Result Comment: TRIG ATPIII CLASSIFICATIONS TRIG less than 150 mg/dl Normal TRIG 150-199 mg/dl Borderline High TRIG 200-500 mg/dl High TRIG greather than 500 mg/dl Very High Performed By: #### C BCAD, CMP, LIPD #### [facility] [address], [place] [id number] XR RIBS RT PA Sarah 2 XR RIBS RT PA CH EXAMINATION: XR RIBS RT PA CH HISTORY: Pleuritic pain COMPARISON: 12/30/2010 FINDINGS: LUNGS: No significant pulmonary parenchymal abnormalities. PLEURA: No pneumothorax, effusion, or pleural thickening. MEDIASTINUM: No visible mass or adenopathy. Median sternotomy closure devices CARDIAC: No cardiomegaly or cardiac silhouette abnormality. RIBS: No cortical contour abnormality or disruption OTHER: Enlarged aortic arch significantly increased from the prior exam IMPRESSION: No acute rib fracture Enlargement of the aortic arch Electronically authenticated by: [facility] DALEY Date: 2022-02-08 11:20 Normal [facility] Tobacco Screening.on 022 Adult depression screening assessment No -[facility] [employer] 250 DO Work Phone: Fall risk assessment a) No falls within the last year [facility] 250 DO Work Phone: Tobacco use status [facility]PH[facility] b) No M -[facility] [employer] [facility] 250 DO Work Phone: Echocardiogramon 01-28-[address], [address] [place] [address] TRANSTHORACIC ECHOCARDIOGRAM REPORT Patient Name: PAIGE Taylor Daniele Physician: [id number] [facility] [facility] Study Date: 01/28/2021 Referring [id number] DAY ROMANO Physician: MRN/PID: [id number] PCP: Brian Crowley Accession/Order#: [id number] Department [facility] Location: Date of : 1955 Fellow: Gender: M Nurse: Admit Date: [employer]: Jessenia Mackey [facility], T Height: 195.58 cm CC Report to: Weight: 161.94 kg Study Type: Echocardiogram BSA: 2.86 m2 Blood Pressure: 152 /90 mmHg Diagnosis/ICD: I71.01-Dissection of thoracic aorta Indication: Ascending Aorta Dissection-s/p Repair, HTN, Hyperlipidemia, Atrial Flutter-s/p Ablation, Michael, Morbid Obesity, Hypothyroid Procedure/CPT: Echo Complete w Full [id number] Study Detail: The following Echo studies were performed: 2D, M-Mode, Doppler and color flow. PHYSICIAN INTERPRETATION: Left Ventricle: The left ventricular systolic function is normal, with an estimated ejection fraction of 65%. There are no regional wall motion abnormalities. The left ventricular cavity size is normal. Left ventricular diastolic filling was not assessed. Left Atrium: The left atrium is mildly dilated. Right Ventricle: The right ventricle is normal in size. There is normal right ventricular global systolic function. Right Atrium: The right atrium is normal in size. Aortic Valve: The aortic valve was not well visualized. There is no evidence of aortic valve regurgitation. The peak instantaneous gradient of the aortic valve is 4.4 mmHg. The mean gradient of the aortic valve is 2.0 mmHg. Mitral Valve: The mitral valve is normal in structure. There is no evidence of mitral valve regurgitation. Tricuspid Valve: The tricuspid valve is structurally normal. There is trace tricuspid regurgitation. Pulmonic Valve: The pulmonic valve is not well visualized. There is no indication of pulmonic valve regurgitation. Pericardium: There is no pericardial effusion noted. Aorta: The aortic root is abnormal. There is mild dilatation of the aortic root. Systemic Veins: The inferior vena cava appears to be of normal size. In comparison to the previous echocardiogram(s): Poor quality study due to poor accustic window, No contrast given, no previous studies are available for comparison. CONCLUSIONS: 1. The left ventricular systolic function is normal with a 65% estimated ejection fraction. 2. Poor quality study due to poor accustic window, No contrast given, no previous studies are available for comparison. QUANTITATIVE DATA SUMMARY: 2D MEASUREMENTS: Normal Ranges: Ao Root d: 3.90 cm (2.0-3.7cm) LAs: 4.40 cm (2.7-4.0cm) RVIDd: 3.40 cm (0.9-3.6cm) IVSd: 1.30 cm (0.6-1.1cm) LVPWd: 1.00 cm (0.6-1.1cm) LVIDd: 5.40 cm (3.9-5.9cm) LVIDs: 4.40 cm LV Mass Index: 87.2 g/m2 LV % FS 18.5 % LV DIASTOLIC FUNCTION: Normal Ranges: MV Peak E: 1.19 m/s (0.7-1.2 m/s) MITRAL VALVE: Normal Ranges: MV Vmax: 1.22 m/s (<1.3m/s) MV peak P.0 mmHg (<5mmHg) MV mean P.7 mmHg (<48mmHg) AORTIC VALVE: Normal Ranges: AoV Vmax: 1.05 m/s (<1.7m/s) AoV Peak P.4 mmHg (<20mmHg) AoV Mean P.0 mmHg (1.7-11.5mmHg) LVOT Max Salas: 0.91 m/s (<1.1m/s) AoV VTI: 27.00 cm (18-25cm) LVOT VTI: 22.10 cm LVOT Diameter: 2.80 cm (1.8-2.4cm) AoV Area, VTI: 5.04 cm2 (2.5-5.5cm2) AoV Area,Vmax: 5.34 cm2 (2.5-4.5cm2) AoV Dimensionless Index: 0.82 PULMONIC VALVE: Normal Ranges: PV Max Salas: 0.7 m/s (0.6-0.9m/s) PV Max P.8 mmHg [id number] Day Romano MD, [facility] Electronically signed on 01/28/2021 at 6:30:29 PM Final Normal [facility] Cardiovascular Lab Reporton 07-18-2019 Cardiovascular Lab Report [facility] Patient Name: Dinesh Alejandro, [facility] Paige Taylor MR #: [id number] Department of Physician: Brian Do M.D. Division of Service Date: 07/17/2019 Cardiology Birthdate: 1955 Adult Cardiovascular Room #: [place] [address] Cardiovascular Laboratory Report INDICATION: The patient is a gentleman with a long history of atrial arrhythmias. He sees myself and Dr. Mariscal at the [facility]. He is in an atrial flutter. He was seen recently by Dr. Mariscal, who recommended for cardioversion. He takes Eliquis. I talked to him preprocedure and he had not missed any doses in quite some time well more than a month. Consent was obtained. He was brought to the EP suite. He was given conscious sedation with fentanyl and Versed. When adequate sedation was obtained, a single 300 joule synchronized shock was returned him to sinus rhythm. There were no apparent complications. ASSESSMENT: 1. Conscious sedation. 2. Cardioversion from atrial flutter to normal sinus rhythm. Electronically Signed by: Brian Do M.D. 07/18/2019 10:10 A Brian Do M.D. Date Dict: 07/17/2019/09:58 A/Brian Do M.D. Date Trans: 07/18/2019 06:17 Raven/emily [id number] cc: Brian Crowley M.D. 3 [facility] [id number] Huber Mariscal M.D. [address] [place] [address] Normal [facility] BASIC METABOLIC PANELon 11-0 Calcium [Mass/Vol] 9.3 mg/dL Normal 8.6-10.3 [facility] Comment on above: Performed By: #### 0 0071 #### [facility] [address] [facility] [place] [address], [facility] Chloride [Moles/Vol] 104 mmol/L Normal 98-107 [facility] Comment on above: Performed By: #### 0 0071 #### [facility] [address] [facility] [place] [address], [facility] CO2 [Moles/Vol] 27 mmol/L Normal 21-31 [facility] Comment on above: Performed By: #### 0 0071 #### [facility] [address] [facility] [place] [address], [facility] Creatinine [Mass/Vol] 0.87 mg/dL Normal 0.70-1.30 [facility] Comment on above: Performed By: #### 0 0071 #### [facility] [address] [place] [address], [place] GFR/1.73 sq M predicted among blacks MDRD (S/P/Bld) [Vol rate/Area] mL/min/{1.73_m2} Normal >60 [facility] Comment on above: Performed By: #### 0 0071 #### [facility] [address] [place] [address], [place] GFR/1.73 sq M predicted among non-blacks MDRD (S/P/Bld) [Vol rate/Area] mL/min/{1.73_m2} Normal >60 [facility] Comment on above: Performed By: #### 0 0071 #### [facility] [address] [place] [address], [place] Glucose [Mass/Vol] 101 mg/dL High 70-100 [facility] Comment on above: Performed By: #### 0 0071 #### [facility] [address] [place] [address], [place] Potassium [Moles/Vol] 3.6 mmol/L Normal 3.5-5.1 [facility] Comment on above: Performed By: #### 0 0071 #### [facility] [address] [place] [address], [place] Sodium [Moles/Vol] 137 mmol/L Normal 136-145 [facility] Comment on above: Performed By: #### 0 0071 #### [facility] [address] [place] [address], [place] Urea nitrogen [Mass/Vol] 21 mg/dL Normal 7-25 [facility] Comment on above: Performed By: #### 0 0071 #### [facility] [address] [place] [address], [place] CBC COMPLETE BLOOD COUNTon 09-16-2018 Erythrocyte distribution width (RBC) [Ratio] 13.4 % Normal 11.5-15.0 [facility] Comment on above: Performed By: #### 5 0608 #### [facility] [address] [place] [address], [facility] Hematocrit (Bld) [Volume fraction] 42.6 % Normal 39.0-50.0 [facility] Comment on above: Performed By: #### 5 0608 #### [facility] [address] [place] [address], [facility] Hemoglobin (Bld) [Mass/Vol] 13.7 g/dL Normal 13.0-17.0 [facility] Comment on above: Performed By: #### 5 0608 #### [facility] [address] [place] [address], [facility] MCH (RBC) [Entitic mass] 28.0 pg Normal 27.0-33.0 [facility] Comment on above: Performed By: #### 5 0608 #### [facility] [address] [facility] MCHC (RBC) [Mass/Vol] 32.2 g/dL Normal 32.0-35.0 [facility] Comment on above: Performed By: #### 5 0608 #### [facility] [address] [place] [address], [facility] MCV (RBC) [Entitic vol] 86.9 fL Normal 82.0-98.0 T angie [facility] Comment on above: Performed By: #### 5 0608 #### [facility] [address] [facility] Nucleated RBC/100 WBC (Bld) [Ratio] 0 % Normal 0-0 [facility] Comment on above: Performed By: #### 5 0608 #### [facility] [address] [place] [address], [facility] PLAT CNT 187 10*3/uL Normal 150-400 [facility] Comment on above: Performed By: #### 5 0608 #### [facility] [address] [place] [address], [facility] RBC (Bld) [#/Vol] 4.90 10*6/uL Normal 4.20-5.70 [facility] Comment on above: Performed By: #### 5 0608 #### [facility] [address] [place] [address], [place] WBC (Bld) [#/Vol] 7.53 10*3/uL Normal 4.00-10.60 [facility] Comment on above: Performed By: #### 5 0608 #### [facility] [address] [place] [address], [facility] Vital Signs Date Time Vital Sign Value Performing Clinician Facility 02-15-2024 08:40-0400 Diastolic blood pressure 50 mm[Hg] Day Romano MD Work Phone: [facility] 02-15-2024 08:40-0400 Systolic blood pressure 90 mm[Hg] Day Romano MD Work Phone: [facility] 02-15-2024 08:32-0400 Body height 195.6 cm Day Romano MD Work Phone: [facility] 02-15-2024 08:32-0400 Body mass index (BMI) [Ratio] 38.66 kg/m2 Day Romano MD Work Phone: [facility] 02-15-2024 08:32-0400 Body weight 147.87 kg Day Romano MD Work Phone: [facility] 02-15-2024 08:32-0400 Heart rate 61 /min Day Romano MD Work Phone: [facility] 01-10-2023 08:48-0400 Body height 195.58 cm Day Romano MD Work Phone: [facility] 250 DO Work Phone: 01-10-2023 08:48-0400 Body mass index (BMI) [Ratio] 39.25 kg/m2 Day Romano MD Work Phone: [facility] 250 DO Work Phone: 01-10-2023 08:48-0400 Body surface area Derived from formula 2.77 m2 Day Romano MD Work Phone: [facility] 250 DO Work Phone: 01-10-2023 08:48-0400 Body weight 150.14 kg Day Romano MD Work Phone: [facility] 250 DO Work Phone: 01-10-2023 08:48-0400 Diastolic blood pressure 68 mm[Hg] Day Romano MD Work Phone: [facility] 250 DO Work Phone: 01-10-2023 08:48-0400 Heart rate 60 /min Day Romano MD Work Phone: [facility] 250 DO Work Phone: 01-10-2023 08:48-0400 Systolic blood pressure 128 mm[Hg] Day Romano MD Work Phone: [facility] 250 DO Work Phone: 06-26-2022 11:16-0400 Diastolic blood pressure 72 mm[Hg] II Brian Crowley Work Phone: [facility] 06-26-2022 11:16-0400 Heart rate 61 /min II Brian Crowley Work Phone: [facility] 06-26-2022 11:16-0400 Respiratory rate 18 /min II Brian Crowley Work Phone: [facility] 06-26-2022 11:16-0400 SaO2% (BldA) [Mass fraction] 96 % II Brian Crowley Work Phone: [facility] 06-26-2022 11:16-0400 Systolic blood pressure 109 mm[Hg] II Brian Crowley Work Phone: [facility] 06-26-2022 06:00-0400 Body weight 140.7 kg II Brian Crowley Work Phone: [facility] 06-26-2022 04:00-0400 Body temperature 98.1 [degF] II Brian Crowley Work Phone: [facility] 06-25-2022 21:01-0400 Body height 195.58 cm II Brian Crowley Work Phone: [facility] 06-25-2022 18:56-0400 Diastolic blood pressure 78 mm[Hg] II Brian Crowley Work Phone: [facility] 06-25-2022 18:56-0400 Heart rate 74 /min II Brian Crowley Work Phone: [facility] 06-25-2022 18:56-0400 Respiratory rate 18 /min II Brian Crowley Work Phone: [facility] 06-25-2022 18:56-0400 SaO2% (BldA) [Mass fraction] 99 % II Brian Crowley Work Phone: [facility] 06-25-2022 18:56-0400 Systolic blood pressure 122 mm[Hg] II Brian Crowley Work Phone: [facility] 06-25-2022 14:30-0400 Body temperature 98 [degF] II Brian Crowley Work Phone: [facility] 06-25-2022 14:29-0400 Body height 195.58 cm II Brian Crowley Work Phone: [facility] 06-25-2022 14:29-0400 Body weight 139.7 kg II Brian Crowley Work Phone: [facility] 02-23-2022 11:30-0400 Diastolic blood pressure 80 mm[Hg] II Brian Crowley Work Phone: [facility] 02-23-2022 11:30-0400 Heart rate 69 /min II Brian Crowley Work Phone: [facility] 02-23-2022 11:30-0400 Respiratory rate 18 /min II Brian Crowley Work Phone: [facility] 02-23-2022 11:30-0400 SaO2% (BldA) [Mass fraction] 96 % II Brian Crowley Work Phone: [facility] 02-23-2022 11:30-0400 Systolic blood pressure 132 mm[Hg] II Brian Crowley Work Phone: [facility] 02-23-2022 09:29-0400 Body height 195.58 cm II Brian Crowley Work Phone: [facility] 02-23-2022 09:29-0400 Body mass index (BMI) [Ratio] 37.6 kg/m2 II Brian Crowley Work Phone: [facility] 02-23-2022 09:29-0400 Body temperature 98.4 [degF] II Brian Crowley Work Phone: [facility] 02-23-2022 09:29-0400 Body weight 144 kg II Brian Crowley Work Phone: [facility] 02-08-2022 00:00-0400 55 1 Day Romano MD Work Phone: [facility] 250 DO Work Phone: Comment on above: [facility] 01-31-2022 14:33-0400 Body height 195.58 cm Day Romano MD Work Phone: [facility] 250 DO Work Phone: 01-31-2022 14:33-0400 Body mass index (BMI) [Ratio] 37.83 kg/m2 Day Romano MD Work Phone: [facility] 250 DO Work Phone: 01-31-2022 14:33-0400 Body surface area Derived from formula 2.73 m2 Day Romano MD Work Phone: [facility] 250 DO Work Phone: 01-31-2022 14:33-0400 Body weight 144.7 kg Day Romano MD Work Phone: [facility] 250 DO Work Phone: 01-31-2022 14:33-0400 Diastolic blood pressure 88 mm[Hg] Day Romano MD Work Phone: [facility] 250 DO Work Phone: 01-31-2022 14:33-0400 Heart rate 60 /min Day Romano MD Work Phone: [facility] 250 DO Work Phone: 01-31-2022 14:33-0400 Systolic blood pressure 138 mm[Hg] Day Romano MD Work Phone: [facility] 250 DO Work Phone: Encounters Encounter Date Encounter Type Care Provider Facility Start: 04-29-2024 End: 04-29-2024 ambulatory BRIAN CROWLEY Not Available Start: 02-15-2024 End: 02-15-2024 ambulatory BRIAN CROWLEY Not Available Start: 02-15-2024 End: 02-15-2024 Office outpatient visit 25 minutes Day Romano MD Work Phone: [facility] Comment on above: Atrial flutter, unsp ecified type (Multi) (Primary Dx); High risk medication use; Mixed hyperlipidemia; Primary hypertension; Observed sleep apnea; BMI 38.0-38.9,adult; Hypothyroidism, unspecified type; Hypotension due to drugs; Bradycardia Start: 02-15-2024 End: 02-15-2024 ambulatory DAY Houston [facility] [place] Ambulatory Start: 02-12-2024 End: 02-12-2024 ambulatory CATHY DUMONT Not Available Start: 06-08-2023 ambulatory Day Romano Facility : Start: 04-24-2023 End: 04-24-2023 ambulatory Jose Owens Facility:[facility] Start: 04-24-2023 End: 04-24-2023 ambulatory II Brian Crowley Work Phone: [facility] Work Phone: Start: 04-24-2023 End: 04-24-2023 Departed Referred II Brian Crowley Work Phone: [facility] Start: 04-24-2023 End: 04-24-2023 ambulatory [facility] Facility:[facility] Start: 04-18-2023 End: 04-19-2023 ambulatory [facility] Facility:[facility] Start: 01-13-2023 End: 01-14-[address] DAY ROMANO Facility: Start: 01-10-2023 Office outpatient vi sit 25 minutes Day Romano MD Work Phone: [facility] 250 DO Work Phone: Start: 01-10-[address] Brian Crowley II Facility: Start: 06-25-2022 End: 06-26-2022 ambulatory Vivek Muñiz Facility:[facility] Start: 06-25-2022 End: 06-26-2022 Evaluation and management of inpatient II Brian Crowley Work Phone: [facility] [place] [facility] Start: 06-25-2022 End: 06-26-2022 observation encounter II Brian Crowley Work Phone: [facility] Work Phone: Start: 02-28-2022 Rx Renewal Day Romano MD Work Phone: [facility] 250 DO Work Phone: Start: 02-28-2022 Telephone encounter Lopez colon MD Work Phone: Cardiothoracic Comment on above: Insurance Authorizat ion Start: 02-23-2022 ambulatory Fabienne Armendariz JESSE YoungerDeboJASMIN Work Phone: Critical Care Start: 02-23-2022 End: 02-23-2022 Emergency department patient visit II Brianan Crowley Work Phone: [facility] Start: 02-22-2022 Telephone encounter Brian schreiber Work Phone: NOC Comment on above: Appointment Start: 02-18-2022 End: 02-19-[address] BRIAN CROWLEY Facility: Start: 02-08-2022 End: 02-09-2022 ambulatory Va Daley Facility: Start: 07-17-2019 End: 07-18-2019 Patient encounter procedure BRIAN DO Facility:[facility] Start: 06-11-2019 End: 06-11-2019 Telephone encounter Diane Vieira [facility] Comment on above: Referral Procedures Date Procedure Procedure Detail Performing Clinician Start: 06-25-2022 CT of chest II Brianan Crowley Work Phone: Start: 02-23-2022 Antibody screen Comment on above: Order Comment: Speci men Type: BLOOD SPECIMEN Ordering Facility: [facility] Address: [address] [place] [address] Performed By: #### 3 [id number], [id number] #### [facility] CLIA [id number] [address] [place] [address] [place] Start: 02-23-2022 SARS Antigen (LFIA) II Brian Crowley Work Phone: Start: 02-23-2022 Computed tomography of abdomen and pelvis with contrast II Brian Crowley Work Phone: Start: 02-23-2022 Plain chest X-ray II Rudy montes Keo Work Phone: Start: 02-23-2022 CT of chest II Brian Crowley Work Phone: Aortic valve repair Day vela MD Work Phone: Arthroplasty of knee Day Romano MD Work Phone: SARS Antigen (LFIA) II Xavier Crowley Work Phone: Surgical procedure o n thorax Day Romano MD Work Phone: Total colonoscopy Day sands MD Work Phone: Valvuloplasty of aor tic valve Day Romano MD Work Phone: Plan of Treatment Date Care Activity Detail Author Start: 02-09-2032 DTaP/Tdap/Td Vaccines (2 - Td or Tdap) DTaP/Tdap/Td Vaccines (2 - Td or Tdap) [facility] Start: 01-16-2026 Screening for malignant neoplasm of colon [facility] Start: 01-23-2025 End: 01-23-2025 Patient encounter procedure 01/23/2025 8:30 AM EDT Office Visit [address] [place] [address] Day Romano MD [address] [facility] [address] [place] [address] [facility] Start: 02-15-2024 End: 02-14-2025 Alanine aminotransferase [Enzymatic activity/volume] in Serum or Plasma by With P-5'-P Alanine Aminotransferase Lab Routine Mixed hyperlipidemia Expected: 02/15/2024 (Approximate), Expires: 02/14/2025 [facility] Service Area Work Phone: Comment on above: Expected: 02/15/2024 (Approximate), Expi res: 02/14/2025 Start: 02-15-2024 End: 02-14-2025 Aspartate aminotransferase [Enzymatic activity/volume] in Serum or Plasma by With P-5'-P Aspartate Aminotransferase Lab Routine Mixed hyperlipidemia Expected: 02/15/2024 (Approximate), Expires: 02/14/2025 [facility] Work Phone: Comment on above: Expected: 02/15/2024 (Approximate), Expi res: 02/14/2025 Start: 02-15-2024 End: 02-14-2025 Basic metabolic 2000 panel - Serum or Plasma Basic Metabolic Panel Lab Routine Atrial flutter, unspecified type (Multi) Expected: 02/15/2024 (Approximate), Expires: 02/14/2025 [facility] Work Phone: Comment on above: Expected: 02/15/2024 (Approximate), Expi res: 02/14/2025 Start: 02-15-2024 End: 02-14-2025 CBC panel - Blood by Automated count CBC Lab Routine Atrial flutter, unspecified type (Multi) High risk medication use Expected: 02/15/2024 (Approximate), Expires: 02/14/2025 [facility] Work Phone: Comment on above: Expected: 02/15/2024 (Approximate), Expi res: 02/14/2025 Start: 02-15-2024 End: 02-14-2025 Lipid 1996 panel - Serum or Plasma Lipid Panel Lab Routine Mixed hyperlipidemia Expected: 02/15/2024 (Approximate), Expires: 02/14/2025 [facility] Work Phone: Comment on above: Expected: 02/15/2024 (Approximate), Expi res: 02/14/2025 Start: 02-15-2024 End: 02-14-2025 Thyrotropin [Units/volume] in Serum or Plasma Thyroid Stimulating Hormone Lab Routine Hypothyroidism, unspecified type Expected: 02/15/2024 (Approximate), Expires: 02/14/2025 [facility] Work Phone: Comment on above: Expected: 02/15/2024 (Approximate), Expi res: 02/14/2025 Start: 06-08-2023 FUV, Provider: Day Romano, Status: Pen, Time: 8:40 AM FUV, Provider: Day Romano, Status: Pen, Time: 8:40 AM [facility] 250 DO Work Phone: Start: 05-12-2023 COVID-19 Vaccine ( season) COVID-19 Vaccine () [facility] Start: 01-10-2023 FUV, Provider: Day Romano, Status: Pen, Time: 8:40 AM FUV, Provider: Day Romano, Status: Pen, Time: 8:40 AM [facility] [address] DO Work Phone: Start: 06-30-2022 Blood chemistry [facility] Start: 06-30-2022 [facility] Start: 06-29-2022 Blood chemistry [facility] Start: 06-29-2022 [facility] Start: 06-28-2022 Blood chemistry [facility] Start: 06-28-2022 [facility] Start: 06-27-2022 Blood chemistry [facility] Start: 06-27-2022 [facility] Start: 06-26-2022 Creatine kinase [Enzymatic activity/volume] in Serum or Plasma [facility] Start: 06-26-2022 Troponin I.cardiac [Mass/volume] in Serum or Plasma by High sensitivity method [facility] Start: 06-26-2022 Creatine kinase [Enzymatic activity/volume] in Serum or Plasma [facility] Start: 06-26-2022 Troponin I.cardiac [Mass/volume] in Serum or Plasma by High sensitivity method [facility] Start: 06-26-2022 Blood chemistry [facility] Start: 06-26-2022 Magnesium measurement [facility] Start: 06-26-2022 Thyrotropin [Units/volume] in Serum or Plasma [facility] Start: 06-26-2022 Thyroxine (T4) free [Mass/volume] in Serum or Plasma [facility] Start: 06-26-2022 End: 06-26-2022 [facility] Start: 06-26-2022 Creatine kinase [Enzymatic activity/volume] in Serum or Plasma [facility] Start: 06-26-2022 Troponin I.cardiac [Mass/volume] in Serum or Plasma by High sensitivity method [facility] Start: 06-26-2022 [facility] Start: 06-25-2022 Sleep disorder assessment [facility] Start: 06-25-2022 [facility] Start: 06-25-2022 End: 06-25-2022 [facility] Start: 06-25-2022 Hospital admission [facility] Start: 04-18-2022 Pneumococcal Vaccine: 65+ Years (2 of 2 - PCV) Pneumococcal Vaccine: 65+ Years (2 of 2 - PCV) [facility] Start: 2019 Pneumococcal vaccination PNEUMOCOCCAL VACCINE SERIES (1 of 2 - PCV13) [facility] Start: 05-12-2019 Influenza vaccination INFLUENZA VACCINE (#1) [facility] Start: 2014 RSV patients and/or patients aged 60+ years (1 - 1-dose 60+ series) RSV patients and/or patients aged 60+ years (1 - 1-dose 60+ series) [facility] Start: 2004 Colonoscopy COLON CANCER SCREENING DISCUSSION [facility] Start: 2004 Prostate specific antigen measurement PROSTATE CANCER SCREENING DISCUSSION [facility] Start: 2004 Zoster vaccine hzv live for subcutaneous use ZOSTER (SHINGLES) VACCINE (1 of 2) [facility] Start: 1994 Fasting lipid profile LIPID SCREENING [facility] Start: 1973 Third diphtheria, tetanus and acellular pertussis (DTaP) vaccination TDAP (ADULT) [facility] Start: 1972 Diabetes mellitus screening Diabetes Screening [facility] Start: 1972 Hepatitis C screening Hepatitis C Screening [facility] Start: 1972 Tetanus vaccination TETANUS [facility] Start: 1954 Hepatitis C antibody, confirmatory test HEPATITIS C VIRUS SCREENING [facility] Start: 1954 Lipid panel Lipid Panel [facility] Start: 1954 Medicare Annual Wellness Visit Medicare Annual Wellness Visit (AWV) [facility] Start: 1954 Screening for malignant neoplasm of colon [facility] Start: 1954 Thyroid stimulating hormone measurement TSH Level [facility] Creatine kinase [Enzymatic activity/volume] in Serum or Plasma [facility] Work Phone: Creatine kinase MB isoenzyme/total creatine kinase ratio measurement [facility] Work Phone: Creatine kinase.MB [Mass/volume] in Serum or Plasma [facility] Work Phone: Patient Education Aortic Dis[facility] Work Phone: Patient referral [facility] Work Phone: Troponin I.cardiac [Mass/volume] in Serum or Plasma by High sensitivity method [facility] Work Phone: Immunizations Immunization Date Immunization Notes Care Provider Micheal duran 06-28-2022 Pfizer COVID-19 vacc ine, bivalent, age 12 years and older (30 mcg/0.3 mL) Day Romano MD Work Phone: [facility] Work Phone: 06-16-2022 influenza, seasonal, injectable II Brian Crowley Work Phone: [facility] 06-13-2022 Flu vaccine, quadrivalent, high-dose, preservative free, age 65y+ (FLUZONE) Day Romano MD Work Phone: [facility] Work Phone: 02-08-2022 tetanus toxoid, redu parviz diphtheria toxoid, and acellular pertussis vaccine, adsorbed Day Romano MD Work Phone: [facility] Work Phone: 06-28-2021 COVID-19 mRNA Bivale nt Booster (Pfizer) II Brian Crowley Work Phone: [facility] 06-28-2021 Pfizer-BioNTArtisoft COVI D-19 Vacc 30 MCG/0.3ML Intramuscular Suspension Day Romano MD Work Phone: [facility] 06-18-2021 zoster vaccine recombinant Day Romano MD Work Phone: [facility] 250 DO Work Phone: 06-04-2021 influenza, high dose seasonal, preservative-free Day Romano MD Work Phone: [facility] Work Phone: 05-12-2021 influenza virus vacc ine, unspecified formulation Day Romano MD Work Phone: [facility] 250 DO Work Phone: 04-18-2021 pneumococcal polysaccharide vaccine, 23 valent Day Romano MD Work Phone: [place] [address] DO Work Phone: 04-18-2021 zoster vaccine recombinant Day Romano MD Work Phone: [place] [address] DO Work Phone: 11-25-2020 Pfizer-BioNTech COVI D-19 Vacc 30 MCG/0.3ML Intramuscular Suspension Day Romano MD Work Phone: [facility] 11-04-2020 Pfizer-BioNTech COVI D-19 Vacc 30 MCG/0.3ML Intramuscular Suspension Day Romano MD Work Phone: [facility] 06-11-2020 influenza virus vacc ine, unspecified formulation Day Romano MD Work Phone: [facility] 250 DO Work Phone: 07-04-2019 pneumococcal polysaccharide vaccine, 23 valent Day Romano MD Work Phone: [facility] 250 DO Work Phone: 06-11-2019 influenza, high dose seasonal, preservative-free Day Romano MD Work Phone: [facility] 250 DO Work Phone: 05-12-2019 influenza, high dose seasonal, preservative-free Day Romano MD Work Phone: [facility] 250 DO Work Phone: 07-12-2018 Influenza, injectabl e, Madin Makenzie Canine Kidney, preservative free, quadrivalent Day Romano MD Work Phone: [place] [address] DO Work Phone: 09-11-2017 pneumococcal polysaccharide vaccine, 23 valent Day Romano MD Work Phone: [place] [address] DO Work Phone: 06-05-2017 seasonal influenza, intradermal, preservative free Day Romano MD Work Phone: [place] [address] DO Work Phone: 07-20-2016 influenza, injectabl e, quadrivalent, preservative free Day Romano MD Work Phone: [place] [address] DO Work Phone: 09-25-2015 influenza, seasonal, injectable, preservative free Day Romano MD Work Phone: [place] [address] DO Work Phone: Payers Date Payer Category Payer Unknown 2023 Unknown [id number] 2022 Self-pay [id number] 2022 Unknown [id number] 2019 Medicare MEDICARE MEDICAR E PART A AND B [id number] 2019-Present [address] [place] [address] [id number] 2019 Medicare MEDICARE MEDICAR E A AND B [id number] 2019-Present [phone] [address] [address] [place] [address] Medicare [id number] 2019 Unknown [id number] 1959 Medicare [id number] 1959 Unknown [id number] 1954 Unknown [id number] 1954 Unknown [id number] 1954 Unknown [id number] 1954 Unknown [id number] 1954 Unknown [id number] 1954 Unknown [id number] 1954 Unknown [id number] [id number] 1954 Unknown [id number] 1954 Unknown [id number] 1954 Unknown [id number] 1954 Unknown [id number] 1954 Unknown [id number] [id number] [address] [place] [id number] Unknown [id number] Unknown [id number] Social History Date Type Detail Facility Tobacco smoking stat [facility] Unknown if ever smoked [facility] Start: 1955 Sex Assigned At Not on file [facility] Tobacco smoking stat [facility] Tobacco smoking consumption unknown [facility] Start: 02-23-2022 End: 11-06-2023 Tobacco smoking status MOIS Never smoked tobacco (finding) [facility] Start: 1955 Sex Assigned At Male F [facility] Start: 02-23-2022 Tobacco use and exposure Smokeless tobacco non-user [facility] Work Phone: Start: 02-23-2022 History SDOH Financial 5 [facility] Start: 02-23-2022 History SDOH Food Worry 1 [facility] Start: 02-23-2022 History SDOH Transpo rt Med 2 [facility] Start: 02-15-2024 No illicit drug use No illicit drug use [facility] 250 DO Work Phone: Comment on above: 4 CUPS OF COFFEE EMILY LY; ON THE WEEKENDS; Start: 02-15-2024 Alcoholic beverage intake Current drinker of alcohol (finding) [facility] Work Phone: Start: 02-15-2024 Tobacco use panel [facility] Work Phone: Start: 02-05-2024 End: 02-15-2024 Exposure to SARS-CoV-2 (event) Not sure [facility] Goals Date Patient Goal Desired Activity /State Functional Status Date Assessment Result Facility 06-26-2022 Functional status Patient at Baseline [facility] Work Phone: 06-25-2022 Functional status Disability Sta tus Patient at Baseline [facility] Work Phone: Mental Status Date Assessment Result Facility 06-26-2022 Cognitive function Cognitive Sta s Patient at Baseline [facility] Work Phone: Clinical Notes 02-22-2022 to 02-15-2024 Day Romano MD - 02/15/2024 8:30 AM EDTPatient InstructionsAttachmentsTelephone Encounter - Isadora Singleton Coord - 02/28/2022 12:20 PM EDT Note Date & Type Note Facility 02-15-2024 History of Presen t illness Narrative Subjective Paige Montiel is a 68 y.o. male Chief Complaint Follow-up HPI Patient is in the office for follow-up for the problems noted below. He spent the winter in [place] and plays softball. He had no events since he was last seen in the office. His weight though has increased more than 15 pounds and he attributes that to drinking a lot of beer and eating junk food. He was reeducated about the need to change these habits. He has not had any blood work since he was last seen in the office. He is scheduled today to be seen by his PCP. He reports occasional orthostatic dizziness and when his blood pressure check in the office he was found to have significant hypotension with a systolic blood pressure only 90 mmHg. Therefore amlodipine will be discontinued. He was also noted to have asymptomatic bradycardia, I advised patient to monitor his blood pressure reading at home and if the systolic pressure remains below 110 mmHg to let me know since at that time I will cut back on his beta-megan therapy as well. Assessment/recommendations: 1-permanent atrial flutter that remains asymptomatic status post failed radiofrequency ablation.. The patient will be kept on the policy of rate control and anticoagulation due to lack of symptoms, Nuclear stress test at [facility] 2018 was normal, echocardiogram 2021 showed normal ejection fraction in 2020 2-high-risk medication with anticoagulation with no bleeding complications, CBC is ordered 3-essential hypertension on medical therapy, currently he is hypotensive with symptoms of orthostatic dizziness. Amlodipine will be discontinued. 4-sleep apnea on CPAP machine 5-hyperlipidemia on statin therapy,Lipid profile is ordered 6-Class II obesity, patient was reminded that he has gained more than 15 pounds since he was last seen in the office and education to cut back calorie consumption especially from beer was provided 7-hypothyroidism on replacement therapy followed by PCP 8-status post type I ascending aortic dissection status post surgical repair in [place], most recent CT scan was June 2022 with no progression or changes Review of Systems Neurological: Positive for dizziness. All other systems reviewed and are negative. Vitals: 02/15/24 0832 02/15/24 0840 BP: 91/52 90/50 BP Location: Left arm Right arm Patient Position: Sitting Sitting Pulse: 61 Weight: 148 kg (326 lb) Height: 1.956 m (6' 5 ) Objective Physical Exam Constitutional: Appearance: Normal appearance. HENT: Nose: Nose normal. Neck: Vascular: No carotid bruit. Cardiovascular: Rate and Rhythm: Bradycardia present. Pulses: Normal pulses. Heart sounds: Normal heart sounds. Pulmonary: Effort: Pulmonary effort is normal. Abdominal: General: Bowel sounds are normal. Palpations: Abdomen is soft. Musculoskeletal: General: Normal range of motion. Cervical back: Normal range of motion. Right lower leg: No edema. Left lower leg: No edema. Skin: General: Skin is warm and dry. Neurological: General: No focal deficit present. Mental Status: He is alert. Psychiatric: Mood and Affect: Mood normal. Behavior: Behavior normal. Thought Content: Thought content normal. Judgment: Judgment normal. Allergies Patient has no known allergies. Current Medications Current Outpatient Medications: apixaban (Eliquis) 5 mg tablet, Take 1 tablet (5 mg) by mouth 2 times a day., Disp: , Rfl: atorvastatin (Lipitor) 40 mg tablet, Take 1 tablet (40 mg) by mouth once daily., Disp: , Rfl: carvedilol (Coreg) 6.25 mg tablet, Take 1 tablet (6.25 mg) by mouth 2 times daily (morning and late afternoon)., Disp: , Rfl: ezetimibe (Zetia) 10 mg tablet, Take 1 tablet (10 mg) by mouth once daily., Disp: , Rfl: GABAPENTIN, BULK, MISC, 2 times a day., Disp: , Rfl: olmesartan (BENIcar) 40 mg tablet, Take 1 tablet (40 mg) by mouth once daily., Disp: , Rfl: pantoprazole (ProtoNix) 40 mg EC tablet, Take 1 tablet (40 mg) by mouth once daily., Disp: , Rfl: potassium chloride CR 20 mEq ER tablet, Take 1 tablet (20 mEq) by mouth once daily. Do not crush or chew., Disp: , Rfl: tamsulosin (Flomax) 0.4 mg 24 hr capsule, Take 1 capsule (0.4 mg) by mouth once daily., Disp: , Rfl: triamterene-hydrochlorothiazid (Maxzide-25) 37.5-25 mg tablet, Take 1 tablet by mouth once daily., Disp: , Rfl: Assessment/Plan 1. Atrial flutter, unspecified type (Multi) Follow Up In Cardiology Basic Metabolic Panel CBC Basic Metabolic Panel CBC 2. High risk medication use CBC CBC 3. Mixed hyperlipidemia Alanine Aminotransferase Aspartate Aminotransferase Lipid Panel Alanine Aminotransferase Aspartate Aminotransferase Lipid Panel 4. Primary hypertension 5. Observed sleep apnea 6. BMI 38.0-38.9,adult 7. Hypothyroidism, unspecified type Thyroid Stimulating Hormone Thyroid Stimulating Hormone 8. Hypotension due to drugs 9. Bradycardia Scribe Attestation By signing my name below, I, Kelley Murray LPN attest that this documentation has been prepared under the direction and in the presence of Day Romano MD. Provider Attestation - Scribe documentation All medical record entries made by the Scribe were at my direction and personally dictated by me. I have reviewed the chart and agree that the record accurately reflects my personal performance of the history, physical exam, discussion and plan. documented in this encounter [facility] Work Phone: 02-15-2024 Instructions Marina Toribio LPN - 02/15/2024 8:30 AM EDT Please bring all medicines, vitamins, and herbal supplements with you when you come to the office. Prescriptions will not be filled unless you are compliant with your follow up appointments or have a follow up appointment scheduled as per instruction of your physician. Refills should be requested at the time of your visit. BMI was above normal measurement. Current weight: 148 kg (326 lb) Weight change since last visit (-) denotes wt loss 17 lbs Weight loss needed to achieve BMI 25: 115.6 Lbs Weight loss needed to achieve BMI 30: 73.5 Lbs Provided instructions on dietary changes Provided instructions on exercise. The following attachments cannot be sent through Care Everywhere.Heart Healthy Diet (Armenian)documented in this encounter [facility] Work Phone: 04-25-2023 Note [id number] Note [id number] 04-24-2023 Note [facility] SURGERY Clinical Discharge Summary PERSON INFORMATION Name PAIGE MONTIEL Age 67 Years 1955 Sex MALE Language Armenian PCP BRIAN CROWLEY Marital Status Phone Med Service Ambulatory Surgery Acct# Arrival 04/24/2023 07:46:32 Visit Reason SURGERY-RIGHT ULNAR NERVE TRANSPOSTION Acuity LOS 006 02:21 Address: [address] [place] [address] Comment: PROVIDER INFORMATION VITALS INFORMATION Vital Sign Triage Latest Temp Oral Temp Temporal Temp Intravascular Temp Axillary Temp Rectal 02 Sat 100 % 100 % Respiratory Rate Peripheral Pulse Rate Apical Heart Rate Blood Pressure / 83 mmHg / 65 mmHg Comment: MEDICAL INFORMATION Allergy Info: No known allergies Prescriptions Given: amLODIPine (amLODIPine 10 mg oral tablet) 1 tab(s) Oral every day. apixaban (apixaban 5 mg oral tablet) 1 tab(s) Oral 2 times a day. atorvastatin (atorvastatin 40 mg oral tablet) 1 tab(s) Oral every day. carvedilol (carvedilol 12.5 mg oral tablet) 1 tab(s) Oral 2 times a day. chlorthalidone (chlorthalidone 25 mg oral tablet) 1 tab(s) Oral every day. ezetimibe (Zetia 10 mg oral tablet) 1 tab(s) Oral every day. gabapentin (gabapentin 100 mg oral capsule) 2 cap(s) Oral 3 times a day. levothyroxine (levothyroxine 175 mcg (0.175 mg) oral tablet) 1 tab(s) Oral every day. olmesartan (olmesartan 40 mg oral tablet) 1 tab(s) Oral every day. pantoprazole (pantoprazole 40 mg oral delayed release tablet) 1 tab(s) Oral every day. potassium chloride (Klor-Con M20 oral tablet, extended release) 1 tab(s) Oral every day. spironolactone (spironolactone 50 mg oral tablet) 1 tab(s) Oral every day. tamsulosin (tamsulosin 0.4 mg oral capsule) 1 cap(s) Oral every day. Medication List: Medications to Continue That Have Not Changed Other Medications amLODIPine (amLODIPine 10 mg oral tablet) 1 tab(s) Oral every day. apixaban (apixaban 5 mg oral tablet) 1 tab(s) Oral 2 times a day. atorvastatin (atorvastatin 40 mg oral tablet) 1 tab(s) Oral every day. carvedilol (carvedilol 12.5 mg oral tablet) 1 tab(s) Oral 2 times a day. chlorthalidone (chlorthalidone 25 mg oral tablet) 1 tab(s) Oral every day. ezetimibe (Zetia 10 mg oral tablet) 1 tab(s) Oral every day. gabapentin (gabapentin 100 mg oral capsule) 2 cap(s) Oral 3 times a day. levothyroxine (levothyroxine 175 mcg (0.175 mg) oral tablet) 1 tab(s) Oral every day. olmesartan (olmesartan 40 mg oral tablet) 1 tab(s) Oral every day. pantoprazole (pantoprazole 40 mg oral delayed release tablet) 1 tab(s) Oral every day. potassium chloride (Klor-Con M20 oral tablet, extended release) 1 tab(s) Oral every day. spironolactone (spironolactone 50 mg oral tablet) 1 tab(s) Oral every day. tamsulosin (tamsulosin 0.4 mg oral capsule) 1 cap(s) Oral every day. Medications to Continue That Have Not Changed Other Medications amLODIPine (amLODIPine 10 mg oral tablet) 1 tab(s) Oral every day. apixaban (apixaban 5 mg oral tablet) 1 tab(s) Oral 2 times a day. atorvastatin (atorvastatin 40 mg oral tablet) 1 tab(s) Oral every day. carvedilol (carvedilol 12.5 mg oral tablet) 1 tab(s) Oral 2 times a day. chlorthalidone (chlorthalidone 25 mg oral tablet) 1 tab(s) Oral every day. ezetimibe (Zetia 10 mg oral tablet) 1 tab(s) Oral every day. gabapentin (gabapentin 100 mg oral capsule) 2 cap(s) Oral 3 times a day. levothyroxine (levothyroxine 175 mcg (0.175 mg) oral tablet) 1 tab(s) Oral every day. olmesartan (olmesartan 40 mg oral tablet) 1 tab(s) Oral every day. pantoprazole (pantoprazole 40 mg oral delayed release tablet) 1 tab(s) Oral every day. potassium chloride (Klor-Con M20 oral tablet, extended release) 1 tab(s) Oral every day. spironolactone (spironolactone 50 mg oral tablet) 1 tab(s) Oral every day. tamsulosin (tamsulosin 0.4 mg oral capsule) 1 cap(s) Oral every day. Medications to Continue That Have Not Changed Other Medications amLODIPine (amLODIPine 10 mg oral tablet) 1 tab(s) Oral every day. apixaban (apixaban 5 mg oral tablet) 1 tab(s) Oral 2 times a day. atorvastatin (atorvastatin 40 mg oral tablet) 1 tab(s) Oral every day. carvedilol (carvedilol 12.5 mg oral tablet) 1 tab(s) Oral 2 times a day. chlorthalidone (chlorthalidone 25 mg oral tablet) 1 tab(s) Oral every day. ezetimibe (Zetia 10 mg oral tablet) 1 tab(s) Oral every day. gabapentin (gabapentin 100 mg oral capsule) 2 cap(s) Oral 3 times a day. levothyroxine (levothyroxine 175 mcg (0.175 mg) oral tablet) 1 tab(s) Oral every day. olmesartan (olmesartan 40 mg oral tablet) 1 tab(s) Oral every day. pantoprazole (pantoprazole 40 mg oral delayed release tablet) 1 tab(s) Oral every day. potassium chloride (Klor-Con M20 oral tablet, extended release) 1 tab(s) Oral every day. spironolactone (spironolactone 50 mg oral tablet) 1 tab(s) Oral every day. tamsulosin (tamsulosin 0.4 mg oral capsule) 1 cap(s) Oral every day. Comment: Lab and Radiology Results Laborator (more content not included)... [facility] 02-28-2022 Miscellaneous Notes Need copy of insurance card documented in this encounter [facility] 02-26-2022 Note HNO ID: [id number] Author: Juaquin Vaca MD Service: Cardiovascular Medicine Author Type: Physician Type: Progress Notes Filed: 02/26/2022 1:58 PM Note Text: CARDIOVASCULAR MEDICINE DAILY PROGRESS NOTE Paige Doss Dinesh [id number] PRIMARY SERVICE: Cardiovascular Medicine: Imaging HOSPITAL DAY: # 3 INTERVAL HISTORY NAEON Transferred to [facility] in stable condition Afebrile, HR 50s, BP 150-160s, 95% RA Labs pending this AM PHYSICAL EXAM BP 163/85 Pulse (!) 58 Temp 36.4 ?C (97.5 ?F) (Oral) Resp 22 Ht 195.6 cm (6' 5 ) Wt (!) 142.3 kg (313 lb 11.2 oz) SpO2 95% BMI 37.20 kg/m? Intake/Output Summary (Last 24 hours) at 02/26/2022 0805 Last data filed at 02/25/2022 2100 Gross per 24 hour Intake 480 ml Output 1925 ml Net -1445 ml General Appearance: No acute distress HEENT: PERRLA and JVD - no Lungs: Clear and Respiratory effort: normal Heart: Regular rate AND rhythm and S1, S2 normal Abdomen: Soft, Round, Non-tender and Bowel sounds present Skin: Warm and Dry Musculoskeletal: No deformities Neurologic/Psychiatric: Oriented to time, place AND person MEDICATIONS Current Facility-Administered Medications Medication Dose Route Frequency - sodium chloride 0.9 % (flush) 2-10 mL (BD POSIFLUSH) 2-10 mL INTRAVENOUS q 12 H - NaCl 0.9% iv flush bag 20 mL INTRAVENOUS PRN - sodium chloride 0.9 % (flush) 3-5 mL (BD POSIFLUSH) 3-5 mL INTRAVENOUS q 12 H - sodium chloride 0.9 % (flush) 2-10 mL (BD POSIFLUSH) 2-10 mL INTRAVENOUS DIRECTED PRN And - perflutren lipid microspheres 1.1 mg/mL 1.3 mL injection (DEFINITY) 1.3 mL INTRAVENOUS DIRECTED PRN - atorvastatin 40 mg tab(s) (LIPITOR) 40 mg ORAL DAILY - ezetimibe 10 mg tab(s) (ZETIA) 10 mg ORAL DAILY - pantoprazole DR 40 mg tab(s) (PROTONIX) 40 mg ORAL DAILY - levothyroxine 150 mcg (SYNTHROID) 150 mcg ORAL BEFORE BREAKFAST DAILY - amLODIPine 10 mg tab(s) (NORVASC) 10 mg ORAL DAILY - olmesartan 40 mg tab(s) (BENICAR) 40 mg ORAL DAILY - tiZANidine 4 mg tab(s) (ZANAFLEX) 4 mg ORAL TID PRN - polyethylene glycol 3350 17 g packet (MIRALAX, GLYCOLAX) 17 g ORAL DAILY PRN - tamsulosin 0.4 mg cap(s) (FLOMAX) 0.4 mg ORAL DAILY - carvedilol 12.5 mg tab(s) (COREG) 12.5 mg ORAL BID w MEALS - benzocaine-menthol 1 Lozenge (CEPACOL) 1 Lozenge MUCOUS MEMBRANE (TOPICAL MOUTH AND THROAT) q 2 H PRN - chlorthalidone 25 mg tab(s) (HYGROTON) 25 mg ORAL DAILY - spironolactone 25 mg tab(s) (ALDACTONE) 25 mg ORAL DAILY DATA Recent Labs 02/25/22 0015 02/24/22 0023 02/23/22 1228 WBC 9.34 8.41 9.21 HB 12.4* 12.4* 14.0 HCT 38.4* 38.1* 42.8 PLT 202 198 201 Recent Labs 02/25/22 1752 02/25/22 0015 02/24/22 0023 02/23/22 1800 02/23/22 1228 NA 138 138 141 -- 139 K 4.0 3.5* 3.5* -- -- CO2 24 27 24 < > 25 BUN 15 15 14 -- 11 CREAT 0.74 0.85 0.82 -- 0.81 GLUC 108* 113* 114* -- 108* MG -- 2.0 2.3 -- 1.8 < > = values in this interval not displayed. IMAGING None new ASSESSMENT AND PLAN In summary, Mr. Paige Montiel is a 66 year old male with a history of TAAD s/p repair (2012), HTN, HLD, persistent AF s/p ablation (2014) and multiple DCCV (last 2015) on apixaban who presented as [facility] on 02/23 due to concern for recurrent TAAD with imaging more suggestive of stable findings from prior repair. #History of TAAD Will attempt to improve impulse control. - Continue carvedilol 12.5 mg BID (limited by further increase due to HR) - Continue amlodipine 10 mg daily - Continue chlorthalidone 25 mg daily - Continue olmesartan 40 mg daily - Increase spironolactone to 50 mg daily - Consider addition of hydralazine pending response #PAF - Continue BB as above - Discuss resuming AC w/ vascular and CTS #Dispo Plan for discharge today. Patient to have repeat BMP locally within 1 week with PCP. Will follow-up with CTS and vascular surgery in the ambulatory setting. Case to be discussed with staff Alessandro Wells MD ([id number]) Fellow Physician, PGY-4 [facility] Cardiovascular Medicine For communication after 5 pm on weekdays and after 12 pm on weekends, please page the following: - Clinical Cardiology [place] all [place] [phone] - All other patients: [place] [phone] - For any urgent or emergent issues, [place] [phone] [facility] STAFF PHYSICIAN NOTE OF PERSONAL INVOLVEMENT IN CARE I have reviewed the documentation obtained and documented by the Fellow. I have personally performed a face to face assessment of the patient and have personally participated on the lainez components of the history, exam and medical decision making and have reviewed and updated the problem list as appropriate. I have personally performed a face to face assessment of the patient and have personally participated in the lainez components of the history, exam and medical decision making. I have discussed the case and management of the patient's care. (more content not included)... [facility] 02-25-2022 Note HNO ID: [id number] Author: Анна Joseph RN Service: Care Management Author Type: Registered Nurse Type: Care Mgt Progress Note Filed: 02/25/2022 2:50 PM Note Text: CARE MANAGEMENT PROGRESS NOTE SERVICE DATE: 02/25/2022 SERVICE TIME: 1358 LOS: 2 days Progress Notes Pt on RA, ntp gtt. CT exam on 02/23 w/ no interval change, no leakage/rupture, no pericardial effusion. 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 Pt using CPAP, no DME's, no home O2. CM following. SIGNATURE: Анна Joseph RN PATIENT NAME: Paige Montiel DATE: February 25, 2022 TIME: 1:58 PM PAGER/CONTACT #: [phone] [facility] 02-25-2022 Note HNO ID: [id number] Author: Felice Zamora MD Service: Cardiovascular Medicine Author Type: Physician Type: Progress Notes Filed: 02/25/2022 10:08 AM Note Text: [facility] HISTORY AND PHYSICAL Paige Montiel [id number] PRIMARY SERVICE: Cardiology: Coronary Intensive Care Unit CHIEF COMPLAINT: Aortic Dissection History of Present Illness: This is a 66 year old male with the following PMHx: - [place] Type A aortic dissection in 2012 (s/p repair 02/16/2013 in [place]), not getting follow-up CT scans or Echo - Hypertension (relatively controlled with readings usually 120s systolic at home) on Amlodipine 10 mg daily, Olmesartan 40 mg daily, triamterene-HCTZ 37.5-25 mg daily. - Atrial fibrillation (on Apixaban 5 mg BID) - Hyperlipidemia on Atorvastatin 40 mg daily and Ezetimibe 19 ng daily - Hypothyroidism on Levothyroxine 150 mcg daily Patient transferred to [facility] from [facility] in [place] on 02/23/2022 due to concerns for acute Type A aortic dissection. CT reviewed here and comment is: CTA from today 02/23/2022 at 09:[address] from 02/18/2022: Repaired type-A Aortic dissection: [place] root about 4.7 cm; Intact surgical graft ascending aorta; residual dissection beyond graft, proximal descending about 4.4 cm (need to confirm in 3D reconstruction); abdominal aorta with poor contrast enhancement; no interval change; no leakage/rupture, no pericardial effusion; patient has coronary calcification CT scan report from 02/16/2013: - Aortic Dissection involving the ascending, arch, and descending aorta terminating at some level below the diaphragm. The [place] and new lumen are approximately 50:50 with flow in both lumens. Patient started on treatment for acute Aortic Dissection at OSH and transferred to out CICU for further evaluation and management. Overnight Remains without any chest pain or SOB. No new symptoms. Physical exam unchanged. Vital signs remain stable off SNP with BP < 120/80 - Carvedilol 12.5mg BID - Amlodipine 10mg daily - Olmesartan 40mg - VALIDATION INTERN--> 70 PHYSICAL EXAM: Mental Status: awake Vitals: BP 131/68 Pulse 61 Temp 36.2 ?C (97.1 ?F) (Axillary) Resp 18 Ht 195.6 cm (6' 5 ) Wt (!) 141.8 kg (312 lb 9.8 oz) SpO2 93% BMI 37.07 kg/m? HR 61 02/25/22 0300 02/25/22 0330 02/25/22 0400 02/25/22 0426 Pulse: (!) 58 61 (!) 59 61 Sinus BP 131/68 02/25/22 0230 02/25/22 0300 02/25/22 0330 02/25/22 0400 BP: 133/68 125/65 121/59 131/68 MAP 93 Hemodynamics: No RHC CV Exam: JVD not elevated Murmur none Respiratory Status: Ventilator N FiO2 RA SAO2 95% PEEP NA Weaning: NA Lungs: Clear Abd: soft Bowel Sounds: active Extremities: Edema none Pulses Normal symmetric pulses in upper and lower extremities and both carotids I/O: Intake/Output Summary (Last 24 hours) at 02/25/2022 0502 Last data filed at 02/24/2022 2300 Gross per 24 hour Intake 1740 ml Output 2000 ml Net -260 ml DATA: Laboratory CBC: Recent Labs 02/25/22 0015 02/24/22 0023 02/23/22 1228 WBC 9.34 8.41 9.21 HB 12.4* 12.4* 14.0 HCT 38.4* 38.1* 42.8 PLT 202 198 201 COAG: Recent Labs 02/25/22 0015 02/24/22 0023 02/23/22 1228 APTT 25.9 28.3 31.0 INR 1.1 1.2 1.2 BMP: Recent Labs 02/25/22 0015 02/24/22 0023 02/23/22 1800 02/23/22 1228 GLUC 113* 114* -- 108* NA 138 141 -- 139 K 3.5* 3.5* -- -- CHLOR 104 104 -- 103 CO2 27 24 28 25 ANION 7* 13 -- 11 BUN 15 14 -- 11 CREAT 0.85 0.82 -- 0.81 CHEM: Recent Labs 02/25/22 0015 02/24/22 0023 02/23/22 1228 ALB 3.5* 3.6* 4.2 TPROT 6.3 6.5 7.0 CA 9.2 9.2 8.9 MG 2.0 2.3 1.8 HEPATIC: Recent Labs 02/25/22 0015 02/24/22 0023 02/23/22 1228 ALKPHOS 67 67 72 ALT 17 18 22 AST 17 18 31 TBILI 0.6 0.6 1.0 CARDIAC ENZYMES: Recent Labs 02/24/22 0023 02/23/22 1758 02/23/22 1228 CK 102 102 122 122 171 171 MB 2.8 3.4 4.2 TROPT <0.010 <0.010 <0.010 ABG: XR CHEST 1V FRONTAL PORT Final Result IMPRESSION: See result. Sales Route Driver: PSC Transcribe Date/Time: Feb 24 2022 5:51A Dictated by : KIMMY MADRID MD This examination was interpreted and the report reviewed and electronically signed by: JAMIN PEREZ MD on Feb 24 2022 7:23AM EST XR CHEST 1V FRONTAL PORT Final Result IMPRESSION: See result. Sales Route Driver: PSCB Transcribe Date/Time: Feb 23 2022 2:58P Dictated by : KENYATTA MICHEL MD This examination was interpreted and the report reviewed and electronically signed by: KENYATTA MICHEL MD on Feb 23 2022 2:59PM EST XR CHEST 1V FRONTAL PORT (Results Pending) XR CHEST 1V FRONTAL PORT (Results Pending) XR CHEST 1V FRONTAL PORT (Results Pending) Chest X-ray: Echo: 02/23/2022 - The left ventricle is normal in size. There is mild concentric left ventricular hypertrophy. Left ventricular systolic function is normal. EF = 65 ? 5% (more content not included)... [facility] 02-23-2022 Note HNO ID: [id number] Author: Анна Joseph RN Service: Care Management Author Type: Registered Nurse Type: Care Mgt Initial Assessment Filed: 02/23/2022 3:48 PM Note Text: CARE MANAGEMENT: ASSESSMENT AND DISCHARGE PLAN SERVICE DATE: February 23, 2022 SERVICE TIME: 1538 PRIMARY CARE PHYSICIAN: Brian Crowley II, MD Primary Contact: Extended Emergency Contact Information Primary Emergency Contact: Dinesh Damaris Mobile Relation: Spouse ADMISSION STATUS: Inpatient Insurance Provider: MEDICARE A AND B NEEDS PRIOR TO DISCHARGE Needs Prior to Discharge: None POTENTIAL TRANSITION PLANS Home Based on clinical judgement, Care Management will address the following needs: No transitional/discharge planning needs at this time Patient's perception of need for this admission: did not assess ADVANCE DIRECTIVES Current Advance Directive: None Workforce Analyst Attempted to Assist with AD Completion: Yes Action: Education Provided MS/BEHAVIOR Baseline Mental Status Prior to this Illness what was the patient's Baseline Mental Status?: Alert AND Oriented Prior to this illness, has anyone described the patient having any of the following behaviors?: Not Applicable Relationship of the informant to the patient:: Self READMISSION Last Discharge Date: N/A Is this Within the Past 30 days? From what level of care did patient present?: Home Last discharge within 30 days: No PATIENT SCREEN Patient/Educational Technology Coordinator Stated Goals: To return home to life as it was Does the patient have transportation upon discharge?: Yes Situation: Spouse able to transport Use of any community resources?: No Does the patient have a stable and supportive living arrangement and home setting?: No Are there any potential risks or gaps identified by risk/functional/fall,etc. scores in the EMR?: No Any potential risks related to substance abuse and/or behavioral health?: No Based on clinical judgement, Care Management will address the following needs: No transitional/discharge planning needs at this time CAREGIVER ASSESSMENT Caregiver is ready, willing and able to meet the patient's needs as recommended by the inter-professional team:: Yes Name of Caregiver: Steff Ocampo MEDICAL Medical Needs: None Medication Adherance I am convinced of the importance of my prescription medication: 0 - Agree Completely I worry that my prescription medication will do more harm than good to me : 0 - Disagree Completely I feel financially burdened by my [id number] expenses for my prescription medication:: 0 - Disagree Completely Risk Score: 0 Patient is categorized as: Low risk < 2 No functional discharge barriers identified at this time. FREEDOM OF CHOICE EXPLAINED: Are you interested in bedside delivery of your medications? No Is Patient Psychosocially Complex?: No ASSESSMENT AND PLAN: 66 YOM [facility] transfer from [facility] in [place] on 02/23/2022 due to concerns for acute Type A aortic dissection. Pt on ntp gtt, RA. 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 Pt using CPAP, no DME's, no home O2. CM following. SIGNATURE: Анна Joseph RN PATIENT NAME: Paige Montiel DATE: February 23, 2022 TIME: 3:38 PM CONTACT #: [phone] [facility] 02-23-2022 Note HNO ID: [id number] Author: Fabienne Armendariz APRN.GLOBAL SOURCING MANAGER Service: ? Author Type: Nurse Practitioner Type: Progress Notes Filed: 02/23/2022 1:42 PM Note Text: [facility] CRITICAL CARE TRANSPORT PROGRESS NOTE Patient Name: Paige Montiel Service Date: 02/23/2022 Referring Provider: Sujit White Accepting Provider: Felice Zamora MD Referring Facility: [facility] Accepting Facility: [facility] MAIN SUBJECTIVE Chief Complaint: Aortic Dissection Reason for Transfer: Patient being transferred for emergent subspecialty care and management not available at the sending facility. History of Present Illness: The following history is what was known to CCT team at time of given care and summarized through review of available medical records, patient/family interview and from referring provider and nursing staff. Paige Montiel is a 66 year old male with a history significant for prior aortic dissection s/p repair (unknown details) [place] [facility] [place], atrial fibrillation/flutter on Eliquis s/p prior ablation, HTN, HLD, hypothyroidism, BPH, GERD, remote L4 spinal cord injury, and left knee replacement who presented to the referring facility for evaluation of right subscapular pain. Patient reports that he has experienced pain under his right scapula for the last 5 days. Denied chest pain, shortness of breath or numbness or tingling in extremities. The patient was seen by his PCP for a wellness check prompting an outpatient CT chest that revealed an aortic dissection. The patient was notified and presented to the ED for further evaluation and management. On arrival to the ED he was evaluated with a CTA chest that revealed an aortic dissection from proximal to the great vessels through the arch, descending aorta, and down the left common iliac and into the SMA. Lab work was remarkable for a coagulopathy (INR 1.7). The patient was hypertensive and placed on an Esmolol infusion with some improvement. At this time, the provider managing the patient requested transfer to [facility] for tertiary and/or quaternary services not available at the referring facility. The provider managing the patient requested the [facility] Critical Care Transport Team to transport and treat the patient for the purpose of tertiary care, evaluation, and management of the patient?s emergent medical condition. Patient condition at time of exam was: critically ill. Due to the unique circumstances of the patient, it was determined that this was the closest, most appropriate facility by referring provider. Air medical transport was requested to reduce the [id number] time, 15 minutes by air vs. approximately 75 minutes by ground, with the potential for increased ground transport time secondary to: distance between facilities and the patient's condition requiring an emergent procedure or evaluation not available at the referring facility and distance between facilities and ground round transport time would be excessive and detrimental to patient given current clinical status ROS: A complete review of systems was performed and is negative except as noted in [place] PAST HISTORY: [place]unknown details[place] [facility] [place] atrial fibrillation/flutter on Eliquis s/p prior ablation, HTN, HLD, hypothyroidism, BPH, GERD, remote L4 spinal cord injury, and left knee replacement ALLERGIES: Patient has no known allergies. SOCIAL HISTORY: Denies smoking or illicit drug use FAMILY HISTORY: family history is not on file. HOME MEDICATIONS: Eliquis, atorvastatin, Flomax, Amlodipine, Protonix, Maxzide, Benicar, Zetia, Levothyroxine, potassium Significant Medications Administered by Referring Facility: Esmolol infusion OBJECTIVE Recent Labs, Diagnostics AND Procedure Reports reviewed as available. Referring Facility Labs CBC: WBC 8.4k, Hgb 14.3, Plt 216K Coags: INR 1.7 Chemistry: Na 139, K 3.6, Cl 105, CO2 25, BUN 11, SCr 0.89, Glu 128 Cardiac Enzymes: HS Trop 12 , BNP 25 Diagnostics AND Procedure Reports ECG: Atrial flutter with non-specific ST T wave abnormalities, Rate 61, QRS 74, QT 416, QTc 418 CXR: Report reviewed - Cardiomegaly, tortuous aorta CTA Chest: Report reviewed - Aortic dissection of the ascending aorta proximal to the great vessel through the aortic arch, descending aorta down through the left common iliac and including the SMA. Great vessels coming off the true lumen, left renal coming off the false lumen. Procedure/Operative Reports: None Invasive Lines/Devices/Tubes Placed by Referring Facility: PIV x 2 PHYSICAL EXAM: Upon CCT Arrival at Referring Facility Vital Signs: BP 155/81mmHg, HR 61bpm, RR 18, SpO2 100% Oxygen/Ventilator Settings: Room air Constitutional: Vital signs reviewed. General Appearance: Lying in bed, acutely ill, calm Skin: Skin is pink, warm and dry. HEENT: (more content not included)... [facility] 02-23-2022 History of Past i llness Narrative Problem Noted Date Resolved Date Hypothyroidism 02/23/2022 02/23/2022 documented as of this encounter (statuses as of 02/23/2022) [facility]06-15-2022 History of Present illness Narrative* Fabienne Armendariz APRN.GLOBAL SOURCING MANAGER - 02/23/2022 12:48 PM EDT Images from the original note were not included. [facility] CRITICAL CARE TRANSPORT PROGRESS NOTE Patient Name: Paige Montiel Service Date: 02/23/2022 Referring Provider: Sujit White Accepting Provider: Felice Zamora MD Referring Facility: [facility] Accepting Facility: [facility] MAIN SUBJECTIVE Chief Complaint: Aortic Dissection Reason for Transfer: Patient being transferred for emergent subspecialty care and management not available at the sending facility. History of Present Illness: The following history is what was known to CCT team at time of given care and summarized through review of available medical records, patient/family interview and from referring provider and nursing staff. Paige Montiel is a 66 year old male with a history significant for prior aortic dissection [place] repair (unknown details[place] [facility] [place], atrial fibrillation/flutter on Eliquis s/p prior ablation, HTN, HLD, hypothyroidism, BPH, GERD, remote L4 spinal cord injury, and left knee replacement who presented to the referring facility for evaluation of right subscapular pain. Patient reports that he has experienced pain under his right scapula for the last 5 days. Denied chest pain, shortness of breath or numbness or tingling in extremities. The patient was seen by his PCP for a wellness check prompting an outpatient CT chest that revealed an aortic dissection. The patient was notified and presented to the ED for further evaluation and management. On arrival to the ED he was evaluated with a CTA chest that revealed an aortic dissection from proximal to the great vessels through the arch, descending aorta, and down the left common iliac and into the SMA. Lab work was remarkable for a coagulopathy (INR 1.7). The patient was hypertensive and placed on an Esmolol infusion with some improvement. At this time, the provider managing the patient requested transfer to [facility] for tertiary and/or quaternary services not available at the referring facility. The provider managing the patient requested the [facility] Critical Care Transport Team to transport and treat the patient for the purpose of tertiary care, evaluation, and management of the patient s emergent medical condition. Patient condition at time of exam was: critically ill. Due to the unique circumstances of the patient, it was determined that this was the closest, most appropriate facility by referring provider. Air medical transport was requested to reduce the [id number] time, 15 minutes by air vs. approximately 75 minutes by ground, with the potential for increased ground transport time secondary to: distance between facilities and the patient's condition requiring an emergent procedure or evaluation not available at the referring facility and distance between facilities and ground round transport time would be excessive and detrimental to patient given current clinical status ROS: A complete review of systems was performed and is negative except as noted in [place] PAST HISTORY: [place]ortic dissection [place] repair (unknown details[place] [facility] [place], atrial fibrillation/flutter on Eliquis s/p prior ablation, HTN, HLD, hypothyroidism, BPH, GERD, remote L4 spinal cord injury, and left knee replacement ALLERGIES: Patient has no known allergies. SOCIAL HISTORY: Denies smoking or illicit drug use FAMILY HISTORY: family history is not on file. HOME MEDICATIONS: Eliquis, atorvastatin, Flomax, Amlodipine, Protonix, Maxzide, Benicar, Zetia, Levothyroxine, potassium Significant Medications Administered by Referring Facility: Esmolol infusion OBJECTIVE Recent Labs, Diagnostics & Procedure Reports reviewed as available. Referring Facility Labs CBC: WBC 8.4k, Hgb 14.3, Plt 216K Coags: INR 1.7 Chemistry: Na 139, K 3.6, Cl 105, CO2 25, BUN 11, SCr 0.89, Glu 128 Cardiac Enzymes: HS Trop 12 , BNP 25 Diagnostics & Procedure Reports ECG: Atrial flutter with non-specific ST T wave abnormalities, Rate 61, QRS 74, QT 416, QTc 418 CXR: Report reviewed - Cardiomegaly, tortuous aorta CTA Chest: Report reviewed - Aortic dissection of the ascending aorta proximal to the great vessel through the aortic arch, descending aorta down through the left common iliac and including the SMA. Great vessels coming off the true lumen, left renal coming off the false lumen. Procedure/Operative Reports: None Invasive Lines/Devices/Tubes Placed by Referring Facility: PIV x 2 PHYSICAL EXAM: Upon CCT Arrival at Referring Facility Vital Signs: BP 155/81mmHg, HR 61bpm, RR 18, SpO2 100% Oxygen/Ventilator Settings: Room air Constitutional: Vital signs reviewed. General Appearance: Lying in bed, acutely ill, calm Skin: Skin is pink, warm and dry. HEENT: NC/AT, MICHELLE ~ 4 mm, trachea midline. Mucous membranes pink and moist. Respiratory: Respiratory effort is normal, able to speak in sentences, equal rise and fall of chest. Lungs clear and equal. Denies shortness of breath Cardiac: Irregular rate and rhythm, S1, S2 normal. No JVD noted. Extremities warm, well perfused. Radial pulses 2+ bilaterally. GI: Soft, non-distended, non-tender, + bowel sounds - no rebound, guarding or peritonitis. /Rectal: No suprapubic tenderness. Musculoskeletal: Movement of extremities x 4 to command, grasp equal, denies numbness, tingling. Neurologic: Awake, alert and oriented to person, place, time and situation. No focal deficits noted. Grasps equal and firm, push/pulls equal and strong. Follows simple commands. Clear speech. Glascow Coma Score: eye response: spontaneous = 4, motor response: obeys commands =6, verbal response: oriented = 5 and GCS Total: 15 TRANSPORT COURSE: Upon bedside arrival at referring facility, report was received from referring facility staff. The patient was assessed and a detailed physical exam was performed. Initial exam findings were as described above. Patient was placed on the transport monitor and all transport equipment transitioned in standard fashion. The patient was transferred to the transport cot, secured, and transported to the Aircraft and loaded without incident. Patient was medically managed, monitored, and reassessed throughout transport and after each major move. Medications Managed & Administered by CCT: Labetalol IV - total 90 mg Procedures Performed by CCT: None ASSESSMENT: Paige Montiel is a 66 year old male with a history significant for prior aortic dissection s/[place] repair [place]unknown details[place] [facility] [place], atrial fibrillation/flutter on Eliquis s/p prior ablation, HTN, HLD, hypothyroidism, BPH, GERD, remote L4 spinal cord injury, and left knee replacement who presented to the referring facility for evaluation of right subscapular pain. Patient reports that he has experienced pain under his right scapula for the last 5 days with imaging revealing an acute Type A aortic dissection. PLAN: Acute [place] Type A Aortic Dissection Hypertensive Emergency Coagulopathy - Continuous cardiac / hemodynamic and respiratory monitoring - Blood pressure control with goal SBP of < 110 - Esmolol infusion discontinued, Labetalol givenfor blood pressure control - Impulse control with a goal heart rate of < 60 - As above - Denies chest pain, shortness of breath, numbness or tingling of extremities, complains of mild discomfort under right scapula, does not wish to have analgesia at this time - Transfer to higher level of complex critical care services - Continue to monitor patient condition and need for intervention during transport The transport was completed without significant incident or change in the patient's status. The patient was transported to the [facility] by [facility] (Helicopter) for tertiary and/or quaternary evaluation and management of the emergent and critical medical condition. Upon arrival to the receiving facility, a qrkr-[id number]-[id number] report was given to the bedside nursing staff and receiving provider. Patient care was transferred. The patient condition was critically ill at the time of transfer. Vital Signs at time care transferred to the receiving facility unit: BP 130/86mmHg, HR 60bpm, RR 18, SpO2 100%, on Room Air SPECIAL EQUIPMENT: None MODE OF TRANSPORT: [employer]otor (Helicopter) CRITICAL CARE TIME: I personally performed 35 minutes of critical care time in the management of this patient due to a high probability of sudden, clinically significant deterioration, which requiresa high level of clinical supervision and intervention exclusive of separately billable procedures, ambulance charges and treating other patients Time I spent with family or surrogate(s) is included only if the patient was incapable of providingthe necessary information or participating in medical decision making. The patient received evaluation of the history and physical exam, interpretation and review of referring hospital records including imaging, lab work, interventions, treatments and discussion with referring and receiving providers during the time critical care services were provided. This was necessary to treat or prevent further deterioration of the following condition(s): SHIATSU THERAPIST impairment, cardiac impairment, pulmonary impairment, acid/base imbalance, electrolyte imbalance, and multisystem failure; which the patient had and/or had a high probability of suddenly developing. SIGNATURE: Fabienne Armendariz DNP, LEAD LEVEL DESIGNER-GLOBAL SOURCING MANAGER, ACNP-BC, CPNP-AC Acute Care Nurse Practitioner [facility] Critical Care Transport Team [facility] Miscellaneous Notes* Telephone Encounter - Jonelle Henriquez - 02/22/2022 4:57 PM EDT Reason for call: Pt called and he would like to schedule an appointment with vascular surgeon. Home and cell number: : [phone] Diagnosis: Abdominal Aortic dissection Jonelle Diamond documented in this encounterBerger HospitalEvaluation noteNo assessment information availableGreen [facility] Work Phone: Evaluation note* Diagnosis Onset Date Resolution Status Chest pain acute [facility] Work Phone: Evaluation note* Diagnosis Atrial flutter, unspecified type (Multi)- Primary High risk medication use Mixed hyperlipidemia Primary hypertension Unspecified essential hypertension Observed sleep apnea BMI 38.0-38.9,adult Hypothyroidism, unspecified type Hypotension due to drugs Other iatrogenic hypotension Bradycardia Other specified cardiac dysrhythmias documented in this encounter [facility] Work Phone: Reason for referral (narrative)* Consultation (Routine) - Authorized Specialty Diagnoses / Procedures Referred By Contjuan m t Referred To Contact Cardiology Diagnoses Atrial flutter, unspecified type (Multi) Procedures Follow Up In Cardiology Day Romano MD [address] [facility] [address] [place] [address] Day Romano MD [address] [facility] [address] [place] [address] Referral ID Status Reason Start Date Expiration Date V isits Requested Visits Authorized [id number] Authorized 02/15/2024 02/14/2025 1 1 [facility] Work Phone: Summary Purpose Family History No Family History Records FoundUnknown Family Member Name Dates Details Heart problem: Father Status:Active Relationship Condition Age at Onset Recorded Date/T nicole father Dissection of aorta Unknown Unknown Family Member Name Dates Details Heart problem: Father Status:Active Advance Directives No Advanced Directives Records Found Advance Directive Response Recorded Date/ Time Advance Directives No February 23 9:45am Documents on File Type Date Recorded Patient Educational Technology Coordinator Expl anation Advance Directive(s) 02/23/2022 7:40 PM Chief Complaint and Reason for Visit Chief Complaint sent by Chief Complaint chest pains Reason for Visit Chest pain Medications Administered Section Inactive Administered Medications - up to 3 most recent administrations Medication Order MAR Action Action Date Dose Rate Site labetalol 10 mg injection syringe (NORMODYNE) 10 mg, INTRAVENOUS, ONCE, 1 dose, On Mon02/23/22 at 1300, Protect From Light Given 02/23/2022 11:49 AM EDT 10 mg labetalol 20 mg injection syringe (NORMODYNE) 20 mg, INTRAVENOUS, ONCE, 1 dose, On Mon02/23/22 at 1300, Protect From Light Given 02/23/2022 12:10 PM EDT 20 mg labetalol 20 mg injection syringe (NORMODYNE) 20 mg, INTRAVENOUS, ONCE, 1 dose, On Mon02/23/22 at 1300, Protect From Light Given 02/23/2022 11:55 AM EDT 20 mg labetalol 40 mg injection syringe (NORMODYNE) 40 mg, INTRAVENOUS, ONCE, 1 dose, On Mon02/23/22 at 1300, Protect From Light Given 02/23/2022 12:02 PM EDT 40 mg Health Concerns Infection Onset Date Last Indicated Resolved Time COVID-19 Rule-Out 02/23/2022 02/23/2022 02/23/2022 2:14 PM EDT Chief Complaint * PAIGE MONTIEL is being seen for a 6 month follow-up of. * Patient is in the office for follow-up for the problems noted below. Since he was last seen in the office he had a visit to the hospital in June 2022 for chest pain. 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 During that visithis TSH was around 18 and unfortunately was never addressed. He is on thyroid supplement and scheduled to see his PCP next week. Has not had lipid profile since last year. This was ordered as well. He had minor issues with her lower back limiting his physical activities and as a result his weight has increased. He does have sleep apnea on CPAP machine and has been compliant. He has chronic for after failing ablation, his rhythm appears regular on examination today but that is because he has 4:1AV conduction. His cardiac examination otherwise was unremarkable his lungs sounded normal he has no lower extremity edema. He has no side effect of current medications which will be renewed. * Assessment/recommendations: * 1 permanent atrial flutter that remains asymptomatic status post radiofrequency ablation.. The patient will be managed with rate control and anticoagulation due to lack of symptoms, Nuclear stress test at [facility] 2018 was normal, echocardiogram recently showed normal ejection fraction in 2020 * 2 high-risk medication with anticoagulation with no bleeding complications, CBC is ordered * 3 hypertension on medical therapy under control, * 4 sleep apnea on CPAP machine * 5 hyperlipidemia on statin therapy, due for lipid profile which is ordered * 6 morbid obesity, more weight control was recommended emphasizing low calorie diet. * 7 hypothyroidism on replacement therapy followed by PCP, TSH is ordered since his TSH in June 2022 was elevated. * 8 status post type I ascending aortic dissection status post surgical repair in [place], most recentCT scan was June 2022 with no progression or changes Additional Source Comments Reason for Visit (unrecogniz ed section and content) Reason Comments Referral Reason Comments Appointment Reason Comments Critical Care Transport Reason Comments Insurance Authorization Reason Comments Follow-up 6m (unrecognized sect ion and content) No Status Records FoundNo Status Records FoundNo Status Records FoundNo Status Records FoundNo Status Records FoundNo Status Records FoundNo Status Records FoundNo Status Records FoundNo Status Records FoundNo Status Records FoundNo Status Records Found INFORMATION SOURCE (unrecogn ized section and content) DATE CREATED AUTHOR 07/19/2019 [facility] DATE CREATED AUTHOR AUTHOR'S ORGANIZ ATION 02/04/2021 [facility] DATE CREATED AUTHOR AUTHOR'S ORGANIZ ATION 03/09/2022 [facility] DATE CREATED AUTHOR AUTHOR'S ORGANIZ ATION 03/19/2022 [facility] dical Specialist DATE CREATED AUTHOR AUTHOR'S ORGANIZ ATION 01/20/2023 [facility] DATE CREATED AUTHOR AUTHOR'S ORGANIZ ATION 04/27/2023 [facility] DATE CREATED AUTHOR AUTHOR'S ORGANIZ ATION 05/04/2023 [facility] DATE CREATED AUTHOR AUTHOR'S ORGANIZ ATION 06/15/2023 [facility] DATE CREATED AUTHOR AUTHOR'S ORGANIZ ATION 06/15/2023 [facility] ical Center DATE CREATED AUTHOR AUTHOR'S ORGANIZ ATION 02/16/2024 [facility] DATE CREATED AUTHOR AUTHOR'S ORGANIZ ATION 04/29/2024 [facility] dical Specialists EPIC Source Comments (unrecognize d section and content) In the event this informatio n is protected by the Federal Confidentiality of Alcohol and Drug Abuse Patient Records regulations: The Federal rules restrict any use of the information to criminally investigate or prosecute any alcohol or drug abuse patient.[facility] HospitalIn the event this information is protected by the Federal Confidentiality of Alcohol and Drug Abuse Patient Records regulations: The Federal rules restrict any use of the information to criminally investigate or prosecute any alcohol or drug abuse patient.[facility] HospitalIn the event this information is protected by the Federal Confidentiality of Alcohol and Drug Abuse Patient Records regulations: The Federal rules restrict any use of the information to criminally investigate or prosecute any alcohol or drug abuse patient.[facility] Care Teams (unrecognized sec tion and content) Team Status: Active Member Role Status Dates Brian Crowley II MD Primary Care Provider Active Team Status: Inactive Member Role Status Dates Brian Crowley II MD Primary Care Provider Active Jose Owens DO Attending Provider Active Supervisor [employer] Relationship Specialty Start Date End Date Brian Crowley II [address] [place] [address] PCP - General Internal Medicine 02/22/22 Day Romano [address] [facility] [address] [place] [address] Cardiology 02/22/22 Team Status: Inactive Member Role Status Dates Brian Crowley II MD Primary Care Provider Active Sujit White DO Emergency Provider Active Supervisor [employer] Relationship Specialty Start Date End Date Brian Crowley II [address] [place] [address] PCP - General Internal Medicine 02/22/22 Day Romano [address] [facility] [address] [place] [phone] Cardiology 02/22/22 Supervisor [employer] Relationship Specialty Start Date End Date Brian Crowley II [address] [place], [place] [id number] PCP - General Internal Medicine 02/22/22 Day Romano [address] [facility] [address] [place] [phone] Cardiology 02/22/22 Team Status: Active Member Role Status Dates Brian Crowley II MD Primary Care Provider Active Sujit White , DO Emergency Provider Active Vivek Muñiz , DO Admit Provider, Attending Provider Active Team Status: Inactive Member Role Status Dates Brian Crowley II MD Primary Care Provider Active Sujit White , DO Emergency Provider Active Vivek Muñiz , DO Admit Provider, Attending Provider Active Supervisor [employer] Relationship Specialty Start Date End Date Brian Crowley MD [address] [facility] [address] [place] [address] PCP - General 05/12/23 Goals (unrecognized section and content) Goals may be documented in a n alternate sectionGoals may be documented in an alternate sectionGoals may be documented in an alternate section FOR RECORDS PERTAINING TO PATIENTS WHO ARE OR HAVE BEEN ENROLLED IN A CHEMICAL DEPENDENCY/SUBSTANCEABUSE PROGRAM, SOME INFORMATION MAY BE OMITTED. This clinical summary was aggregated from multiple sources. Caution should be exercised in using it in the provision of clinical care. This summary normalizes information from multiple sources, and as a consequence, information in this document may materially change the coding, format and clinical context of patient data. In addition, data may be omitted in some cases. CLINICAL DECISIONS SHOULD BE BASED ON THE PRIMARY CLINICAL RECORDS. [facility]. provides no warranty or guarantee of the accuracy or completeness of information in this document.
== END 2024-05-02 09:22 | disposition home or self-care (01) ==
LOC: FL 09:21
PROVIDERS: PCP Internal Medicine; Visit Provider Internal Medicine
DX: R13.19 Other dysphagia (principal); K21.9 Gastro-esophageal reflux disease without esophagitis
CPT/HCPCS: 74246; 76120